=== PATIENT | female | born 1980 | race Caucasian/White ===

== ENCOUNTER 2024-10-01 19:21 | Emergency (ER) | payer MEDICAID, SELFPAY ==
[2024-10-01 19:25] VITALS: BP 140/83; PULSE 74; TEMP 36.9; O2SAT 97; BMI 25.1
--- NOTE | 2024-10-01 19:36 | ED_ITS ---
HPI - Eye Problem General Chief complaint: Eye Problems Stated complaint: cat scratched eye Time Seen by Provider: 10/01/24 19:32 Source: patient Mode of arrival: walk-in Limitations: no limitations History of Present Illness HPI Narrative: Patient is a 44-year-old female who presents to the emergency department for scratch to the right orbit that occurred just prior to arrival. She states she was scratched by her cat. Unknown last tetanus. She has no concern for . She is not sure if she was scratched in the eye but is noted to have a scratch of the right upper eyelid and a minimal scratch of the right lower orbit. No active bleeding. She denies visual loss although she states that her right eye is tearing and seems mildly blurry. She is not wearing contact lenses. Related Data Previous Rx's ?Medication ?Instructions ?Recorded amoxicillin 875 mg-potassium 1 tab PO Q12H #20 tabs 10/01/24 clavulanate 125 mg tablet hydrocodone 5 mg-acetaminophen 325 1 tab PO Q6H PRN pain 3 days #12 10/01/24 mg tablet tabs ketorolac 10 mg tablet 10 mg PO TID PRN pain #10 tabs 10/01/24 Review of Systems ROS Constitutional Denies: fever or chills Ears, nose, mouth, and throat Denies: throat pain or nasal congestion Respiratory Denies: shortness of breath Gastrointestinal Denies: nausea or vomiting Integumentary/Breast Denies: rash Neurological Denies: headache, numbness in extremities or weakness in extremities Hematologic/Lymphatic Denies: easy bruising or easy bleeding PFSH PFSH Social History Little interest or pleasure in doing things: not at all Feeling down, depressed, or hopeless: not at all Exam Narrative Exam Narrative: Gen.: Awake, alert, in no distress Head: Normocephalic, atraumatic ENT: Right eye conjunctival with no erythema or injection. Examined under Lombardi lamp with fluorescein and tetracaine, no evidence of corneal abrasion or laceration. Superficial minimal abrasion noted to the right inferior orbit and a 1.5 cm superficial laceration noted to the right eyelid. No deep laceration or extension through the eyelid noted. Normal extraocular muscle motion. Respiratory: No respiratory distress Extremities: Moves extremities equally Psych: Normal mood and affect Neuro: No focal neuro deficit Skin: Warm, dry Constitutional Vital Signs, click to edit/add: Last Vital Signs Temp 98.4 F 10/01/24 19:25 Pulse 74 10/01/24 19:25 Resp 16 10/01/24 19:25 BP 140/83 10/01/24 19:25 Pulse Ox 97 10/01/24 19:25 O2 Del Method Room Air 10/01/24 19:25 Course Vital Signs Vital signs: Vital Signs Temperature 98.4 F 10/01/24 19:25 Pulse Rate 74 10/01/24 19:25 Respiratory Rate 16 10/01/24 19:25 Blood Pressure 140/83 10/01/24 19:25 Pulse Oximetry 97 10/01/24 19:25 Oxygen Delivery Method Room Air 10/01/24 19:25 Temperature 98.4 F 10/01/24 19:25 Pulse Rate 74 10/01/24 19:25 Respiratory Rate 16 10/01/24 19:25 Blood Pressure 140/83 10/01/24 19:25 Pulse Oximetry 97 10/01/24 19:25 Oxygen Delivery Method Room Air 10/01/24 19:25 MDM - Eye Problem MDM Narrative Medical decision making narrative: Patient did decline a tetanus update in the emergency department as she has multiple allergies to additives and injections, she will check with her primary care office about a tetanus update in the next 72 hours. The abrasions were cleansed with saline, the eyelid laceration was approximated only in the center of the laceration with a small amount of tissue adhesive to allow for better healing. No indication for sutures at this time. The remainder of the laceration is well approximated. Stain and exam of the conjunctive and cornea show no evidence of corneal abrasion or laceration. Augmentin, short course of analgesics and NSAIDs given for home. Follow-up with PCP and return to the ER if symptoms change or worsen. SUPERVISED APC VISIT, PHYSICIAN ATTESTATION: Based on the medical record the care appears appropriate. ? Medical Records Attestation: I reviewed the patient's medical records. Discharge Plan Discharge Chief Complaint: Eye Problems Clinical Impression: Cat scratch of face Patient Disposition: Home, Self-Care Time of Disposition Decision: 19:52 Condition: Good Prescriptions / Home Meds: New hydrocodone-acetaminophen 5-325 mg tablet 1 tab PO Q6H PRN (Reason: pain) 3 Days Qty: 12 0RF Rx Instructions: DX: G50.1 ketorolac 10 mg tablet 10 mg PO TID PRN (Reason: pain) Qty: 10 0RF amoxicillin-pot clavulanate 875-125 mg tablet 1 tab PO Q12H Qty: 20 0RF Print Language: Macedonian Instructions: Animal Bite (ED) Additional Instructions: Please check with your doctor's office about a tetanus update if you would like one within 72 hours Referrals: Physician,Non-Staff, MD [Primary Care Provider] - 1 week
[2024-10-01] MEDS: FLUORESCEIN SODIUM 1 MG STRIP OP (19:55)
[2024-10-01] MEDS: TETRACAINE HCL 0.5% OP SOL 80 DROP/4 ML BOTTLE OP (19:55)
[2024-10-01] MEDS: AMOXICILLIN/POT CLAV 875-125 MG TABLET 1 TAB PO (20:00)
[2024-10-01 20:06] VITALS: O2SAT 100
== END 2024-10-01 20:06 | disposition home or self-care (01) ==
PROVIDERS: Emergency Provider Emergency Medicine; PCP Family Medicine
DX: S00.211A Abrasion of right eyelid and periocular area, initial encounter (principal); W55.03XA Scratched by cat, initial encounter
CPT/HCPCS: 99283

== ENCOUNTER 2025-01-16 09:53 | Outpatient (OUT) | payer MEDICAID, SELFPAY ==
[2025-01-16 10:14] LABS: Basophils Percent Auto 0.7 % (0.2-2.0); Eosinophils Absolute Auto 0.1 10^3/uL (0.0-0.7); Hematocrit 38.6 % (36.0-48.0); Hemoglobin 12.8 g/dL (12.0-16.0); Immature Granulocytes Abs Auto 0.01 10^3/uL (0.00-0.03); Immature Granulocytes Pct Auto 0.2 % (0.0-0.5); Lymphocytes Absolute Auto 1.7 10^3/uL (1.2-3.8); Lymphocytes Percent Auto 42.6 % (20.5-60.0); Mean Corpuscular HGB Conc 33.2 g/dL (29.9-35.2); Mean Corpuscular Hemoglobin 30.5 pg (26.7-34.0); Mean Corpuscular Volume 92.1 fL (81.0-99.0); Mean Platelet Volume 11.4 fL (9.5-13.5); Monocytes Absolute Auto 0.4 10^3/uL (0.3-0.8); Monocytes Percent Auto 9.3 % (1.7-12.0); Neutrophils Absolute Auto 1.8 10^3/uL (1.4-6.5); Neutrophils Percent Auto 45.2 % (43.0-75.0); Platelet Count 192 10^3/uL (150-450); Red Blood Count 4.19 10^6/uL (4.20-5.40); Red Cell Distribution Width 12.8 % (11.0-15.0); White Blood Count 4.1 10^3/uL (4.0-11.0)
[2025-01-16 11:10] LABS: Anion Gap 10.2; BUN Creatinine Ratio 28.8; Calcium 8.7 mg/dL (8.5-10.1); Carbon Dioxide 29.6 mmol/L (21.0-32.0); Chloride 105 mmol/L (98-107); Estimated GFR (African America >60 (>=60 mL/min/1.73m^2); Estimated GFR (Non-African Ame >60 (>=60 mL/min/1.73m^2); Glucose 82 mg/dL (74-106); Potassium 3.8 mmol/L (3.5-5.1); Sodium 141 mmol/L (136-145); Thyroid Stimulating Hormone 1.214 uIU/mL (0.358-3.740)
== END 2025-01-16 09:54 | disposition home or self-care (01) ==
LOC: LAB 09:57
PROVIDERS: PCP Family Medicine; Visit Provider Family Medicine
DX: Z00.00 Encounter for general adult medical examination without abnormal findings (principal)
CPT/HCPCS: 36415; 80048; 84439; 84443; 85025

== ENCOUNTER 2025-01-17 11:26 | Outpatient (OUT) | payer MEDICAID, SELFPAY ==
[2025-01-17 12:10] LABS: Alanine Aminotransferase 20 U/L (14-59); Albumin Globulin Ratio 1.1; Albumin Level 3.6 g/dL (3.4-5.0); Alkaline Phosphatase 79 U/L (46-116); Anion Gap 10.1; Aspartate Amino Transferase 16 U/L (15-37); BUN Creatinine Ratio 33.3; Bilirubin Total 0.6 mg/dL (0.2-1.0); Calcium 8.5 mg/dL (8.5-10.1); Chloride 106 mmol/L (98-107); Chol HDL Ratio 2.6; Cholesterol 237 mg/dL (<=200); Estimated GFR (African America >60 (>=60 mL/min/1.73m^2); Estimated GFR (Non-African Ame >60 (>=60 mL/min/1.73m^2); Globulin 3.2 g/dL; Glucose 76 mg/dL (74-106); HDL Cholesterol 91 mg/dL (40-60); Potassium 4.1 mmol/L (3.5-5.1); Sodium 141 mmol/L (136-145); Total Protein 6.8 g/dL (6.4-8.2); Triglycerides 31 mg/dL (<=150); VLDL CHOLESTEROL 6.2 mg/dL
== END 2025-01-17 11:27 | disposition home or self-care (01) ==
LOC: LAB 11:29
PROVIDERS: PCP Family Medicine; Visit Provider Family Medicine
DX: Z00.00 Encounter for general adult medical examination without abnormal findings (principal)
CPT/HCPCS: 36415; 80053; 80061

== ENCOUNTER 2025-02-14 08:42 | Outpatient (OUT) | payer MEDICAID, SELFPAY ==
--- OUTSIDE RECORDS SUMMARY | 2024-02-28 | XMS_ITS ---
Author Name Auto Generated Organization [facility] Care Team Providers Care Public Administration Teacher Name Role Phone NIKOLAS CABALLERO Referring Unavailable NIKOLAS CABALLERO Primary Care Unavailable PROBLEMS DATE TYPE CONDITION / CODE ATTENDING STATUS [facility] RCE 02/28/2024 Admitting diagnosis Ankyloglossia / Q38.1(ICD-10) NA Active [facility] PROCEDURES No Procedure Records Found RESULTS No Result Records Found ALLERGIES No Allergies Records Found ENCOUNTERS ADMIT/DISCHARGE ACCOUNT NUMBER ADMITTING ENCOUNTER CLASS LOC ATION SOURCE 02/28/2024 [id number] Ambulatory Building:[facility] PAYERS ENCOUNTER GUARANTOR PAYER SUBSCRIBER SOURCE 02/28/2024 LALITA SABADOB: [id number] [address] [address]Qbt: (HP) Primary Insurance:[employer] icy Number: [id number] tive Date:2022-10-26 LALITA SABADOB: [id number] [address] [address]Xvv: (RH) [facility]
--- OUTSIDE RECORDS SUMMARY | 2025-01-10 07:50 | XMS_ITS ---
Author Organization [facility] Address [address] [place] [address] Care Team Providers Care Consulting Services Project Manager Name Role Phone Queenie Suarez Primary Care Provider Dr. Ayo Bradley [facility] [phone] REASON FOR VISIT FILLING Encounters Encounter Location Date Provider Diagnosis [facility] [address] [place] [address] 01/10/2025 Ayo Bradley Plan Of Treatment Next Appt Details Provider Name:Pauline Bernard , 10/08/2025 01:00:00 PM, [address] [place], [address], Progress Notes * LALITA SABA TDOB:1980 (45 yo F)Acc No.[id number]:01/10/2025 Patient: Damaso AMIRAHLALITA Provider: Laney Bradley DDS :1980 A ge:44 Y S ex:Female Date:01/10/2025 Address:[address] [place], [place] [id number] Pcp:Queenie Delgado Subjective: * Chief Complaints: * 1 . FILLING. * Medical History: Objective: * Vitals: Assessment: Plan: * Treatment: * Images: * Electronic signature of Dr. Ayo Bradley , DMD on 02/14/2025 at 08:48 AM EDT Sign off status: Pending * Provider: Laney Bradley DDS Date: 0 01/10/2025 Generated for Refugio jaimes/Justin/Le on: 0 02/14/2025 08:48 AM EDT
--- OUTSIDE RECORDS SUMMARY | 2025-02-14 08:48 | XMS_ITS | Patient Health Record ---
Author Organization [facility] Address [address] [place] [address] Care Team Providers Care Seedling Puller Name Role Phone Queenie Suarez Primary Care Provider [phone] Dr. Ayo Bradley Unavailable [phone] Yonatan Hinton Unavailable [phone] Pauline Bernard Unavailable [phone] Haris Mensah Unavailable [phone] Mikaela Cedillo Unavailable [phone] Cristin Boudreaux Unavailable [phone] Reason For Referral No Information Encounters Encounter Location Date Provider Diagnosis [facility] [address] [place] [address] 06/12/2024 Pauline Bernard Acute gingivitis, plaque induced K05.00 [facility] [address] [place] [address] 02/12/2025 Pauline Bernard Acute gingivitis, plaque induced K05.00 [facility] [address] [place] [address] 06/13/2024 Ayo Bradley Dental caries on pit and fissure surface penetrating into dentin K02.52 [facility] [address] [place] [address] 07/03/2024 Yonatan Hinton Dental caries on pit and fissure surface penetrating into dentin K02.52 [facility] [address] [place] [address] 10/02/2024 Cristin Boudreaux Dental caries on pit and fissure surface penetrating into dentin K02.52 [facility] [address] [place] [address] 10/08/2024 Ayo Bradley Dental caries on pit and fissure surface penetrating into dentin K02.52 [facility] [address] [place] [address] 10/16/2024 Ayo Bradley Dental caries on pit and fissure surface penetrating into dentin K02.52 [address] [place] [address] 05/02/2024 Yonatan Hinton Dental caries on pit and fissure surface penetrating into dentin K02.52 ; Encounter for dental examination and cleaning with abnormal findings Z01.21 and Other dental procedure status Z98.818 [facility] [address] [place] [address] 03/25/2024 Yonatan Hinton Dental caries on pit and fissure surface penetrating into dentin K02.52 ; Necrosis of pulp K04.1 ; Acute gingivitis, plaque induced K05.00 ; Other dental procedure status Z98.818 and Encounter for dental examination and cleaning with abnormal findings Z01.21 Assessments Encounter Date Diagnosis (ICD Code) Assessment Notes Treatment Notes Treatment Clinical Notes Section Notes 03/25/2024 Dental caries on pit and fissure surface penetrating into dentin (ICD-10 - K02.52) 06/12/2024 Acute gingivitis, plaque induced (ICD-10 - K05.00) 06/13/2024 Dental caries on pit and fissure surface penetrating into dentin (ICD-10 - K02.52) 07/03/2024 Dental caries on pit and fissure surface penetrating into dentin (ICD-10 - K02.52) 10/02/2024 Dental caries on pit and fissure surface penetrating into dentin (ICD-10 - K02.52) 10/08/2024 Dental caries on pit and fissure surface penetrating into dentin (ICD-10 - K02.52) 10/16/2024 Dental caries on pit and fissure surface penetrating into dentin (ICD-10 - K02.52) 02/12/2025 Acute gingivitis, plaque induced (ICD-10 - K05.00) 05/02/2024 Dental caries on pit and fissure surface penetrating into dentin (ICD-10 - K02.52) 05/02/2024 Encounter for dental examination and cleaning with abnormal findings (ICD-10 - Z01.21) 03/25/2024 Necrosis of pulp (ICD-10 - K04.1) 03/25/2024 Acute gingivitis, plaque induced (ICD-10 - K05.00) 05/02/2024 Other dental procedure status (ICD-10 - Z98.818) 03/25/2024 Other dental procedure status (ICD-10 - Z98.818) 03/25/2024 Encounter for dental examination and cleaning with abnormal findings (ICD-10 - Z01.21) Plan Of Treatment Next Appt Details Provider Name:Pauline Bernard , 10/08/2025 01:00:00 PM, [address], [place], [address], Insurance Providers Payer Name Payer Address Payer Phone Subscriber Number Group Number Insured Name Patient Relationship to Insured Coverage Start Date Coverage End Date Dental Effie DQ [address] [place] [address] [id number] LALITA SABA Self - patient is the insured 4 4 [facility] [address] [place] [address] [id number] LALITA SABA Self - patient is the insured 4 4 DENTAL [employer]ERTY [address] [address] [place] [address] [id number] LALITA SABA Self - patient is the insured 5 Dental Effie DQ [address] [place] [address] [id number] LALITA SABA Self - patient is the insured [address] [facility] Effie BCBS [address] [place] [address] [phone] [id number] LALITA SABA Self - patient is the insured 5 5
--- OUTSIDE RECORDS SUMMARY | 2025-02-14 08:48 | XMS_ITS | Clinical Summary ---
Author Organization [facility] Address [address] [place] [address] Care Team Providers Care Bandage Maker Name Role Phone Jeny Regan MD Primary Care Provider [phone] Allergies Active Allergy Reactions Criticality Noted Date Comments [place] Oil 07/19/2023 Other Reaction(s): Unknown Milk-Related Compounds 07/19/2023 Other Reaction(s): headache, flushed Shellfish Allergy Itching 05/17/2019 Shellfish-Derived Products Other Reaction(s): Unknown Soy Allergy (Obsolete) Swelling 05/17/2019 Soybean-Containing Drug Products 07/19/2023 Other Reaction(s): Unknown Wheat 07/19/2023 Other Reaction(s): feels mentally slow Medications Probiotic Product (Daily Probiotic) capsuleIndication s:Enteritis, noninfectious Essential-Biotics Complete (probiotic) as directed 12/19/19 Active Charcoal powderIndications :Enteritis, noninfectious GastroCleanse as directed 12/19/19 24 Active Saccharomyces boulardii 400 MG capsuleIndication s:Enteritis, noninfectious Saccharomyces boulardii 3 billion CFUs per capsule as directed 12/19/19 24 Active Active Problems Problem Noted Date Diagnosed Date 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 Chronic fatigue 07/19/2023 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 Enlarged uterus 07/19/2023 Female genital prolapse 07/19/2023 Fibromyalgia 07/19/2023 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 H/O bilateral salpingectomy 07/19/2023 Internal hordeolum 07/19/2023 Intramural leiomyoma of uterus 07/19/2023 Irregular periods 07/19/2023 Low grade squamous intraepit helial lesion (LGSIL) on cervicovaginal cytologic smear 07/19/2023 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 Restless legs 07/19/2023 Vitamin D deficiency 07/19/2023 Family History Medical History Relation Name Comments Diabetes Father Heart disease Father Hyperlipidemia Father Hypertension Father Relation Name Status Comments Brother 4 brothers Father Mother Alive Son 2 sons Social History Tobacco Use Types Packs/Day Years Used Date Smoking Tobacco: Former Cigarettes Smokeless Tobacco: Never Tobacco Cessation:Counseling Given: Yes Alcohol Use Standard Drinks/Week Comments Not Currently 0 (1 standard drink = 0.6 oz pur e alcohol) Comments No Sex and Gender Information Value Date Recorded Sex Assigned at Not on file Legal Sex Female 8:13 PM EDT Gender Identity Not on file Sexual Orientation Not on file Last Filed Vital Signs Vital Sign Reading Time Taken Comments Blood Pressure 119/74 09/27/2022 12:00 PM EST Pulse - - Temperature - - Respiratory Rate - - Oxygen Saturation - - Inhaled Oxygen Concentration - - Weight 70.8 kg (156 lb) 12/19/2023 2:42 PM EDT Height 170.2 cm (5' 7 ) 12/19/2023 2:42 PM EDT Body Mass Index 24.43 12/19/2023 2:42 PM EDT Plan of Treatment Not on file Insurance [employer] [place] Care Teams Bandage Maker Relationship Specialty Start Date End Date Jeny Regan MD PCP - General Family Medicine 05/30/23
--- OUTSIDE RECORDS SUMMARY | 2025-02-14 08:48 | XMS_ITS | Clinical Summary ---
Author Organization [facility] Address [address] [place] [address] Care Team Providers Care Him Clerk Name Role Phone Jeny Regan MD Primary Care Provider [phone] Social History Tobacco Use Types Packs/Day Years Used Date Smoking Tobacco: Never Assessed Comments Unknown Sex and Gender Information Value Date Recorded Sex Assigned at Not on file Legal Sex Female 10:19 AM EST Gender Identity Not on file Sexual Orientation Not on file Plan of Treatment Health Maintenance Due Date Last Done Comments Depression Screen 1993 Varicella vaccine (1 of 2 - 13+ 2-dose series) 1994 HIV screen 01/20/1996 Hepatitis C screen 1999 DTaP/Tdap/Td vaccine (1 - Tdap) 01/20/2000 Hepatitis B vaccine (1 of 3 - 19+ 3-dose series) 01/20/2000 Pap smear 2002 Cervical cancer screen 2011 HPV (without or with Pap) 2011 Breast cancer screen 2021 Lipids 2021 COVID-19 Vaccine (2023-2 5 season) 2024 Flu vaccine (Season Ended) 2025 HPV vaccine Aged Out No longer eligi ble based on patient's age to complete this topic Hepatitis A vaccine Aged Out No longe r eligible based on patient's age to complete this topic Hib vaccine Aged Out No longer eligi ble based on patient's age to complete this topic Meningococcal (ACWY) vaccine Aged Out No longer eligible based on patient's age to complete this topic Meningococcal B vaccine Aged Out No l onger eligible based on patient's age to complete this topic Pneumococcal 0-49 years Vaccine Aged Out No longer eligible based on patient's age to complete this topic Polio vaccine Aged Out No longer elig ible based on patient's age to complete this topic Insurance [facility] MEDICAID [place] BCBS Care Teams Him Clerk Relationship Specialty Start Date End Date Jeny Regan MD [address] [place] [id number] PCP - General Family Medicine 08/01/23
[2025-02-18 16:08] LABS: Thyroglobulin Antibody <1.0 IU/mL (0.0-0.9); Thyroid Peroxidase (TPO) Ab 23 IU/mL (0-34)
== END 2025-02-14 08:43 | disposition home or self-care (01) ==
LOC: LAB 08:46
PROVIDERS: PCP Family Medicine; Visit Provider Family Medicine
DX: R51.9 Headache, unspecified (principal); H57.10 Ocular pain, unspecified eye
CPT/HCPCS: 36415; 86376; 86800

== ENCOUNTER 2025-02-26 13:30 | Outpatient (OUT) | payer MEDICAID, SELFPAY ==
--- OUTSIDE RECORDS SUMMARY | 2025-02-26 13:32 | XMS_ITS | Clinical Summary ---
Author Organization [facility] Address [address] [place] [address] Care Team Providers Care Maintenance Assistant Name Role Phone Jeny Regan MD Primary Care Provider Allergies Active Allergy Reactions Criticality Noted Date Comments [place] Oil 07/19/2023 Other Reaction(s): Unknown Milk-Related Compounds [...] Insurance [employer] [place] Care Teams Maintenance Assistant Relationship Specialty Start Date End Date Jeny Regan MD PCP - General Family Medicine 05/30/23
--- OUTSIDE RECORDS SUMMARY | 2025-02-26 13:33 | XMS_ITS | Clinical Summary ---
Author Organization [facility] Address [address] [place] [address] Care Team Providers Care Dish Person Name Role Phone Jeny Regan MD Primary Care Provider [phone] Social History Tobacco Use Types Packs/Day Years [...] patient's age to complete this topic Insurance [facility] MEDICAID [place] BCBS Care Teams Dish Person Relationship Specialty Start Date End Date Jeny Regan MD [address] [place] [id number] PCP - General Family Medicine 08/01/23
--- NOTE | 2025-02-26 13:36 | CT_ITS ---
The [address] [address] Patient Name: LALITA SABA MRN: [id number] date: 1980 Sex: F Assigned Patient Location: CT Current Patient Location: CT Accession/Order Number: [id number] Exam Date: 02/26/2025 15:33 Report Date: 02/26/2025 15:37 At the request of: NIKOLAS CABALLERO MD Procedure: CT head/brain wo con Unenhanced head CT TECHNIQUE: Contiguous axial imaging of the head. The CT exam was performed using one or more the following dose reduction techniques: Automated exposure control, adjustment of the MA and/or Kv according to patient size, or use of the iterative reconstruction technique. COMPARISON: None HISTORY: Pain and pressure behind left eye. Headaches. Family history of aneurysm of the brain VENTRICLES: Within normal limits ATROPHY: None BRAIN PARENCHYMA: Adequate pizarro-white matter differentiation identified. HEMORRHAGE: None HERNIATION: No mass effect or herniation INFARCTION: No recent vascular distribution infarction is seen. EXTRA-AXIAL FLUID COLLECTIONS None MIDBRAIN: Unremarkable JAC: Unremarkable MEDULLA: Unremarkable SINUSES: Unremarkable ORBITS: Grossly unremarkable MASTOIDS: Unremarkable BONY STRUCTURES Intact ADDITIONAL FINDINGS: 1 cm fatty lesion in the region of the falx/corpus callosum. Likely lipoma. Likely physiologic calcification of the left basal ganglia. Desiccation a pineal gland. CT/CT head/brain wo con IMPRESSION: No acute findings. Impression dictated by: King Mahoney M.D. 02/26/2025 3:37 PM Dictation Location: [place] [address] Electronically authenticated by: [id number] Y Date: 02/26/2025 15:37
== END 2025-02-26 13:31 | disposition home or self-care (01) ==
LOC: CT 13:30
PROVIDERS: PCP Family Medicine; Visit Provider Family Medicine
DX: R51.9 Headache, unspecified (principal); Z82.49 Family history of ischemic heart disease and other diseases of the circulatory system
CPT/HCPCS: 70450

== ENCOUNTER 2025-04-20 10:36 | Emergency (ER) | payer MEDICAID, SELFPAY ==
--- OUTSIDE RECORDS SUMMARY | 2025-01-10 07:50 | XMS_ITS ---
Author Organization [facility] Address [address] [place] [address] Care Team Providers Care Drawing In Machine Tender Helper Name Role Phone Queenie Suarez Primary Care Provider Dr. Ayo Bradley [facility] [phone] REASON FOR VISIT FILLING Encounters Encounter Location Date Provider Diagnosis [facility] [address] [place] [address] 01/10/2025 Ayo Bradley Plan Of Treatment Next Appt Details Provider Name:Pauline Bernard , 10/08/2025 01:00:00 PM, [address] [place], [address], Progress Notes * LALITA SABA TDOB:1980 (45 yo F)Acc No.[id number]:01/10/2025 Patient: LALITA SHERMAN Provider: Laney Bradley DDS :1980 A ge:44 Y S ex:Female Date:01/10/2025 Address:[address] [place], [place] [phone] Pcp:Queenie Delgado Subjective: * Chief Complaints: * 1 . FILLING. * Medical History: Objective: * Vitals: Assessment: Plan: * Treatment: * Images: * Electronic signature of Dr. Ayo Bradley , DMD on 04/20/2025 at 10:43 AM EDT Sign off status: Pending * Provider: Laney Bradley DDS Date: 0 01/10/2025 Generated for Refugio jaimes/Justin/Le on: 0 04/20/2025 10:43 AM EDT
--- OUTSIDE RECORDS SUMMARY | 2025-04-14 10:00 | XMS_ITS | Encounter Summary ---
Author Organization [facility] Address [address] [place] [address] Care Team Providers Care Practice Director Name Role Phone Jeny Regan MD Primary Care Provider [phone] Reason for Visit * Reason Comments Vaginal Bleeding Encounter Details Date Type Department Care Team (Latest Contact Info) Description 04/14/2025 10:00 AM EDT [facility] [address] [facility] [address] [place] [phone] Abel Mccrary MD [address] [facility] [address] [place] [address] Encounter for gynecological examination; Abnormal uterine bleeding (AUB); Breast tenderness; Encounter for gynecological examination without abnormal finding; Encounter for screening for cervical cancer Social History Tobacco Use Types Packs/Day Years Used Date Smoking Tobacco: Former Cigarettes Smokeless Tobacco: Never Alcohol Use Standard Drinks/Week Comments Not Currently 0 (1 standard drink = 0.6 oz pur e alcohol) Comments No Sex and Gender Information Value Date Recorded Sex Assigned at Not on file Legal Sex Female 8:13 PM EDT Gender Identity Not on file Sexual Orientation Not on file documented as of this encounter Last Filed Vital Signs Vital Sign Reading Time Taken Comments Blood Pressure 126/62 04/14/2025 9:48 AM EDT Pulse - - Temperature - - Respiratory Rate - - Oxygen Saturation - - Inhaled Oxygen Concentration - - Weight 71.7 kg (158 lb) 04/14/2025 9:48 AM EDT Height - - Body Mass Index 24.75 12/19/2023 2:42 PM EDT documented in this encounter Progress Notes * Abel Mccrary MD - 04/14/2025 10:00 AM EDT Images from the original note were not included. Abel Mccrary MD Obstetrics and Gynecology Patient: Cliff Zhong : 1980 (45 y.o.) Exam Date: 04/14/2025 Reason for Visit - Chief Complaint Patient presents with Vaginal Bleeding Patient states that she has been bleeding for 10 days straight with heavy bleeding. At first the bleeding she had blood clots almost smaller than golf ball size but close, but the clots had slowed for a few days. The clotting had started back again, The patient went through two super tampons over night Monday night, her periods are usually regular Started two weeks ago on 03/31/2025, last two days more of a light flow, no longer bleeding through, feels very fatigue, sleeping 12+ hours since the bleeding started, Headache since last Monday, only got a little better with ibuprofen, only tried ibuprofen, extreme breast tenderness since Monday felt like it did when her breast started filling with milk after , no discharge, so tenderer she couldn't wear a bra History of Present Illness The patient presents with abnormal uterine bleeding. She reports starting her period on March 31, which has been unusually heavy and prolonged compared to her typical menstrual pattern. The patient normally experiences only 3-4 periods per year, with her last period occurring in September. Her typical periods last about 3 days and are light to medium in flow. This current episode of bleeding began heavier than bleeding and persisted for 10 days before slowing down. The bleeding briefly subsided yesterday but has since resumed. The patient reports taking ibuprofen in an attempt to slow the bleeding, but is unsure of its effectiveness. She has been experiencing extreme fatigue, sleeping for 24-hour periods since Monday, which is significantly longer than her usual 7 hours of sleep. The patient's menstrual history is significant for infrequent periods, occurring only 3-4 times peryear. In 2020, she underwent an ablation procedure for fibroids, avoiding a hysterectomy. A follow-up ultrasound at [facility] showed no evidence of fibroids. The patient also mentions a history of food allergies that caused anaphylaxis, which have since resolved. Despite the heavy bleeding, the patient attended a bridal shower yesterday, managing the situation by wearing black shorts and using a waterproof pad. She typically uses a menstrual cup but switched to tampons last week due to the heavy flow. Visit Vitals LMP 12/18/2021 (Approximate) OB Status Postmenopausal Smoking Status Former History of Present Illness, Associated Treatments and Results - OB History Para Term AB Living 2 0 0 0 0 0 SAB IAB Ectopic Multiple Live Births 0 0 0 0 0 # Outcome Date GA Lbr Georgi/2nd Weight Sex Type Anes PTL Lv 2 Vag-Spont 1 Vag-Spont Constitutional: Negative. HENT: Negative. Eyes: Negative. Respiratory: Negative. Cardiovascular: Negative. Gastrointestinal: Negative. Endocrine: Negative. Genitourinary: Negative. Musculoskeletal: Negative. Skin: Negative. Allergic/Immunologic: Negative. Neurological: Negative. Hematological: Negative. Psychiatric/Behavioral: Negative. Allergies Allergen Reactions Thompson Oil Other Reaction(s): Unknown Milk-Related Compounds Other Reaction(s): headache, flushed Shellfish Allergy Itching Shellfish-Derived Products Other Reaction(s): Unknown Soy Allergy (Obsolete) Swelling Soybean-Containing Drug Products Other Reaction(s): Unknown Wheat Other Reaction(s): feels mentally slow Current Outpatient Medications: Charcoal powder, GastroCleanse as directed, Disp: , Rfl: Probiotic Product (Daily Probiotic) capsule, Essential-Biotics Complete (probiotic) as directed, Disp: , Rfl: Saccharomyces boulardii 400 MG capsule, Saccharomyces boulardii 3 billion CFUs per capsule as directed, Disp: , Rfl: Past Medical History: Diagnosis Date BMI 25.0-25.9,adult Cervical vertebral fracture (HCC) 2016 Encounter for Papanicolaou cervical smear to confirm findings of recent normal smear following initial abnormal smear Enlarged uterus Fibromyalgia History of bilateral salpingectomy Hordeolum externum left upper eyelid Intramural leiomyoma of uterus LGSIL of cervix of undetermined significance Ovarian cyst Status post hysteroscopy Uterine fibroid Past Surgical History: Procedure Laterality Date APPENDECTOMY BILATERAL SALPINGOOPHORECTOMY D and C , Cervical polypectomy , diagnotics laparoscopy, bilateral salpingectomy CERVICAL DISC SURGERY decompression and fusion VAGINAL DELIVERY Family History Problem Relation Name Age of Onset Hypertension Father Hyperlipidemia Father Diabetes Father Heart disease Father Social History Tobacco Use Smoking Status Former Types: Cigarettes Smokeless Tobacco Never Physical Exam - General appearance, mentation, extraocular movements, facial strength and movement, hearing, upper and lower extremity strength and tone, sensation to gross testing, coordination, and gait are normalor at baseline unless noted below. Physical Exam Constitutional: Appearance: Normal appearance. Genitourinary: Right Labia: No rash or lesions. Left Labia: No lesions or rash. No vaginal discharge or erythema. No vaginal prolapse present. No vaginal atrophy present. Right Adnexa: not tender and no mass present. Left Adnexa: not tender and no mass present. No cervical lesion. Uterus is not tender. Uterus is anteverted. Breasts: Right: Normal. No mass or nipple discharge. Left: Normal. No mass or nipple discharge. HENT: Head: Normocephalic and atraumatic. Cardiovascular: Rate and Rhythm: Normal rate and regular rhythm. Pulmonary: Breath sounds: Normal breath sounds. Abdominal: General: There is no distension. Palpations: Abdomen is soft. There is no mass. Tenderness: There is no abdominal tenderness. Musculoskeletal: General: Normal range of motion. Cervical back: Neck supple. Lymphadenopathy: Cervical: No cervical adenopathy. Neurological: Mental Status: She is alert and oriented to person, place, and time. Skin: General: Skin is warm and dry. Psychiatric: Mood and Affect: Mood normal. Assessment/Plan ICD-10-CM 1. Encounter for gynecological examination Z01.419 2. Abnormal uterine bleeding (AUB) N93.9 Pap and exam performed. Mammogram ordered Results can be found in MyChart in 7 days Bone Return 1 year 1. Abnormal Uterine Bleeding Assessment: Patient reports irregular menstrual cycles occurring 3-4 times per year, with the most recent cycle starting on March 31, 2025. This cycle was characterized by unusually heavy bleeding, lasting 10 days before slowing down. The patient's typical cycles last about 3 days and are light to medium in flow. The infrequent menstruation (oligomenorrhea) and recent heavy, prolonged bleeding suggest a hormonal imbalance, possibly related to ovarian dysfunction or perimenopause. The irregular cycles raise concerns about potential anovulation, which could lead to endometrial hyperplasia due to unopposed estrogen stimulation. Patient history includes f ablation in 2020, with a subsequent ultrasound at [facility] showing no fibroids. Plan: - Schedule pelvic ultrasound to evaluate for fibroids, polyps, or other structural abnormalities CBC [facility] ordered - Order blood work (to be done on or Monday for proper timing) - Prescribe Lysteda (tranexamic acid) for management of heavy menstrual bleeding - Take 3 times daily for 5 days - Informed patient that if ineffective, alternative treatments will be considered - Provide samples of Slynd - Consider endometrial biopsy based on ultrasound findings - Follow-up appointment to review test results and adjust treatment plan as needed - Educate patient on the importance of more regular menstrual cycles (every 60- 90 days) to reduce risk of endometrial hyperplasia Pt with multiple allergies including lactose ,corn oil and soy hampering hormonal treatment [place] is not covered by her insurance Pt with multiple allergies including corn oil,,soy and lactose Synd na due to lactose allergy Progesterone supp without corn oil or soy sent to [facility] pharmacy [place] with cornoil Assessment & Plan documented in this encounter Plan of Treatment Upcoming Encounters Date Type Department Care Team (Late st Contact Info) Description 04/25/2025 9:30 AM EDT Ancillary Procedure [facility] [place] [facility] [address] [place] [address] 04/25/2025 10:00 AM EDT Ancillary Procedure [facility] [place] [facility] [address] [place] [address] 04/25/2025 10:30 AM EDT Ancillary Procedure [facility] [place] [facility] [address] [place] [address] 04/30/2025 8:30 AM EDT Ancillary Procedure [facility] [place] [facility] [address] [place] [address] 04/30/2025 8:45 AM EDT Office Visit [facility] [place] [facility] [address] [place] [address] Abel Mccrary MD [address] [place] [address] Scheduled Orders Name Type Priority Associated Diagnoses Orde r Schedule Bilateral diagnostic mammogram with tomosynthesis Imaging Routine Breast tenderness Expected: 04/14/2025, Expires: 06/15/2026 Progesterone Lab Routine Abnormal uterine bleeding (AUB) Ordered: 04/14/2025 documented as of this encounter Procedures Procedure Name Priority Date/Time Associated Diagnosis Comments PCOS DIAGNOSTIC PROFILE Routine 04/14/2025 11:13 AM EDT Abnormal uterine bleeding (AUB) IRON AND TOTAL IRON BINDING CAPACITY Routine 04/14/2025 11:13 AM EDT Abnormal uterine bleeding (AUB) PROGESTERONE Routine 04/14/2025 11:13 AM EDT CBC Routine 04/14/2025 11:13 AM EDT Abnormal uterine bleeding (AUB) FERRITIN Routine 04/14/2025 11:13 AM EDT Abnormal uterine bleeding (AUB) IGP, APT HPV,RFX 16/18,45 Routine 04/14/2025 12:00 AM EDT Abnormal uterine bleeding (AUB) Encounter for gynecological examination without abnormal finding Encounter for screening for cervical cancer documented in this encounter Results * Progesterone (04/14/2025 11:13 AM EDT) Progesterone 2.8 ng/mL [facility] Comment: Follicular phase 0.1 - 0.9 Luteal phase 1.8 - 23.9 Ovulation phase 0.1 - 12.0 First trimester 11.0 - 44.3 Second trimester 25.4 - 83.3 Third trimester 58.7 - 214.0 Postmenopausal 0.0 - 0.1 04/14/2025 11:1 3 AM EDT 04/14/2025 Narrative [facility] - 04/19/2025 8:07 PM EDT Performed at: 02 - [facility] [id number] Certified Phlebotomist: Nnamdi Adame PhD, Phone: [phone] us Abel Mccrary MD LAB BLOOD ORDERABLES Final Res ult Performing Organization Address City/State/[facility] Co de Phone Number [facility] * Ferritin (04/14/2025 11:13 AM EDT) [facility] Ferritin 83 15 - 150 ng/mL [facility] Blood Venous blood specimen / Unknown 04/14/2025 11:13 AM EDT 04/14/2025 Narrative [facility] - 04/19/2025 8:07 PM EDT Performed at: [address] [id number] Certified Phlebotomist: Nnamdi Adame PhD, Phone: [phone] Abel Mccrary MD LAB BLOOD ORDERABLES Final Res ult Performing Organization Address [facility] de Phone Number [facility] * Iron and TIBC (04/14/2025 11:13 AM EDT) [facility] Iron Bind.Cap.(TIBC) 305 250 - 450 ug/dL [facility] UIBC 227 131 - 425 ug/dL [facility] Iron 78 27 - 159 ug/dL [facility] Iron Saturation 26 15 - 55 % [facility] Blood Venous blood specimen / Unknown 04/14/2025 11:13 AM EDT 04/14/2025 Narrative [facility] - 04/19/2025 8:07 PM EDT Performed at: [facility] [id number] Certified Phlebotomist: Nnamdi Adame PhD, Phone: [phone] Abel Mccrary MD LAB BLOOD ORDERABLES Final Res ult Performing Organization Address [facility] Co de Phone Number [facility] * (ABNORMAL) CBC (04/14/2025 11:13 AM EDT) [facility] WBC 5.1 3.4 - 10.8 x10E3/uL [facility] RBC 3.70(L) 3.77 - 5.28 x10E6/uL [facility] Hgb 11.2 11.1 - 15.9 g/dL [facility] Hct 36.4 34.0 - 46.6 % [facility] MCV 98(H) 79 - 97 fL [facility] MCH 30.3 26.6 - 33.0 pg [facility] MCHC 30.8(L) 31.5 - 35.7 g/dL [facility] RDW 13.2 11.7 - 15.4 % [facility] Platelets 213 150 - 450 x10E3/uL [facility] Blood Venous blood specimen / Unknown 04/14/2025 11:13 AM EDT 04/14/2025 Narrative [facility] - 04/19/2025 8:07 PM EDT Performed at: 02 - [address] [id number] Certified Phlebotomist: Nnamdi Adame PhD, Phone: [phone] us Abel Mccrary MD LAB BLOOD ORDERABLES Final Res ult [facility] * (ABNORMAL) PCOS Diagnostic Profile (04/14/2025 11:13 AM EDT) Pathologist [facility] TSH 1.7 uU/mL [facility] Comment: Reference Range: Non- Adult 0.450-4.500 First Trimester 0.100-4.000 Second Trimester 0.200-4.000 Third Trimester 0.300-4.500 Testost 33 ng/dL [facility] Comment: This test was developed and its performance characteristics determined by [facility]. It has not been cleared or approved by the Food and Drug Administration. Reference Range: Adult Females Premenopausal 10 - 55 Postmenopausal 7 - 40 % Free Testost (Dialysis) 0.3 % [facility] Comment: This test was developed and its performance characteristics determined by [facility]. It has not been cleared or approved by the Food and Drug Administration. Reference Range: Adult Females: 0.8 - 1.4 Free Testosterone 1.0(L) pg/mL [facility] Comment: Reference Range: Adult Females: 1.1 - 6.3 LH Ped 5.3 mIU/mL [facility] Comment: This test was developed and its performance characteristics determined by [facility]. It has not been cleared or approved by the Food and Drug Administration. Reference Range: Follicular: 2 - 9 Mid-cycle peak: 18 - 49 Luteal: 2 - 11 Postmenopausal: 20 - 70 FSH Ped 12 mIU/mL [facility] Comment: This test was developed and its performance characteristics determined by [facility]. It has not been cleared or approved by the Food and Drug Administration. Reference Range: Follicular and Luteal: 1.8 - 11.2 Mid-cycle peak: 6 - 35 Postmenopausal: 30 - 120 Prolactin 6.34 ng/mL [facility] Comment: Hook effect or prozone effect has been ruled out by performing additional dilution analysis on all prolactin testing. Reference Range: Female Children and Adults: 4.79 - 23.3 17-Alpha-OH Progest 117 ng/dL [facility] Comment: This test was developed and its performance characteristics determined by [facility]. It has not been cleared or approved by the Food and Drug Administration. Reference Range: Adult Female Follicular: 15 - 70 Luteal: 35 - 290 DHEA-S LCMS 51 ug/dL [facility] Comment: This test was developed and its performance characteristics determined by [facility]. It has not been cleared or approved by the Food and Drug Administration. Reference Range: Adult Females (41 - 50y): <229 Sex Hormone Bind Glob 235.0(H) nmol/L [facility] Comment: Confirmed by dilution. Reference Range: Pubertal: 36.0 - 125.0 20 - 49y: 24.6 - 122.0 >49y: 17.3 - 125.0 Estradiol MS 308(H) pg/mL [facility] Comment: This test was developed and its performance characteristics determined by [facility]. It has not been cleared or approved by the Food and Drug Administration. Reference Range: Adult Females Follicular: 30 - 100 Luteal: 70 - 300 Postmenopausal: <15 Mullerian AMH 0.015 ng/mL [facility] Comment: For assays employing antibodies, the possibility exists for interference by heterophile antibodies in the samples.1 1.Basil Mcclendon. Interferences in Immunoassays - still a threat. Clin. Chem. 2000; 46: 1483-5340. This test was developed and its performance characteristics determined by [facility]. It has not been cleared or approved by the Food and Drug Administration. Reference Range: Females 41 - 46y: 0.26 - 5.81 Median 0.58 AMH concentrations of >= 1.06 ng/mL is correlated with a better response to ovarian stimulation, produced more retrievable oocytes and higher odds of live according to Tu et al. Fertility and Sterility. 2010: 94:0752-8144. The current AMH test method correlates with the study method with a slope of 0.94. Females at risk of ovarian hyperstimulation syndrome or polycystic ovarian syndrome (PCOS) may exhibit elevated serum AMH concentrations. AMH levels from PCOS patients may be 2 to 5 fold higher than age-appropriate reference interval values. Granulosa cell tumors of the ovary may secrete AMH along with other tumor markers. Elevated AMH is not specific for malignancy, and the assay should not be used exclusively to diagnose or exclude an AMH-secreting ovarian tumor. Blood Venous blood specimen / Unknown 04/14/2025 11:13 AM EDT 04/14/2025 Narrative [facility] - 04/19/2025 8:07 PM EDT Performed at: [facility] [address] [place] [id number] Certified Phlebotomist: Peter Carrasco MD, Phone: [phone] us Abel Mccrary MD LAB BLOOD ORDERABLES Final Res ult [facility] * IGP, APT HPV,RFX 16/18,45 (04/14/2025 12:00 AM EDT) Diagnosis: Comment [facility] Comment: NEGATIVE FOR INTRAEPITHELIAL LESION OR MALIGNANCY. SPECIMEN REPROCESSED FOR INTERPRETATION USING GLACIAL ACETIC ACID (GAA). Specimen Adequacy: Comment [facility] Comment: Satisfactory for evaluation. Endocervical and/or squamous metaplastic cells (endocervical component) are present. Areas of partially obscuring blood are present. Clinician Provided ICD10: Comment [facility] Comment: N93.9 Z01.419 Z12.4 Performed By: Comment [facility] Comment:Julio César Calhoun, Cytolog ist (ASCP) QC Reviewed By: Comment [facility] Comment:Katheryn Abraham Cytol ogist (ASCP) Cyto Comments . [facility] Note: Comment [facility] Comment: The Pap smear is a screening test designed to aid in the detection of premalignant and malignant conditions of the uterine cervix. It is not a diagnostic procedure and should not be used as the sole means of detecting cervical cancer. Both false-positive and false-negative reports do occur. Test Methodology: Comment [facility] Comment: This liquid based ThinPrep(R) pap test was screened with the use of an image guided system. HPV Aptima Negative Negative [facility] Comment: This nucleic acid amplification test detects fourteen high-risk HPV types (16,18,31,33,35,39,45,51,52,56,58,59,66,68) without differentiation. Vaginal Fluid 04/14/2025 04/15/2025 Narrative [facility] - 04/18/2025 10:07 AM EDT Performed at: 01 - [address] [id number] Certified Phlebotomist: Masha Smith MD, Phone: [phone] Performed at: 02 - [address] [id number] Certified Phlebotomist: Masha Smith MD, Phone: [phone] Specimen Comment: No. of containers..01 ThinPrep Vial us Abel Mccrary MD LAB BLOOD ORDERABLES Final Res ult [facility] documented in this encounter Visit Diagnoses Diagnosis Encounter for gynecological examination Abnormal uterine bleeding (AUB) Breast tenderness Mastodynia Encounter for gynecological examination without abnormal finding Encounter for screening for cervical cancer documented in this encounter Care Teams Practice Director Relationship Specialty Start Date End Date Jeny Regan MD [address] [place] [address] PCP - General Family Medicine 05/30/23 documented as of this encounter
[2025-04-20 10:40] VITALS: BP 128/93; PULSE 98; TEMP 36.8; O2SAT 98; BMI 24.7
--- OUTSIDE RECORDS SUMMARY | 2025-04-20 10:43 | XMS_ITS | Encounter Summary ---
Author Organization [facility] Address [address] [place] [address] Care Team Providers Care Single Needle Operator Name Role Phone Jeny Regan MD Primary Care Provider [phone] Encounter Details Date Type Department Care Team (Late Contact Info) Description 04/18/2025 Results Follow-Up [facility] [address] [place] [phone] Abel Mccrary MD [address] [place] [address] Social History Tobacco Use Types Packs/Day Years [...] on file documented as of this encounter Plan of Treatment Upcoming Encounters Date Type Department Care Team (Late Contact Info) Description 04/25/2025 9:30 AM EDT Ancillary Procedure [facility] [facility] [address] [place] [phone] 04/25/2025 10:00 AM EDT Ancillary Procedure [facility] [address] [place] [address] 04/25/2025 10:30 AM EDT Ancillary Procedure [facility] [address] [place] [address] 04/30/2025 8:30 AM EDT Ancillary Procedure [facility] [place] [facility] [address] [place] [phone] 04/30/2025 8:45 AM EDT Office [facility] [address] [place] [phone] Abel Mccrary MD [address] [place] [address] documented as of this encounter Visit Diagnoses Not on filedocumented in this encounter Care Teams Single Needle Operator Relationship Specialty Start Date End Date Jeny Regan MD [address] [facility] [place] [address] PCP - General Family Medicine 05/30/23 documented as of this encounter
--- OUTSIDE RECORDS SUMMARY | 2025-04-20 10:43 | XMS_ITS | Clinical Summary ---
Author Organization [facility] Address [address] [place] [address] Care Team Providers Care Tip Puncher Name Role Phone Jeny Regan MD Primary Care Provider [phone] Allergies Active Allergy Reactions Criticality Noted Date Comments [place] Oil 07/19/2023 Other Reaction(s): Unknown Milk-Related Compounds 07/19/2023 Other Reaction(s): headache, flushed Shellfish Allergy Itching 05/17/2019 Shellfish-Derived Products Other Reaction(s): Unknown Soy Allergy (Obsolete) Swelling 05/17/2019 Soybean-Containing Drug Products 07/19/2023 Other Reaction(s): Unknown Wheat 07/19/2023 Other Reaction(s): feels mentally slow Medications norethindrone (Micronor) 0.35 MG tabletIndication s:Abnormal uterine bleeding (AUB) Take 1 tablet (0.35 mg) by mouth Daily 28 tablet 11 025 2025 Active Probiotic Product (Daily Probiotic) capsuleIndicatio ns:Enteritis, noninfectious Essential-Biotic s Complete (probiotic) as directed 024 2024 Discontinued Charcoal powderIndication s:Enteritis, noninfectious GastroCleanse as directed 024 2024 Discontinued Saccharomyces boulardii 400 MG capsuleIndicatio ns:Enteritis, noninfectious Saccharomyces boulardii 3 billion CFUs per capsule as directed 024 2024 Discontinued Active Problems Problem Noted Date Diagnosed Date 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 Chronic fatigue 07/19/2023 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 Enlarged uterus 07/19/2023 Female genital prolapse 07/19/2023 Fibromyalgia 07/19/2023 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 23 H/O bilateral salpingectomy 07/19/2023 Internal hordeolum 07/19/2023 Intramural leiomyoma of uterus 07/19/2023 Irregular periods 07/19/2023 Low grade squamous intraepit helial lesion (LGSIL) on cervicovaginal cytologic smear 07/19/2023 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 Restless legs 07/19/2023 Vitamin D deficiency 07/19/2023 Encounters Date Type Department Care Team Description 04/18/2025 Results Follow-Up [facility] [place] [facility] [address] [place] [address] Abel Mccrary MD 04/15/2025 Telephone [facility] [place] [facility] [address] [place] [address] Abel Mccrary MD 04/15/2025 Orders Only [facility] [place] [facility] [address] [place] [address] Abel Mccrary MD Breast tenderness; Fullness of breast 04/14/2025 10:00 AM EDT Office Visit [facility] [place] [facility] [address] [place] [address] Abel Mccrary MD Encounter for gynecological examination; Abnormal uterine bleeding (AUB); Breast tenderness; Encounter for gynecological examination without abnormal finding; Encounter for screening for cervical cancer 04/14/2025 Travel 04/10/2025 Telephone [facility] [place] [facility] [address] [place] [address] David Real DO Appointment Request from Last 3 Months Family History Medical History Relation Name Comments [...] (158 lb) 04/14/2025 9:48 AM EDT Height 170.2 cm (5' 7 ) 12/19/2023 2:42 PM EDT Body Mass Index 24.75 12/19/2023 2:42 PM EDT Plan of Treatment Upcoming Encounters Date Type Department Care Team (Late st Contact Info) Description 04/25/2025 9:30 AM EDT Ancillary Procedure [facility] [facility] [address] [place] [address] 04/25/2025 10:00 AM EDT Ancillary Procedure [facility] [address] [place] [address] 04/25/2025 10:30 AM EDT Ancillary Procedure [facility] [address] [place] [address] 04/30/2025 8:30 AM EDT Ancillary Procedure [facility] [address] [place] [address] 04/30/2025 8:45 AM EDT Office Visit [facility] [address] [place] [address] Abel Mccrary MD [address] [place] [address] Procedures Procedure Name Priority Date/Time Associated Diagnosis Comments PROGESTERONE Routine 04/14/2025 11:13 AM EDT PCOS DIAGNOSTIC PROFILE Routine 04/14/2025 11:13 AM EDT Abnormal uterine bleeding (AUB) FERRITIN Routine 04/14/2025 11:13 AM EDT Abnormal uterine bleeding (AUB) IRON AND TOTAL IRON BINDING CAPACITY Routine 04/14/2025 11:13 AM EDT Abnormal uterine bleeding (AUB) CBC Routine 04/14/2025 11:13 AM EDT Abnormal uterine bleeding (AUB) IGP, APT HPV,RFX 16/18,45 Routine 04/14/2025 12:00 AM EDT Abnormal uterine bleeding (AUB) Encounter for gynecological examination without abnormal finding Encounter for screening for cervical cancer from Last 3 Months Results * (ABNORMAL) PCOS Diagnostic Profile (04/14/2025 11:13 AM EDT) TSH 1.7 uU/mL [facility] Comment: Reference Range: [...] still a threat. Clin. Chem. 2000; 46: 5798-2903. This test was developed and its performance characteristics determined by [facility]. It has not been cleared or approved by the Food and Drug Administration. Reference Range: Females 41 - 46y: 0.26 - 5.81 Median 0.58 AMH concentrations of >= 1.06 ng/mL is correlated with a better response to ovarian stimulation, produced more retrievable oocytes and higher odds of live according to Sharroner et al. Fertility and Sterility. 2010: 94:3102-8117. The current AMH test method correlates with [...] - 04/19/2025 8:07 PM EDT Performed at: 01 - [facility] [address] [place] [id number] Database Marketing Analyst: Peter Carrasco MD, Phone: [phone] Abel Mccrary MD LAB BLOOD ORDERABLES Final Res ult Performing Organization Address [facility] Co de Phone Number [facility] * Iron and TIBC (04/14/2025 11:13 AM EDT) Pathologist [facility] Iron Bind.Cap.(TIBC) 305 250 - 450 ug/dL [facility] UIBC 227 131 - 425 ug/dL [facility] Iron 78 27 - 159 ug/dL [facility] Iron Saturation 26 15 - 55 % [facility] Blood Venous blood specimen / Unknown 04/14/2025 11:13 AM EDT 04/14/2025 Narrative [facility] - 04/19/2025 8:07 PM EDT Performed at: 02 - [address] [id number] Database Marketing Analyst: Nnamdi Adame PhD, Phone: [phone] Abel Mccrary MD LAB BLOOD ORDERABLES Final Res ult Performing Organization Address City/[facility]/ZIP Co de Phone Number [facility] * Progesterone (04/14/2025 11:13 AM EDT) Progesterone 2.8 ng/mL [facility] Comment: Follicular phase 0.1 - 0.9 Luteal phase 1.8 - 23.9 Ovulation phase 0.1 - 12.0 First trimester 11.0 - 44.3 Second trimester 25.4 - 83.3 Third trimester 58.7 - 214.0 Postmenopausal 0.0 - 0.1 04/14/2025 11:1 3 AM EDT 04/14/2025 Narrative [facility] - 04/19/2025 8:07 PM EDT Performed at: [address] [place] [id number] Database Marketing Analyst: Nnamdi Adame PhD, Phone: [phone] us Abel Mccrary MD LAB BLOOD ORDERABLES Final Res ult Performing Organization Address City/[facility]/ZIP Co de Phone Number [facility] * (ABNORMAL) CBC (04/14/2025 11:13 AM EDT) [facility] WBC 5.1 3.4 - 10.8 x10E3/uL [facility] [...] - 04/19/2025 8:07 PM EDT Performed at: [address] [place] [id number] Database Marketing Analyst: Nnamdi Adame PhD, Phone: [phone] us Abel Mccrary MD LAB BLOOD ORDERABLES Final Res ult Performing Organization Address City/[facility]/ZIP Co de Phone Number [facility] * Ferritin (04/14/2025 11:13 AM EDT) Ferritin 83 15 - 150 ng/mL [facility] Blood Venous blood specimen / Unknown 04/14/2025 11:13 AM EDT 04/14/2025 Narrative [facility] - 04/19/2025 8:07 PM EDT Performed at: 02 - [address] [id number] Database Marketing Analyst: Nnamdi Adame PhD, Phone: [phone] us Abel Mccrary MD LAB BLOOD ORDERABLES [...] (ASCP) QC Reviewed By: Comment [facility] Comment:Katheryn Abraham, Cytol ogist (ASCP) Cyto Comments . [facility] [...] 10:07 AM EDT Performed at: 01 - [facility] [address] [id number] Database Marketing Analyst: Masha Smith MD, Phone: [phone] Performed at: 02 - [facility] [address] [place], [place] [id number] Database Marketing Analyst: Masha Smith MD, Phone: [phone] Specimen Comment: No. of containers..01 ThinPrep Vial us Abel Mccrary MD LAB BLOOD ORDERABLES Final Res ult [facility] from Last 3 Months Insurance [facility] MEDICAID [place] Care Teams Tip Puncher Relationship Specialty Start Date End Date Jeny Regan MD [address] [place] [phone] PCP - General Family Medicine 05/30/23
--- OUTSIDE RECORDS SUMMARY | 2025-04-20 10:43 | XMS_ITS | Encounter Summary ---
Author Organization [facility] Address [address] [place] [address] Care Team Providers Care Stamping Die Try Out Worker Name Role Phone Jeny Regan MD Primary Care Provider [phone] Reason for Visit * Reason Onset Date Comments Appointment Request 04/10/2025 Encounter Details Date Type Department Care Team (Late st Contact Info) Description 04/10/2025 Telephone [facility] [place] [facility] [address] [facility] [address] [place] [address] David Real DO [address] [place] [address] Appointment Request Social History Tobacco Use Types Packs/Day Years [...] on file documented as of this encounter Miscellaneous Notes * Telephone Encounter - Ping Chavez LPN - 04/10/2025 11:10 AM EDT Spoke with pt she is scheduled 04/14/25 She is appreciative to be worked in * Telephone Encounter - Aniya Anderson - 04/10/2025 10:37 AM EDT Armin the 21st is perfectly fine * Telephone Encounter - Ping Chavez LPN - 04/10/2025 8:49 AM EDT Spoke with pt, she reports this is new to her, normally her cycles are well regulated. Pt states she has noticed increased neck pain & pulsating with the heavy bleeding. She admits to clotting,and reports it seems to be heavier at night. She admits to some N/V but not for a couple days. She states her last OBGYN physician retried so she is trying to establish with someone new. Pt is very scared and concerned since she has never experienced this before. Asked pt is she has tried ibuprofen, she states she took some last night, and it help with the neck pain but not the bleeding. Pt wouldprefer to establish with [facility] ( female provider) encouraged her to reach out to Dr. Cummings for possibly earlier appt. Pt has PMHx of tubal ligation in 2020. Pt is sexually active, denies any pain withSI. She denies any family history on cervical CA. Pt has 2 children SVB. Pt states she does have past history of fibroids , however was advised they have dissipated Advised pt until we are able to schedule for new appt I am not able to provide any kind of suggestions, however if she has been bleeding for 10 days, and experiences any kind of weakness or feeling lightheaded she should go to the ER for evaluation. Pt voiced understating encouraged her to reach out to PCP for additional recommendations. Will forward to provider for review. * Telephone Encounter - Jennifer Porras - 04/10/2025 8:14 AM EDT Patient is calling trying to get an apt today. The patient states that she has been bleeding for 10days straight with heavy bleeding. At first the bleeding she had blood clots almost the size of a golf ball but the clots had stopped for a few days. The clotting had started back and it is a little bigger than a gum ball. The patient went through two super tampons over night and is on her first for the morning. She is concerned and waiting to be seen today or see if she should be going to the ER. Please call back and advise. documented in this encounter Plan of Treatment Upcoming Encounters Date Type Department Care Team (Late st Contact Info) Description 04/25/2025 9:30 AM EDT Ancillary Procedure [facility] [facility] [address] [place] [address] 04/25/2025 10:00 AM EDT Ancillary Procedure [facility] [facility] [address] [place] [address] 04/25/2025 10:30 AM EDT Ancillary Procedure [facility] [facility] [address] [place] [address] 04/30/2025 8:30 AM EDT Ancillary Procedure [facility] [facility] [address] [place] [address] 04/30/2025 8:45 AM EDT Office Visit [facility] [place] [facility] [address] [place] [address] Abel Mccrary MD [address] [place] [address] documented as of this encounter Visit Diagnoses Not on filedocumented in this encounter Care Teams Stamping Die Try Out Worker Relationship Specialty Start Date End Date Jeny Regan MD [address] [facility] [place] [address] PCP - General Family Medicine 05/30/23 documented as of this encounter
--- OUTSIDE RECORDS SUMMARY | 2025-04-20 10:43 | XMS_ITS | Clinical Summary ---
Author Organization [facility] Address [address], [address] [place] [address] Care Team Providers Care Postage Machine Operator Name Role Phone Jeny Regan MD Primary Care Provider [phone] Social History Tobacco Use Types Packs/Day Years [...] Vaccine (2023-2 5 season) 2024 Flu vaccine (#1) 04/25/2025 HPV vaccine Aged Out No longer eligi [...] patient's age to complete this topic Insurance [facility] [place]ID [place] Care Teams Postage Machine Operator Relationship Specialty Start Date End Date Jeny Regan MD [address] [place] [phone] PCP - General Family Medicine 08/01/23
--- OUTSIDE RECORDS SUMMARY | 2025-04-20 10:43 | XMS_ITS | CCD ---
Author Organization [facility] Care Team Providers Care Opener Tender Name Role Phone DR JENY REGAN Admitting Unavailable REGAN, DR JENY Marroquin Primary Care Unavailable REGAN, DR JENY Marroquin Attending Unavailable KARASIK, DR AYON Consulting Unavailable KARASIK, DR AYON Attending Unavailable REGAN, DR JENY Marroquin Primary Care Unavailable KARASIK, DR AYON Admitting Unavailable Regan, Jeny Unavailable Jeny Regan MD Primary Care Provider [phone] ADA, JENY Referring Unavailable REGAN, JENY Primary Care Unavailable REGAN, JENY Referring Unavailable REGAN, JENY Primary Care Unavailable REGAN, JENY Referring Unavailable REGAN, EJNY Primary Care Unavailable REGAN, JENY Referring Unavailable REGAN, JENY Primary Care Unavailable REGAN, JENY Referring Unavailable REGAN, JENY Primary Care Unavailable REGAN, JENY Referring Unavailable REGAN, JENY Primary Care Unavailable REGAN, JENY Referring Unavailable REGAN, JENY Primary Care Unavailable REGAN, JENY Referring Unavailable REGAN, JENY Primary Care Unavailable REGAN, JENY Primary Care Unavailable REGAN, JENY Referring Unavailable REGAN, JENY Referring Unavailable REGAN, JENY Primary Care Unavailable REGAN, JENY Referring Unavailable REGAN, JENY Primary Care Unavailable Jeny Regan MD Primary Care Provider AMNA HILL Attending Unavailable Allergies Allergy Classification Reported Allergen(s) Allergy Type Date of Onset Reaction(s) Facility (1 source) Morphine Drug Allergy [facility] (1 source) Shellfish Drug allergy (disorder) [facility] (1 source) Beets preparation Drug Allergy 5 itchy throat, ears [facility] (1 source) corn extract Drug Allergy 5 Hives [facility] (1 source) Milk Allergy to substance 5 headache, flushed [facility] (1 source) Shellfish Allergy to substance 5 SHELL FISH [facility] (1 source) Soybean preparation Drug Allergy 5 [facility] (3 sources) Wheat preparation Drug Allergy 3 feels mentally slow [facility] (1 source) Soybean-contain ing Drug Produc Allergy to substance 4 [facility] Comment on above: Free Text Allergy: S oybean-containing Drug Products (1 source) SUGARBEETS Allergy to substance 4 [facility] (2 sources) [place] Oil Drug Allergy 3 [facility] (2 sources) Shellfish Allergy to substance 9 Itching [facility] (2 sources) Soy protein Allergy to substance 9 Swelling [facility] (2 sources) Milk-Related Compounds Drug Allergy 3 [facility] (2 sources) Shellfish-Deriv ed Products Drug Allergy 3 [facility] (2 sources) Soybean-Contain ing Drug Products Drug Allergy 3 [facility] Medications Current Medications Medication Drug Class(es) Dates Sig (Normalized) Sig (Original) norethindrone 0.35 mg oral tablet (2 sources) Start: 04-14-2025 End: 04-14-2026 take 1 tablet by mouth once daily norethindrone (Micronor) 0.35 MG tablet Indications: Abnormal uterine bleeding (AUB) Take 1 tablet (0.35 mg) by mouth Daily 28 tablet 11 04/14/2025 04/14/2026 Active Completed/Discontinued Medications Medication Drug Class(es) Dates Sig (Normalized) Sig (Original) activated charcoal 80922 mg powder for oral suspension (2 sources) Start: 12-19-2023 End: 04-14-2025 Charcoal powder Indications: Enteritis, noninfectious GastroCleanse as directed 12/19/2023 04/14/2025 Discontinued azithromycin 250 mg oral tablet (1 source) Macrolide Antimicrobial Start: 12-04-2023 End: 10-11-2024 Azithromycin 250 mg tablet Discontinued 0 PO .COMPLEX 6 December 04, 2023 12:00am October 11, 2024 2:48pm For 250 mg dose pack: take 500 mg today (day 1), then 250 mg for 4 days (days 2-5) PO bifidobacterium animalis [id number] unt / lactobacillus acidophilus [id number] unt oral capsule (2 sources) Start: 12-19-2023 End: 04-14-2025 Probiotic Product (Daily Probiotic) capsule Indications: Enteritis, noninfectious Essential-Biotics Complete (probiotic) as directed 12/19/2023 04/14/2025 Discontinued fluconazole 150 mg oral tablet (1 source) Azole Antifungal Start: 10-11-2024 End: 01-23-2025 take 1 tablet by mouth once daily Fluconazole 150 mg tablet Discontinued 150 MG PO Daily October 11, 2024 1:00am January 23, 2025 8:37am Saccharomyces boulardii (2 sources) Start: 12-19-2023 End: 04-14-2025 Saccharomyces boulardii 400 MG capsule Indications: Enteritis, noninfectious Saccharomyces boulardii 3 billion CFUs per capsule as directed 12/19/2023 04/14/2025 Discontinued Problems Active Problems Problem Classification Problem Date Documented Date Episodic/Chronic Chronic obstructive pulmonary disease and bronchiectasis (1 source) Bronchitis; Translations: [Bronchitis, not specified as acute or chronic] 12-07-2023 Episodic Digestive congenital anomalies (4 sources) Tongue tie; Translations: [Ankyloglossia] Onset: 11-29-19 Chronic Malaise and fatigue (3 sources) Fatigue; Translations: [Chronic fatigue, unspecified] Onset: 07-19-2012-01-2023 Chronic Menstrual disorders (2 sources) Irregular periods; Translations: [Irregular menstruation, unspecified] Onset: 07-19-2007-19-2023 Chronic Nonmalignant breast conditions (2 sources) Breast tenderness; Translations: [Mastodynia] 04-14-2025 Episodic Nutritional deficiencies (3 sources) Vitamin D deficiency; Translations: [Vitamin D deficiency, unspecified] Onset: 07-19-2012-01-2023 Chronic Other connective tissue disease (1 source) Abnormal posture; Translations: [ABNORMAL POSTURE] Onset: 02-24-20 Episodic Other disorders of stomach and duodenum (1 source) Indigestion; Translations: [Functional dyspepsia] 12-01-2023 Episodic Other female genital disorders (2 sources) Abnormal uterine bleeding; Translations: [Abnormal uterine and vaginal bleeding, unspecified] 04-10-2025 Chronic Other hereditary and degenerative nervous system conditions (3 sources) Restless legs; Translations: [Restless legs syndrome] Onset: 07-19-2012-01-2023 Chronic Other nervous system disorders (1 source) Other chronic pain; Translations: [OTHER CHRONIC PAIN] Onset: 02-23-20 Chronic Other nutritional; endocrine; and metabolic disorders (3 sources) Inborn error of metabolism; 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] Onset: 07-19-2012-01-2023 Chronic Other nutritional; endocrine; and metabolic disorders (2 sources) Disorder of sulfur-bearing amino acid metabolism; 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, unspecified] Onset: 07-19-2007-19-2023 Chronic Other screening for suspected conditions (not mental disorders or infectious disease) (2 sources) Patient encounter status; Translations: [Encounter for screening for malignant neoplasm of cervix] 04-14-2025 Episodic Prolapse of female genital organs (2 sources) Prolapse of female genital organs; Translations: [Female genital prolapse, unspecified] Onset: 07-19-2007-19-2023 Chronic Residual codes; unclassified (2 sources) Genetic mutation; Translations: [Genetic susceptibility to other disease] 12-01-2023 Episodic Residual codes; unclassified (1 source) Heterozygous methylenetetrahydrofolate reductase mutation; Translations: [Genetic susceptibility to other disease] 12-01-2023 Episodic Spondylosis; intervertebral disc disorders; other back problems (4 sources) Pain in thoracic spine; Translations: [PAIN IN THORACIC SPINE] Onset: 02-23-20 Episodic Past or Other Problems Problem Classification Problem Date Documented Date Episodic/Chronic Allergic reactions (2 sources) Allergic gastroenteritis; Translations: [Other allergic and dietetic gastroenteritis and colitis] Onset: 07-19-2023 07-19-2023 Episodic Benign neoplasm of uterus (2 sources) Intramural leiomyoma of uterus; Translations: [Intramural leiomyoma of uterus] Onset: 07-19-2023 07-19-2023 Episodic Cancer of cervix (3 sources) Low grade squamous intraepithelial lesion on cytologic smear of cervix (LGSIL); Translations: [Cervicovaginal cytology: Low grade squamous intraepithelial lesion] Onset: 07-15-2021 07-19-2023 Episodic Inflammation; infection of eye (except that caused by tuberculosis or sexually transmitteddisease) (3 sources) Internal hordeolum of left upper eyelid; Translations: [Hordeolum internum left upper eyelid] Onset: 07-19-2023 12-01-2023 Episodic Other connective tissue disease (3 sources) Fibromyalgia; Translations: [Fibromyalgia] Onset: 07-19-2023 12-01-2023 Episodic Other female genital disorders (2 sources) Enlarged uterus; Translations: [Hypertrophy of uterus] Onset: 07-19-2023 07-19-2023 Episodic Residual codes; unclassified (2 sources) Genetic predisposition; Translations: [Genetic susceptibility to other disease] Onset: 07-19-2023 07-19-2023 Episodic Results Test Name Value Interpretation Reference Range Facility Cholesterol in LDL Calc [Mas s/Vol]on 01-17-2025 Cholesterol in LDL [Mass/Vol] Cholesterol in LDL [Mass/volume] in Serum or Plasma by calculation [facility] Comment on above: <100 mg/dl [id number] 0-129 mg/dl NEAR OR ABOVE [id number] mg/dl BORDERLINE [id number] mg/dl HIGH>190 mg/dl VERY HIGH Cholesterol in VLDL Calc [Ma ss/Vol]on 01-17-2025 Cholesterol in VLDL [Mass/Vol] Cholesterol in VLDL [Mass/volume] in Serum or Plasma by calculation [facility] Estimated glomerular filtrat ion rate (GFR) non- Americanon 01-17-2025 GFR/1.73 sq M.predicted among non-blacks MDRD (S/P/Bld) [Vol rate/Area] Estimated glomerular filtration rate (GFR) non- >=60 mL/min/1.73m 2 [facility] Globulin Calc (S) [Mass/Vol] on 01-17-2025 Globulin (S) [Mass/Vol] Serum globulin measurement by calculation (mass/volume) [facility] Laboratory - Chemistry and C hemistry - challengeon 01-17-2025 Albumin [Mass/Vol] 3.6 g/dL 3.4-5.0 [facility] ALP [Catalytic activity/Vol] 79 U/L 46-116 [facility] ALT [Catalytic activity/Vol] 20 U/L 14-59 [facility] AST [Catalytic activity/Vol] 16 U/L 15-37 [facility] Bilirubin [Mass/Vol] 0.6 mg/dL 0.2-1.0 [facility] Calcium [Mass/Vol] 8.5 mg/dL 8.5-10.1 [facility] Chloride [Moles/Vol] 106 mmol/L 98-107 [facility] Cholesterol [Mass/Vol] 237 mg/dL High <=200 [facility] Cholesterol in HDL [Mass/Vol] 91 mg/dL High 40-60 [facility] Comment on above: > or =60 mg/dl - LOW CARDIOVASCULAR RISK<40 mg/dl - HIGH CARDIOVASCULAR RISK CO2 [Moles/Vol] 29.0 mmol/L 21.0-32.0 [facility] Creatinine [Mass/Vol] 0.63 mg/dL 0.55-1.02 [facility] GFR/1.73 sq M.predicted MDRD (S/P/Bld) [Vol rate/Area] mL/min/{1.73_m2} >=60 mL/min/1.73m 2 [facility] Glucose [Mass/Vol] 76 mg/dL 74-106 [facility] Potassium [Moles/Vol] 4.1 mmol/L 3.5-5.1 [facility] Protein [Mass/Vol] 6.8 g/dL 6.4-8.2 [facility] Sodium [Moles/Vol] 141 mmol/L 136-145 [facility] Triglyceride [Mass/Vol] 31 mg/dL <=150 [facility] Urea nitrogen [Mass/Vol] 21.0 mg/dL High 7.0-18.0 [facility] Urea nitrogen/Creatinine [Mass ratio] 33.3 mg/mg [facility] Serum or plasma albumin/glob ulin mass ratioon 01-17-2025 Albumin/Globulin [Mass ratio] Serum or plasma albumin/globulin mass ratio [facility] Serum or plasma anion gap de terminationon 01-17-2025 Anion gap [Moles/Vol] Serum or plasma an ion gap determination [facility] Serum or plasma total choles terol/high density lipoprotein (HDL) cholesterol mass dagoberto 01-17-2025 Cholesterol.total/Cho lesterol in HDL [Mass ratio] Serum or plasma total cholesterol/high density lipoprotein (HDL) cholesterol mass rat [facility] Comment on above: 3.3 - 4.4 LOW RISK4. 4 - 7.1 AVERAGE RISK7.1 - 11.0 MODERATE RISK>11.0 HIGH RISK Basophils Auto (Bld) [#/Vol] on 01-16-2025 Basophils (Bld) [#/Vol] Automated basophil count 0.0-0.1 [facility] Basophils/100 WBC Auto (Bld) on 01-16-2025 Basophils/100 WBC (Bld) Automated basophil % 0.2-2.0 [facility] Eosinophils/100 WBC Auto (Bl d)on 01-16-2025 Eosinophils/100 WBC (Bld) Automated eosinophil % 0.9-7.0 [facility] Erythrocyte distribution wid th Auto (RBC) [Ratio]on 01-16-2025 Erythrocyte distribution width (RBC) [Ratio] Erythrocyte distribution width [Ratio] by Automated count 11.0-15.0 [facility] Estimated glomerular filtrat ion rate (GFR) non- Americanon 01-16-2025 GFR/1.73 sq M.predicted among non-blacks MDRD (S/P/Bld) [Vol rate/Area] Estimated glomerular filtration rate (GFR) non- >=60 mL/min/1.73m 2 [facility] Hematocrit Auto (Bld) [Volum e fraction]on 01-16-2025 Hematocrit (Bld) [Volume fraction] Hematocrit [Volume Fraction] of Blood by Automated count 36.0-48.0 [facility] Hemoglobin [Mass/volume] in Bloodon 01-16-2025 Hemoglobin (Bld) [Mass/Vol] Hemoglobin [Mass/volume] in Blood 12.0-16.0 [facility] Laboratory - Chemistry and C hemistry - challengeon 01-16-2025 Calcium [Mass/Vol] 8.7 mg/dL 8.5-10.1 [facility] Chloride [Moles/Vol] 105 mmol/L 98-107 [facility] CO2 [Moles/Vol] 29.6 mmol/L 21.0-32.0 [facility] Creatinine [Mass/Vol] 0.66 mg/dL 0.55-1.02 [facility] Free T4 [Mass/Vol] 0.80 ng/dL 0.76-1.46 [facility] GFR/1.73 sq M.predicted MDRD (S/P/Bld) [Vol rate/Area] mL/min/{1.73_m2} >=60 mL/min/1.73m 2 [facility] Glucose [Mass/Vol] 82 mg/dL 74-106 [facility] Potassium [Moles/Vol] 3.8 mmol/L 3.5-5.1 [facility] Sodium [Moles/Vol] 141 mmol/L 136-145 [facility] TSH Qn 1.214 m[IU]/L 0.358-3.740 [facility] Urea nitrogen [Mass/Vol] 19.0 mg/dL High 7.0-18.0 [facility] Urea nitrogen/Creatinine [Mass ratio] 28.8 mg/mg [facility] Laboratory - Hematology and Cell countson 01-16-2025 Immature granulocytes/100 WBC (Bld) 0.2 % 0.0-0.5 [facility] Leukocytes [#/volume] correc carmella for nucleated erythrocytes in Blood by Automated counon 01-16-2025 WBC corrected for nucl RBC Auto (Bld) [#/Vol] Leukocytes [#/volume] corrected for nucleated erythrocytes in Blood by Automated coun 4.0-11.0 [facility] Lymphocytes Auto (Bld) [#/Vo l]on 01-16-2025 Lymphocytes (Bld) [#/Vol] Lymphocytes [#/volume] in Blood by Automated count 1.2-3.8 [facility] Lymphocytes/100 WBC Auto (Bl d)on 01-16-2025 Lymphocytes/100 WBC (Bld) Lymphocytes/100 leukocytes in Blood by Automated count 20.5-60.0 [facility] MCH Auto (RBC) [Entitic mass ]on 01-16-2025 MCH (RBC) [Entitic mass] MCH [Entitic mass] by Automated count 26.7-34.0 [facility] MCHC Auto (RBC) [Mass/Vol]on 01-16-2025 MCHC (RBC) [Mass/Vol] MCHC [Mass/volume] by Automated count 29.9-35.2 [facility] MCV Auto (RBC) [Entitic vol] on 01-16-2025 MCV (RBC) [Entitic vol] MCV [Entitic volume] by Automated count 81.0-99.0 [facility] Monocytes Auto (Bld) [#/Vol] on 01-16-2025 Monocytes (Bld) [#/Vol] Automated blood monocyte count 0.3-0.8 [facility] Monocytes/100 WBC Auto (Bld) on 01-16-2025 Monocytes/100 WBC (Bld) Automated monocyte % 1.7-12.0 [facility] Neutrophils Auto (Bld) [#/Vo l]on 01-16-2025 Neutrophils (Bld) [#/Vol] Neutrophils [#/volume] in Blood by Automated count 1.4-6.5 [facility] Neutrophils/100 WBC Auto (Bl d)on 01-16-2025 Neutrophils/100 WBC (Bld) Automated neutrophil % 43.0-75.0 [facility] No Panel Informationon 01-16 Eosinophils # (Auto) 0.1 10 3/uL 0.0-0.7 [facility] Immature Granulocyte # (Auto) 0.01 10 3/uL 0.00-0.03 [facility] Platelet mean volume Auto (B ld) [Entitic vol]on 01-16-2025 Platelet mean volume (Bld) [Entitic vol] Platelet mean volume [Entitic volume] in Blood by Automated count 9.5-13.5 [facility] Platelets Auto (Bld) [#/Vol] on 01-16-2025 Platelets (Bld) [#/Vol] Platelets [#/volume] in Blood by Automated count 150-450 [facility] RBC Auto (Bld) [#/Vol]on RBC (Bld) [#/Vol] Erythrocytes [#/volume] in Blood by Automated count Low 4.20-5.40 [facility] Serum or plasma anion gap de terminationon 01-16-2025 Anion gap [Moles/Vol] Serum or plasma an ion gap determination [facility] Pap IG,rfx Aptima HPV all pt hon 07-20-2021 . . Normal [facility] Comment on above: Performed By: #### P [id number] #### [facility] [address] [place] [address] Dr. Iris Estrella DIAGNOSIS: Comment Normal [facility] Comment on above: Result Comment: NEGA TIVE FOR INTRAEPITHELIAL LESION OR MALIGNANCY. Performed By: #### P [id number] #### [facility] [address] [address] [address] Iris Estrella Methodology: Comment [facility] Comment on above: Result Comment: This liquid based ThinPrep(R) pap test was screened with the use of an image guided system. Performed By: #### P [id number] #### [facility] [address] [place] [address] Dr. Iris Estrella Note: Comment Normal [facility] Comment on above: Result Comment: The Pap smear is a screening test designed to aid in the detection of premalignant and malignant conditions of the uterine cervix. It is not a diagnostic procedure and should not be used as the sole means of detecting cervical cancer. Both false-positive and false-negative reports do occur. . Performed By: #### P [id number] #### [facility] [address] [place] [address] Dr. Iris Estrella Performed by: Comment Normal [facility] Comment on above: Result Comment: Jazmín Jauregui, Crimping Machine Operator For Metal (ASCP) Performed By: #### P [id number] #### [facility] [address] [place] [address] Dr. Iris Estrella Reflex Criteria: Comment [facility] Comment on above: Result Comment: The HPV DNA reflex criteria were not met with this specimen result therefore, no HPV testing was performed. . Performed By: #### P [id number] #### [facility] [address] [place] [address] Dr. Iris Estrella Specimen adequacy: Comment Normal [facility] Comment on above: Result Comment: Sati sfactory for evaluation. Endocervical and/or squamous metaplastic cells (endocervical component) are present. Performed By: #### P [id number] #### [facility] [address] [place] [address] Dr. Iris Estrella Vital Signs Date Time Vital Sign Value Performing Clinician Facility 04-14-2025 09:48-0400 Body mass index (BMI) [Ratio] 24.75 kg/m2 Amna Hill MD Work Phone: [facility] 04-14-2025 09:48-0400 Body weight 71.67 kg Amna Hill MD Work Phone: [facility] 04-14-2025 09:48-0400 Diastolic blood pressure 62 mm[Hg] Amna Hill MD Work Phone: [facility] 04-14-2025 09:48-0400 Systolic blood pressure 126 mm[Hg] Amna Hill MD Work Phone: [facility] 01-23-2025 08:35-0400 Body height 167.64 cm [facility] 01-23-2025 08:35-0400 Body mass index (BMI) [Ratio] 25.3 kg/m2 [facility] 01-23-2025 08:35-0400 Body weight 71.21 kg [facility] 01-23-2025 08:35-0400 Diastolic blood pressure 74 mm[Hg] [facility] 01-23-2025 08:35-0400 Heart rate 66 /min [facility] 01-23-2025 08:35-0400 Systolic blood pressure 117 mm[Hg] [facility] 08-01-2023 09:45-0500 Body height 171.45 cm Jeny Regan Other [employer] Other 08-01-2023 09:45-0500 Body mass index (BMI) [Ratio] 24.78 kg/m2 Jeny Regan Other [employer] Other 08-01-2023 09:45-0500 Body weight 72.85 kg Jeny Regan Other [employer] Other 08-01-2023 09:45-0500 Diastolic blood pressure 72 mm[Hg] Jeny Regan Other [employer] Other 08-01-2023 09:45-0500 Systolic blood pressure 109 mm[Hg] Jney Regan Other [employer] Other Encounters Encounter Date Encounter Type Care Provider Facility Start: 04-14-2025 End: 04-14-2025 ambulatory AMNA HILL Not Available Start: 04-14-2025 End: 04-14-2025 Office outpatient visit 10 minutes Amna Hill MD Work Phone: [facility] Comment on above: Encounter for gyneco logical examination; Abnormal uterine bleeding (AUB); Breast tenderness; Encounter for gynecological examination without abnormal finding; Encounter for screening for cervical cancer Start: 04-14-2025 End: 04-14-2025 Patient encounter status Amna Hill MD Work Phone: [facility] Start: 01-23-2025 End: 01-23-2025 ambulatory [facility] Work Phone: Start: 01-23-2025 End: 01-23-2025 Patient encounter procedure [facility] Work Phone: Start: 01-17-2025 Non-patient / Non-visit [facility] Work Phone: Start: 01-16-2025 Non-patient / Non-visit [facility] Work Phone: Start: 01-15-2025 Patient encounter status [facility] Start: 11-29-2023 End: 11-30-2023 ambulatory JENY REGAN [facility] Start: 11-23-2023 End: 11-23-2023 Subsequent hospital visit by physician Psatora Ledesma [employer] [facility] Comment on above: Canceled (Patient Ca ncel > 24 HRS) Start: 11-08-2023 End: 11-09-2023 ambulatory JENY REGAN [facility] Start: 11-08-2023 End: 11-08-2023 Subsequent hospital visit by physician Psatora Ledesma [facility] [employer] Comment on above: Arrived Start: 10-30-2023 End: 10-31-2023 ambulatory JENY REGAN [facility] Start: 09-27-2023 End: 09-28-2023 ambulatory JENY REGAN [facility] Start: 09-13-2023 End: 09-14-2023 ambulatory JENY REGAN [facility] Start: 08-30-2023 End: 08-31-2023 ambulatory JENY REGAN [facility] Start: 08-01-2023 End: 08-01-2023 ambulatory Jeny Regan Other [employer] Other Start: 08-01-2023 Office outpatient vi sit 15 minutes Jeny Regan [facility] Start: 02-22-2022 End: 03-08-[address] JENY REGAN Facility:[facility] Start: 07-15-2021 Encounter for cervic al smear to confirm findings of recent normal smear following initial abnormal smear DR NANY NARAYANAN [facility] Start: 06-30-2021 End: 06-30-[address] NANY NARAYANAN Facility:[facility] Start: 06-30-2021 End: 06-30-2021 Encounter for cervical smear to confirm findings of recent normal smear following initial abnormal smear DR NANY NARAYANAN Facility:[facility] Procedures Date Procedure Procedure Detail Performing Clinician Start: 07-19-2023 H/O: surgery H/O bilateral salpingec lorri Hill MD Work Phone: Plan of Treatment Date Care Activity Detail Author Start: 04-30-2025 End: 04-30-2025 Patient encounter procedure 04/30/2025 1:10 PM EDT Office Visit [facility] [address] [place] [id number] Elpidio Cummings, DO [address] [place] [address] [facility] Start: 04-30-2025 End: 04-30-2025 Patient encounter procedure 04/30/2025 8:45 AM EDT Office Visit [facility] [address] [place] [address] Amna Hill MD [address] [place] [address] [facility] Start: 04-30-2025 End: 04-30-2025 Professional / ancillary services management 04/30/2025 8:30 AM EDT Ancillary Procedure [facility] [address] [place] [address] [facility] Start: 04-14-2025 End: 06-15-2026 DBT Breast - bilateral diagnostic Bilateral diagnostic mammogram with tomosynthesis Imaging Routine Breast tenderness Expected: 04/14/2025, Expires: 06/15/2026 [facility] Work Phone: Comment on above: Expected: 04/14/2025 , Expires: 06/15/2026 Start: 04-14-2025 End: 04-14-2026 PCOS Diagnostic Profile PCOS Diagnostic Profile Lab Routine Abnormal uterine bleeding (AUB) Expected: 04/14/2025 (Approximate), Expires: 04/14/2026 [facility] Comment on above: Expected: 04/14/2025 (Approximate), Expires: 04/14/2026 Start: 02-28-2024 ambulatory Ambulatory [facility] Start: 01-31-2024 ambulatory Ambulatory [facility] Start: 01-03-2024 ambulatory Ambulatory [facility] Start: 12-06-2023 ambulatory Ambulatory [facility] Start: 11-29-2023 End: 11-29-2023 Patient encounter procedure 11/29/2023 11:30 AM EST Appointment [facility] Speech Therapy [address] [place], [place] [id number] Pastora Ledesma, [facility] Speech Therapy Start: 04-25-2023 Influenza vaccination Flu vaccine (# 1) [facility] Start: 2021 Lipid panel Lipids [facility] Start: 2011 Screening for malign ant neoplasm of cervix [facility] Start: 2002 Screening for malign ant neoplasm of cervix Pap smear [facility] Start: 01-20-2000 DTaP/Tdap/Td vaccine (1 - Tdap) DTaP/Tdap/Td vaccine (1 - Tdap) [facility] Start: 1999 Hepatitis C screening Hepatitis C sc reen [facility] Start: 01-20-1996 HIV screening HIV screen [facility] Start: 1993 Depression Screen Depression Screen [facility] Start: 1982 Varicella vaccine (1 of 2 - 2-dose childhood series) Varicella vaccine (1 of 2 - 2-dose childhood series) [facility] Start: 1981 COVID-19 Vaccine (#1) COVID-19 Vacci ne (#1) [facility] Start: 1981 Hepatitis B vaccine (1 of 3 - 3-dose series) Hepatitis B vaccine (1 of 3 - 3-dose series) [facility] CBC panel - Blood by Automated count CBC Lab Routine Abnormal uterine bleeding (AUB) Ordered: 04/14/2025 [facility] Comment on above: Ordered: 04/14/2025 Ferritin [Mass/volum e] in Serum or Plasma Ferritin Lab Routine Abnormal uterine bleeding (AUB) Ordered: 04/14/2025 [facility] Comment on above: Ordered: 04/14/2025 IGP, APT HPV,RFX 16/18,45 IGP, APT HPV,RFX 16/18,45 Lab Routine Abnormal uterine bleeding (AUB) Encounter for gynecological examination without abnormal finding Encounter for screening for cervical cancer Ordered: 04/14/2025 [facility] Comment on above: Ordered: 04/14/2025 Iron and Iron bindin g capacity panel - Serum or Plasma Iron and TIBC Lab Routine Abnormal uterine bleeding (AUB) Ordered: 04/14/2025 [facility] Comment on above: Ordered: 04/14/2025 Progesterone Progesterone Lab Routine Abnormal uterine bleeding (AUB) Ordered: 04/14/2025 [facility] Comment on above: Ordered: 04/14/2025 Payers Date Payer Category Payer Medicaid [facility] [id number] 2022 Medicaid [id number] 1981 Unknown [id number] [id number] 1981 Unknown [id number] 2.16.840.1.273299.3.579.2.593 1981 Unknown [id number] 2.16.840.1.634514.3.579.2.173 1981 Unknown [id number] 2.16.840.1.193437.3.579.2.173 1981 Unknown [id number] 2.16.840.1.950091.3.579.2.173 1981 Unknown [id number] 2.16.840.1.946977.3.579.2.173 1981 Unknown [id number] 2.16.840.1.685047.3.579.2.173 1981 Unknown [id number] 2.16.840.1.518476.3.579.2.173 1981 Unknown [id number] 2.16.840.1.692170.3.579.2.173 1981 Unknown [id number] 2.16.840.1.797948.3.579.2.173 1981 Unknown [id number] 2.16.840.1.433552.3.579.2.173 1981 Unknown [id number] 2.16.840.1.410814.3.579.2.173 1981 Unknown [id number] 2.16.840.1.048493.3.579.2.173 1981 Unknown [id number] 2.16.840.1.540016.3.579.2.1259 1959 Unknown [id number] Unknown [place] [employer] [id number] Social History Date Type Detail Facility Unknown if ever smoked [facility] [employer] Other Start: 04-14-2025 Sex Assigned At [employer] Other Tobacco smoking status [facility] Tobacco [facility] consumption [facility] [employer] [facility] Start: 1980 Sex Assigned At Not on file [facility] Start: 07-23-2023 End: 01-23-2025 Tobacco smoking status [facility] Ex-smoker (finding) [facility] Start: 01-23-2025 Sex Female (finding) [facility] Start: 1980 Sex Assigned At Female [facility] History of tobacco use Current smoker [facility] History of tobacco use Cigarette Smoker [facility] Start: 07-23-2023 Tobacco use and exposure Smokeless tobacco non-user [facility] Start: 04-14-2025 Alcoholic beverage intake Ex-drinker (finding) [facility] Start: 04-14-2025 History of Social function [facility] NEGATED: Highlighted row [facility] History of Present illness Narrative 04-14-2025 Amna Hill MD - 04/14/2025 10:00 AM EDT Note Date & Type Note Facility 04-14-2025 History of Presen t illness Narrative Images from the original note were not included. Amna Hill MD Obstetrics and Gynecology Patient: Cliff Zhong [...] for infrequent periods, occurring only 3-4 times per year. In 2020, she underwent an ablation procedure for fibroids, avoiding a hysterectomy. A follow-up ultrasound at [facility] showed no evidence of fibroids. The patient [...] Hematological: Negative. Psychiatric/Behavioral: Negative. Allergies Allergen Reactions [place] [employer] Other Reaction(s): Unknown Milk-Related Compounds Other [...] to gross testing, coordination, and gait are normal or at baseline unless noted below. Physical Exam [...] in 2020, with a subsequent ultrasound at [facility] showing no fibroids. Plan: - Schedule pelvic ultrasound to evaluate for fibroids, polyps, or other structural abnormalities CBC TIBC ordered - Order blood work (to be [...] importance of more regular menstrual cycles (every 60-90 days) to reduce risk of endometrial hyperplasia Pt with multiple allergies including lactose ,corn oil and soy hampering hormonal treatment [place] is not covered by her insurance Pt with multiple allergies including corn oil,,soy and lactose Synd na due to lactose allergy Progesterone supp without corn oil or soy sent to [facility] with cornoil Assessment & Plan documented in this encounter [facility] History of Present illness Narrative 11-23-2023 Pastora Ledesma SLP - 11/23/2023 10:30 AM EST Note Date & Type Note Facility 11-23-2023 History of Present illness Narrative [facility] SPEECH THERAPY Cancel Note/ No Show Note Date: 11/22/2023 Patient Name: Cliff Zhong : 1980 (43 y.o.) Gender: female REASON FOR MISSED TREATMENT: [x]Cancelled due to illness. [] Therapist Cancelled Appointment []Cancelled due to other appointment []No Show / No call. Pt called with next scheduled appointment. [] Cancelled due to transportation conflict []Cancelled due to weather []Frequency of order changed []Patient on hold due to: []OTHER: Electronically signed by: Pastora Ledesma M.A., CCC-VP SECURITIES Date:11/22/2023 documented in this encounter [facility] History of Present illness Narrative 11-08-2023 Pastora Ledesma SLP - 11/08/2023 10:00 AM EST Note Date & Type Note Facility 11-08-2023 History of Present illness Narrative [facility] DAILY TREATMENT NOTE Date: 11/08/2023 Patient s Name: Cliff Zhong Date of : 1980 (43 y.o.) Gender: female [facility] #: [id number] Referring physician:Jeny Regan Diagnosis: Q38.1 Ankyloglossia INSURANCE Visit Information Onset Date: 82 [employer] Insurance Information: [place] Total # of Visits Approved: 30 Total # of Visits to Date: 4 Plan of Care/Recert ends 11/28/2023 PAIN [x]No []Yes Pain Rating (0-10 pain scale): 0 Location: N/A Pain Description: NA SUBJECTIVE Patient presents to clinic with self. SHORT TERM GOALS/ TREATMENT SESSION: Subjective report: Patient completed lingual tie release (10/26). Patient reports the following post-release: Continues to be unable to taste sweets/salty Lingual soreness Tightness on right side (started lifting so may be cause from that) Sleep improvement TMJ improvement Singing range improved Decreased throat soreness/tightness Eating has improved Goal 1: HEP implemented and carryover reported HEP to continue with the following exercises: Tongue to spot Lingual clicks as able Lingual slides with good jaw dissociation Lingual Palatal Suction Manual Floor of mouth stretch 6x/day 5 sec hold Lingual Protrusion Patient reported she has a follow up appointment with Dr. Vinson on 11/16. []Met [x]Partially met []Not met Goal 2: Patient will complete pre-release stretches/exercises with adequeate ROM, strength, and coordination in 3 consecutive sessions. Lingual clicks- improved pressure build up, reports pain following completion Lingual slides- improved ROM, no compensatory movements noted Lingual palatal suction- 2 minutes strong hold, good floor of mouth separation and increased ROM of mouth opening Tongue to spot- 30 second hold, good ROM of mouth opening Lingual protrusion- mild tremor, able to hold 30 seconds, tongue tip curling up Manual floor of mouth stretch completed by [employer] and patient. Reports minimal pain and increased ROM. []Met [x]Partially met []Not met [employer] GOALS/ TREATMENT SESSION: Goal 1: Demonstrate functional oral motor skills with reported oral prep phase of swallow Goal progressing. See STG data []Met [x]Partially met []Not met EDUCATION/HOME EXERCISE PROGRAM (HEP) New Education/HEP provided to patient/family/caregiver: see HEP goal Method of Education: [x]Discussion []Demonstration [] Written []Other Evaluation of Patient s Response to Education: [x]Patient and or caregiver verbalized understanding []Patient and or Caregiver Demonstrated without assistance []Patient and or Caregiver Demonstrated with assistance []Needs additional instruction to demonstrate understanding of education ASSESSMENT Patient tolerated today s treatment session: [x] Good [] Fair [] Poor Limitations/difficulties with treatment session due to: []Pain []Fatigue []Other medical complications []Other Comments: PLAN [x]Continue with current plan of care []Medical Hold []I Hold per patient request [] Change Treatment plan: [] Insurance hold __ Other Minutes Tracking: [employer] Individual Minutes Time In: 1000 Time Out: 1030 Minutes: 30 Charges: 1 Electronically signed by: Pastora VANESSA Date:11/08/2023 documented in this encounter [facility] Evaluation note 08-01-2023 Note Date & Type Note Facility 08-01-2023 Evaluation note Encounter Date Diagnosis Assessment Notes Jul, Tongue tie (ICD-10 - Q38.1) Order printed and given to patient for speech therapy. She wanted it faxed to [facility] in [place]. She will call if further treatment is needed. [employer] Other Evaluation note Note Date & Type Note Facility Evaluation note No assessment information availa [facility] Work Phone: Evaluation note Note Date & Type Note Facility Evaluation note Diagnosis Encounter for gynecological examination Abnormal uterine bleeding (AUB) Breast tenderness Mastodynia Encounter for gynecological examination without abnormal finding Encounter for screening for cervical cancer documented in this encounter [facility] History general Narrative - Reported Note Date & Type Note Facility History general Narrative - Reported Type Surgical History Cervical fusion 2016 Surgical History Appendectomy 2003 [employer] Other Summary Purpose Family History No Family History Records Found Relationship Condition Age at Onset Recorded Date/T daniel father Unknown Heart disease Unknown Hypertension Unknown Diabetes mellitus Unknown Advance Directives No Advanced Directives Records Found Advance Directive Response Recorded Date/ Time Advance Directives No November 30 10:28am Chief Complaint and Reason for Visit Chief Complaint Admit Date Wellness January 23, 2025 8:32am Additional Source Comments INFORMATION SOURCE (unrecogn ized section and content) DATE CREATED AUTHOR 03/31/2022 [facility] DATE CREATED AUTHOR AUTHOR'S ORGANIZ ATION 11/30/2023 [facility] DATE CREATED AUTHOR AUTHOR'S ORGANIZ ATION 04/15/2025 [facility] dical Specialists EPIC REASON FOR VISIT (unrecogniz ed section and content) Reason Comments Vaginal Bleeding Care Teams (unrecognized sec tion and content) Opener Tender Relationship Specialty Start Date End Date Jeny Regan MD [address] [place] [address] PCP - General Family Medicine 08/01/23 Team Status: Active Member Role Status Dates Jeny Regan MD Primary Care Provider Active Team Status: Active Member Role Status Dates Jeny Regan MD Primary Care Provide r, Attending Provider Active Start: January 16, 2025 Team Status: Active Member Role Status Dates Jeny Regan MD Primary Care Provide r, Attending Provider Active Start: January 17, 2025 Team Status: Inactive Member Role Status Dates Jeny Regan MD Primary Care Provide r, Attending Provider Active Start: January 23, 2025 End: January 23, 2025 Opener Tender Relationship Specialty Start Date End Date Jeny Regan MD [address] [place] [id number] PCP - General Family Medicine 05/30/23 Goals (unrecognized section and content) Goals may be documented in a n alternate section FOR RECORDS PERTAINING TO PATIENTS WHO ARE OR HAVE BEEN ENROLLED IN A CHEMICAL DEPENDENCY/SUBSTANCEABUSE PROGRAM, SOME INFORMATION MAY BE OMITTED. This clinical summary was aggregated from multiple sources. Caution should be exercised in using it in the provision of clinical care. This summary normalizes information from multiple sources, and as a consequence, information in this document may materially change the coding, format and clinical context of patient data. In addition, data may be omitted in some cases. CLINICAL DECISIONS SHOULD BE BASED ON THE PRIMARY CLINICAL RECORDS. [facility]. provides no warranty or guarantee of the accuracy or completeness of information in this document.
--- OUTSIDE RECORDS SUMMARY | 2025-04-20 10:43 | XMS_ITS | Encounter Summary ---
Author Organization [facility] Address [address] [place] [address] Care Team Providers Care Filling Mixer Name Role Phone Jeny Regan MD Primary Care Provider [phone] Encounter Details Date Type Department Care Team (Late st Contact Info) Description 04/15/2025 Telephone [facility] [address] [facility] [address] [place] [phone] Abel Mccrary MD [address] [facility] [address] [place] [address] Social History Tobacco Use Types Packs/Day Years [...] encounter Miscellaneous Notes * Telephone Encounter - Aniya Anderson - 04/15/2025 3:52 PM EDT Per PPJ, patient to take micronor until she gets progesterone vaginal suppositories, informed patient of this and she voiced understanding, she was concerned she needed to take it for the full 28 days, apologized for the confusion, patient voiced appreciation * Telephone Encounter - Aniya Anderson - 04/15/2025 3:45 PM EDT [facility] Hello, is [facility] in [place], [place] calling. We are trying to clarify a script sent by Nicole Mccrary for a patient NA Zhong date of for 2,781. We just need to know whether the progesterone capsules should be I R or E4M, if you can give us a call back with that answerat [phone]. Thank you. Spoke with pharmacy- called in Progesterone 200 mg vaginal suppositories Insert 1 suppository vaginally at bedtime for 14 days (on days 14-28 of cycle) documented in this encounter Plan of Treatment Upcoming Encounters Date Type Department Care Team (Late st Contact Info) Description 04/25/2025 9:30 AM EDT Ancillary Procedure [facility] [address] [place] [address] 04/25/2025 10:00 AM EDT Ancillary Procedure [facility] [place] [facility] [address] [place] [address] 04/25/2025 10:30 AM EDT Ancillary Procedure [facility] [address] [place] [address] 04/30/2025 8:30 AM EDT Ancillary Procedure [facility] [address] [place] [address] 04/30/2025 8:45 AM EDT Office Visit [facility] [place] [facility] [address] [place] [address] Abel Mccrary MD [address] [place] [address] documented as of this encounter Visit Diagnoses Not on filedocumented in this encounter Care Teams Filling Mixer Relationship Specialty Start Date End Date Jeny Regan MD [address] [place] [address] PCP - General Family Medicine 05/30/23 documented as of this encounter
--- OUTSIDE RECORDS SUMMARY | 2025-04-20 10:43 | XMS_ITS | Encounter Summary ---
Author Organization [facility] Address [address] [place] [address] Care Team Providers Care Cold Patcher Name Role Phone Jeny Regan MD Primary Care Provider [phone] Encounter Details Date Type Department Care Team (Late st Contact Info) Description 04/15/2025 Orders Only [facility] [address] [place] [address] Abel Mccrary MD [address] [place] [address] Breast tenderness; Fullness of breast Social History Tobacco Use Types Packs/Day Years [...] Imaging [address] [place] [address] 04/25/2025 10:00 AM EDT Ancillary Procedure [facility] [address] [place] [address] 04/25/2025 10:30 AM EDT Ancillary Procedure [facility] [place] [facility] [address] [place] [address] 04/30/2025 8:30 AM EDT Ancillary Procedure [facility] [address] [place] [address] 04/30/2025 8:45 AM EDT Office Visit [facility] [address] [place] [phone] Abel Mccrary MD [address] [facility] [address] [place] [address] Scheduled Orders Name Type Priority Associated Diagnoses Orde r Schedule Left breast US limited Imaging Routine Breast tenderness Fullness of breast Expected: 04/15/2025, Expires: 06/16/2026 Right breast US limited Imaging Routine Breast tenderness Fullness of breast Expected: 04/15/2025, Expires: 06/16/2026 documented as of this encounter Visit Diagnoses Diagnosis Breast tenderness Mastodynia Fullness of breast documented in this encounter Care Teams Cold Patcher Relationship Specialty Start Date End Date Jeny Regan MD [address] [facility] [place] [address] PCP - General Family Medicine 05/30/23 documented as of this encounter
--- OUTSIDE RECORDS SUMMARY | 2025-04-20 10:43 | XMS_ITS | Encounter Summary ---
Author Organization [facility] Address [address] [place] [address] Care Team Providers Care Beef Specialist Name Role Phone Jeny Regan MD Primary Care Provider [phone] Encounter Details Date Type Department Care Team (Latest Contact Info) Description 04/14/2025 Travel Social History Tobacco Use Types Packs/Day Years [...] 04/25/2025 9:30 AM EDT Ancillary Procedure [facility] [address] [place] [address] 04/25/2025 10:00 AM EDT Ancillary Procedure [facility] [address] [place] [address] 04/25/2025 10:30 AM EDT Ancillary Procedure [facility] [address] [place] [address] 04/30/2025 8:30 AM EDT Ancillary Procedure [facility] [address] [place] [address] 04/30/2025 8:45 AM EDT Office Visit [facility] [facility] [address] [place] [address] Abel Mccrary MD [address] [facility] [address] [place] [address] documented as of this encounter Visit Diagnoses Not on filedocumented in this encounter Care Teams Beef Specialist Relationship Specialty Start Date End Date Jeny Regan MD [address] [place] [address] PCP - General Family Medicine 05/30/23 documented as of this encounter
--- OUTSIDE RECORDS SUMMARY | 2025-04-20 10:43 | XMS_ITS | Patient Health Record ---
Author Organization [facility] es Address [address] [place] [address] Care Team Providers Care Industrial Radiographer Name Role Phone Queenie Suarez Primary Care Provider Dr. Ayo Bradley Unavailable [phone] Yonatan Hinton Unavailable [phone] Pauline Bernard Unavailable [phone] Haris Mensah Unavailable [phone] Mikaela Cedillo Unavailable [phone] Cristin Boudreaux Unavailable [phone] Reason For Referral No Information Encounters Encounter Location Date Provider Diagnosis [facility] [address] [place] [address] 06/12/2024 Pauline Bernard Acute gingivitis, plaque induced K05.00 [facility] [address] [place] [address] 02/12/2025 Pauline Bernard Acute gingivitis, plaque induced K05.00 [facility] [address] [place] [address] 06/13/2024 Ayo Bradley Dental caries on pit and fissure surface penetrating into dentin K02.52 [facility] [address] [place] [address] 07/03/2024 Yonatan Hinton Dental caries on pit and fissure surface penetrating into dentin K02.52 [facility] [address] [place] [address] 10/02/2024 Cristin Boudreaux Dental caries on pit and fissure surface penetrating into dentin K02.52 [facility] [address] [place] [address] 10/08/2024 Ayo Mirna Dental caries on pit and fissure surface penetrating into dentin K02.52 [facility] [address] [place] [address] 10/16/2024 Ayo Mirna Dental caries on pit and fissure surface penetrating into dentin K02.52 [address] [place] [address] 05/02/2024 Yonatan Reynatiffanie Dental caries on pit and fissure surface penetrating into dentin K02.52 ; Encounter for dental examination and cleaning with abnormal findings Z01.21 and Other dental procedure status Z98.818 Assessments Encounter Date Diagnosis (ICD Code) Assessment Notes Treatment Notes Treatment Clinical Notes Section Notes 06/13/2024 Dental caries on pit and fissure [...] Acute gingivitis, plaque induced (ICD-10 - K05.00) 10/02/2024 Dental caries on pit and fissure surface penetrating into dentin (ICD-10 - K02.52) 06/12/2024 Acute gingivitis, plaque induced (ICD-10 - K05.00) 05/02/2024 Dental caries on pit and fissure surface penetrating into dentin (ICD-10 - K02.52) 05/02/2024 Encounter for dental examination and cleaning with abnormal findings (ICD-10 - Z01.21) 05/02/2024 Other dental procedure status (ICD-10 - Z98.818) Plan Of Treatment Next Appt Details Provider Name:Pauline Bernard , 10/08/2025 01:00:00 PM, [address], [place], [address], Insurance Providers Payer Name Payer Address Payer Phone Subscriber Number Group Number Insured Name Patient Relationship to Insured Coverage Start Date Coverage End Date Dental [employer] DQ Terminate d 24 [address] [place] [address] [id number] LALITA SABA Self - patient is the insured 4 4 D[employer] [place] [facility] [address] [place] [address] [id number] LALITA SABA Self - patient is the insured 4 [employer] [place] MEDICAID [address] [address] [place] [address] [id number] LALITA SABA Self - patient is the insured 5 Dental [employer] DQ Terminate d 24 [address] [place] [address] [id number] LALITA SABA Self - patient is the insured 5 5 Dental Wrap [facility] Barber BCBS Termed 4 [address] [place] [address] [phone] [id number] LALITA SABA Self - patient is the insured 5 5
--- NOTE | 2025-04-20 11:02 | ED_ITS ---
HPI HPI - General Adult General Chief complaint: Urogenital-Female Stated complaint: HEAVY MENSTRUAL BLEEDING Time Seen by Provider: 04/20/25 10:40 Source: patient Mode of arrival: walk-in History of Present Illness HPI narrative: 45-year-old female presents for heavy vaginal bleeding which she has had for 3 weeks. A week ago she saw continuous mining machine company miner who put her on progesterone. She started passing some clots so she came in here to be evaluated. No syncope or fever. She does not complain of abdominal pain. This has never happened to her previously. Related Data Home Medications ?Medication ?Instructions ?Recorded ?Confirmed progesterone micronized (bulk) 100 1 ea miscellaneous QPM 04/20/25 04/20/25 % powder Allergies Allergy/AdvReac Type Severity Reaction Status Date / Time shellfish derived Allergy Severe Anaphylaxis Verified 04/20/25 10:46 Review of Systems ROS Narrative A ten point review of systems is negative except as noted above. PFSH PFSH Social History Little interest or pleasure in doing things: not at all Feeling down, depressed, or hopeless: not at all Exam Narrative Exam Narrative: Nurses note and vital signs reviewed and patient is not hypoxic. General: The patient appears well and in no apparent distress. Patient is resting comfortably on cart. Skin: Warm, dry, no pallor noted. There is no rash noted. Head: Normocephalic, atraumatic Eye: Normal conjunctiva, no drainage Ears, Nose, Mouth, and Throat: oral mucosa is moist. Nares patent. Cardiovascular: Regular Rate and Rhythm Respiratory: Patient is in no distress, no accessory muscle use, lungs are clear to auscultation, no wheezing, rales or rhonchi Back: non-tender GI: Soft and nontender Musculoskeletal: The patient has no evidence of calf tenderness, no pitting edema, symmetrical pulses noted bilaterally Neurological: A&O, normal speech Psychiatric: Cooperative Constitutional Vital Signs, click to edit/add: Last Vital Signs Temp 98.3 F 04/20/25 10:40 Pulse 98 H 04/20/25 10:40 Resp 20 04/20/25 10:40 BP 128/93 H 04/20/25 10:40 Pulse Ox 98 04/20/25 10:40 O2 Del Method Room Air 04/20/25 10:40 Course Vital Signs Vital signs: Vital Signs Temperature 98.3 F 04/20/25 10:40 Pulse Rate 98 H 04/20/25 10:40 Respiratory Rate 20 04/20/25 10:40 Blood Pressure 128/93 H 04/20/25 10:40 Pulse Oximetry 98 04/20/25 10:40 Oxygen Delivery Method Room Air 04/20/25 10:40 Temperature 98.3 F 04/20/25 10:40 Pulse Rate 98 H 04/20/25 10:40 Respiratory Rate 20 04/20/25 10:40 Blood Pressure 128/93 H 04/20/25 10:40 Pulse Oximetry 98 04/20/25 10:40 Oxygen Delivery Method Room Air 04/20/25 10:40 Medical Decision Making MDM Narrative Medical decision making narrative: Hemoglobin is 12.1. Ultrasound shows a very small fibroid, 1.2 cm. This is not likely the cause of her bleeding. She will follow-up with her continuous mining machine company miner. Treatment diagnosis and follow-up were discussed with the patient. Differential Diagnosis Differential Diagnosis: Dysfunctional uterine bleeding, anemia, uterine fibroid Lab Data Lab results reviewed: Yes I reviewed the patient's lab results Labs: Lab Results 04/20/25 Range/Units 11:05 WBC 6.1 (4.0-11.0) 10^3/uL RBC 3.88 L (4.20-5.40) 10^6/uL Hgb 12.1 (12.0-16.0) g/dL Hct 35.8 L (36.0-48.0) % MCV 92.3 (81.0-99.0) fL MCH 31.2 (26.7-34.0) pg MCHC 33.8 (29.9-35.2) g/dL RDW 14.1 (11.0-15.0) % Plt Count 254 (150-450) 10^3/uL MPV 11.4 (9.5-13.5) fL Neut % (Auto) 58.4 (43.0-75.0) % Lymph % (Auto) 32.6 (20.5-60.0) % [place] % (Auto) 6.7 (1.7-12.0) % Eos % (Auto) 1.3 (0.9-7.0) % Baso % (Auto) 0.8 (0.2-2.0) % Neut # (Auto) 3.6 (1.4-6.5) 10^3/uL Lymph # (Auto) 2.0 (1.2-3.8) 10^3/uL [place] # (Auto) 0.4 (0.3-0.8) 10^3/uL Eos # (Auto) 0.1 (0.0-0.7) 10^3/uL Baso # (Auto) 0.1 (0.0-0.1) 10^3/uL Abs Immat Gran (auto) 0.01 (0.00-0.03) 10^3/uL Imm/Tot Granulo (auto) 0.2 (0.0-0.5) % Sodium 140 (136-145) mmol/L Potassium 3.9 (3.5-5.1) mmol/L Chloride 104 (98-107) mmol/L Carbon Dioxide 28.7 (21.0-32.0) mmol/L Anion Gap 11.2 BUN 20.0 H (7.0-18.0) mg/dL Creatinine 0.58 (0.55-1.02) mg/dL Est GFR ( Amer) >60 (>=60 mL/min/1.73m^2) Est GFR (Non-Af Amer) >60 (>=60 mL/min/1.73m^2) BUN/Creatinine Ratio 34.5 Glucose 80 (74-106) mg/dL Calcium 8.4 L (8.5-10.1) mg/dL Serum HCG, Qual Negative (NEGATIVE) Imaging Data Pelvic ultrasound: Radiologist's impression: ITS Impressions Transvaginal US 04/20/25 11:31 Impression: Fibroid uterus. Normal endometrium and ovaries. No evidence of ovarian torsion. Impression dictated by: Ayo Landaverde Jr., D.O. 04/20/2025 12:49 PM [facility]ictation [facility] Electron[facility] authenticated by: [id number] Y Date: 04/20/2025 12:49 Discharge Plan Discharge Chief Complaint: Urogenital-Female Clinical Impression: DUB (dysfunctional uterine bleeding) Patient Disposition: Home, Self-Care Time of Disposition Decision: 13:19 Condition: Good Mode of Transportation: Private Vehicle Prescriptions / Home Meds: No Action progesterone micronized (bulk) 100 % powder 1 ea MISCELLANEOUS QPM Print Language: Dutch Instructions: Abnormal (Dysfunctional) Uterine Bleeding (ED) Additional Instructions: Follow-up with your continuous mining machine company miner Referrals: Jeny Regan MD [Primary Care Provider, Family Practice] - 1 week
[2025-04-20 11:18] LABS: Hematocrit 35.8 % (36.0-48.0); Hemoglobin 12.1 g/dL (12.0-16.0); Immature Granulocytes Abs Auto 0.01 10^3/uL (0.00-0.03); Immature Granulocytes Pct Auto 0.2 % (0.0-0.5); Lymphocytes Absolute Auto 2.0 10^3/uL (1.2-3.8); Mean Corpuscular HGB Conc 33.8 g/dL (29.9-35.2); Mean Corpuscular Hemoglobin 31.2 pg (26.7-34.0); Mean Corpuscular Volume 92.3 fL (81.0-99.0); Platelet Count 254 10^3/uL (150-450); Red Blood Count 3.88 10^6/uL (4.20-5.40); White Blood Count 6.1 10^3/uL (4.0-11.0)
[2025-04-20 11:27] LABS: Anion Gap 11.2; Blood Urea Nitrogen 20.0 mg/dL (7.0-18.0); Calcium 8.4 mg/dL (8.5-10.1); Carbon Dioxide 28.7 mmol/L (21.0-32.0); Chloride 104 mmol/L (98-107); Estimated GFR (African America >60 (>=60 mL/min/1.73m^2); Estimated GFR (Non-African Ame >60 (>=60 mL/min/1.73m^2); Glucose 80 mg/dL (74-106); Potassium 3.9 mmol/L (3.5-5.1); Sodium 140 mmol/L (136-145)
--- NOTE | 2025-04-20 11:31 | US_ITS ---
[address] [address] Patient Name: LALITA SABA MRN: [id number] date: 1980 Sex: F Assigned Patient Location: ER Current Patient Location: ER Accession/Order Number: [id number] Exam Date: 04/20/2025 12:47 Report Date: 04/20/2025 12:49 At the request of: GABO SALAZAR MD Procedure: US pelvis transvaginal Pelvic ultrasound. Reason for exam: Heavy vaginal bleeding for 3 weeks. Comparison: none Technique: Transvaginal imaging of the uterus and ovaries was also obtained. Additional spectral Doppler analysis of the ovaries was also obtained. Findings: Uterus measures 9.4 x 6.0 x 4.9 cm. A 1.2 cm fibroid is seen. Endometrium measures 12.9 mm without focal abnormality. Right ovary measures 2.2 x 1.9 x 1.2 cm. Left ovary measures 2.4 x 1.9 x 1.7 cm. Normal arterial and venous Doppler waveforms. No adnexal mass. Trace free fluid. US/US pelvis transvaginal Impression: Fibroid uterus. Normal endometrium and ovaries. No evidence of ovarian torsion. Impression dictated by: Ayo Landaverde Jr., D.O. 04/20/2025 12:49 PM Dictation Location: [place] [address] Electronically authenticated by: [id number] Y Date: 04/20/2025 12:49
== END 2025-04-20 13:41 | disposition home or self-care (01) ==
PROVIDERS: Emergency Provider Emergency Medicine; PCP Family Medicine
DX: N93.8 Other specified abnormal uterine and vaginal bleeding (principal); D25.9 Leiomyoma of uterus, unspecified
CPT/HCPCS: 36415; 76830; 80048; 84703; 85025; 99284

== ENCOUNTER 2025-06-16 15:50 | Outpatient (OUT) | payer MEDICAID, SELFPAY ==
--- OUTSIDE RECORDS SUMMARY | 2025-01-10 07:50 | XMS_ITS ---
Author Organization [facility] Address [address] [place] [address] Care Team Providers Care Greenhouse Assistant Name Role Phone Queenie Suarez Primary Care Provider Dr. Ayo Bradley [facility] [phone] REASON FOR VISIT FILLING Encounters Encounter Location Date Provider Diagnosis [facility] [address] [place] [address] 01/10/2025 Ayo Bradley Plan Of Treatment Next Appt Details Provider Name:Pauline Bernard , 10/08/2025 01:00:00 PM, [address], [place], [address], Progress Notes * LALITA SABA TDOB:1980 (45 yo F)Acc No.[id number]:01/10/2025 Patient: LALITA SHERMAN Provider: Laney Bradley DDS :1980 A ge:44 Y S ex:Female Date:01/10/2025 Address:[address] [place], [place] [id number] Pcp:Queenie Delgado Subjective: * Chief Complaints: * 1 . FILLING. * Medical History: Objective: * Vitals: Assessment: Plan: * Treatment: * Images: * Electronic signature of Dr. Ayo Bradley , DMD on 06/16/2025 at 03:53 PM EDT Sign off status: Pending * Provider: Laney Bradley DDS Date: 0 01/10/2025 Generated for Refugio jaimes/Justin/Le on: 0 06/16/2025 03:53 PM EDT
--- OUTSIDE RECORDS SUMMARY | 2025-06-16 15:53 | XMS_ITS | Patient Health Record ---
Author Organization [facility] es Address [address] [place] [address] Care Team Providers Care Bakery Demonstrator Name Role Phone Queenie Suarez Primary Care Provider Dr. Ayo Bradley Unavailable [phone] Yonatan Hinton Unavailable [phone] Pauline Bernard Unavailable [phone] Haris Mensah Unavailable [phone] Cristin Boudreaux Unavailable [phone] Reason For Referral No Information Encounters Encounter Location Date Provider Diagnosis [facility] [address] [place] [address] 02/12/2025 Pauline Bernard Acute gingivitis, plaque induced K05.00 [facility] [address] [place] [address] 07/03/2024 Yonatan Hinton Dental caries on pit and fissure surface penetrating into dentin K02.52 [facility] [address] [place] [address] 10/02/2024 Cristin Boudreaux Dental caries on pit and fissure surface penetrating into dentin K02.52 [facility] [address] [place] [address] 10/08/2024 Ayo Bradley Dental caries on pit and fissure surface penetrating into dentin K02.52 [facility] [address] [place] [address] 10/16/2024 Ayo Bradley Dental caries on pit and fissure surface penetrating into dentin K02.52 Assessments Encounter Date Diagnosis (ICD Code) Assessment Notes Treatment Notes Treatment Clinical Notes Section Notes 07/03/2024 Dental caries on pit and fissure [...] Acute gingivitis, plaque induced (ICD-10 - K05.00) Plan Of Treatment Next Appt Details Provider Name:Pauline Bernard , 10/08/2025 01:00:00 PM, [address], [place], [address], Insurance Providers Payer Name Payer Address Payer Phone Subscriber Number Group Number Insured Name Patient Relationship to Insured Coverage Start Date Coverage End Date Dental [place] DQ Terminate d 24 [address] [facility] [address] [id number] LALITA SABA Self - patient is the insured 4 [address] [facility] [address] [place] [address] [phone] [id number] LALITA SABA Self - patient is the insured 4 Dental [place] Medicaid [address] [address] [place] [address] [id number] LALITA SABA Self - patient is the insured 5 Dental [place] DQ Terminate d 24 [address] [place] [address] [id number] LALITA SABA Self - patient is the insured 5 5 Dental Wrap MERGED WITH [facility] [place] BCBS Termed 4 [address] [place] [address] [id number] LALITA SABA Self - patient is the insured 5 5
--- OUTSIDE RECORDS SUMMARY | 2025-06-16 15:53 | XMS_ITS | Encounter Summary ---
Author Organization [facility] Address [address] [place] [address] Care Team Providers Care Ecommerce Analyst Name Role Phone Jeny Regan MD Primary Care Provider [phone] Encounter Details Date Type Department Care Team ([facility] st Contact Info) Description 04/18/2025 Results [facility] [address] [facility] [address] [place] [address] Abel Mccrary MD [address] [facility] [address] [place] [address] IGP, APT HPV,RFX 16/18,45 Social History Tobacco Use Types Packs/Day Years [...] as of this encounter Plan of Treatment Not on file documented as of this encounter Visit Diagnoses Not on filedocumented in this encounter Care Teams Ecommerce Analyst Relationship Specialty Start Date End Date Jeny Regan MD [address] [facility] [place] [address] PCP - General Family Medicine 05/30/23 documented as of this encounter
--- OUTSIDE RECORDS SUMMARY | 2025-06-16 15:53 | XMS_ITS | Clinical Summary ---
Author Organization [facility] Address [address] [place] [address] Care Team Providers Care Advertising Analyst Name Role Phone Abel Mccrary MD Unavailable [phone] Allergies Active Allergy Reactions Criticality Noted Date Comments [place] Swelling 05/17/2019 Lactase Swelling 05/17/2019 Shellfish Derived Itching 05/17/2019 Soy Swelling 05/17/2019 Wheat Swelling 05/17/2019 Medications OTC PRODUCT CBD OIL Active EPINEPHrine (AUVI-Q) 0.3 mg/0.3 mL auto-injector Inject 0.3 mL intramuscularly as needed. 2 Each 1 06/27/20 19 Active Active Problems Problem Noted Date Diagnosed Date Cervical polyp 05/28/2019 Abnormal uterine bleeding 05/28/2019 Family History Medical History Relation Comments Allergies Mother Relation Status Comments Mother Social History Tobacco Use Types Packs/Day Years Used Date Smoking Tobacco: Former Smokeless Tobacco: Never Alcohol Use Standard Drinks/Week Comments Never 0 (1 standard drink = 0.6 oz pur e alcohol) AUDIT-C Answer Date Recorded Q1: How often do you have a drink containing alc ohol? Never 05/17/2019 Average Number of Drinks Not on file 019 Frequency of Binge Drinking Not on file 04/26 Area Deprivation Index Answer Date Gerard rded National Score (1-100), lower number is lower ri sk Not on file 09/01/2020 State Score (1-10), lower number is lower risk N ot on file 09/01/2020 Data from: https://www.neighborhoodatlas.medicine.[facility].edu/. Last address used for calculation Not on file 09/01/2020 Comments No Sex and Gender Information Value Date Recorded Sex Assigned at Not on file Legal Sex Female 12:52 PM EDT Gender Identity Not on file Sexual Orientation Not on file Last Filed Vital Signs Vital Sign Reading Time Taken Comments Blood Pressure 110/60 06/27/2019 12:54 PM EDT Pulse 72 06/27/2019 12:54 PM EDT Temperature - - Respiratory Rate 16 06/27/2019 9:11 AM EDT Oxygen Saturation 100% 06/27/2019 9:11 AM EDT Inhaled Oxygen Concentration - - Weight 62.5 kg (137 lb 11.2 oz) 06/27/2019 9:11 AM EDT Height 168.9 cm (5' 6.5 ) 06/27/2019 9:11 AM EDT Body Mass Index 21.89 06/27/2019 9:11 AM EDT Plan of Treatment Health Maintenance Due Date Last Done Comments Anxiety Screening 1999 Depression Screening 1999 HIV Screening 1999 Hepatitis C Screening 1999 DTaP,Tdap,Td Vaccine (1 - Tdap) 01/20/2000 Hepatitis B Vaccine (1 of 3 - 19+ 3-dose series) 01/20/2000 Cervical Cancer Screening 2002 HPV Vaccine (1 - 3-dose SCDM series) 01/20/2008 Influenza Vaccine (#1) 2025 Mammogram Screening 05/09/2026 05/09/2025, Insurance [address] [place] [address] [employer] [place] Care Teams Advertising Analyst Relationship Specialty Start Date End Date Abel Mccrary MD [address] [place] [address] Referring Human Resource Management Instructor 05/16/25
--- OUTSIDE RECORDS SUMMARY | 2025-06-16 15:53 | XMS_ITS | Encounter Summary ---
Author Organization [facility] Address [address] [place] [address] Care Team Providers Care Case Manager Specialist Name Role Phone Jeny Regan MD Primary Care Provider [phone] Encounter Details Date Type Department Care Team (Latest Contact Info) Description 05/12/2025 Results [facility] [address] [facility] [address] [place] [address] Abel Mccrary MD [address] [facility] [address] [place] [address] Bilateral screening mammogram with tomosynthesis Social History Tobacco Use Types Packs/Day Years [...] on filedocumented in this encounter Care Teams Case Manager Specialist Relationship Specialty Start Date End Date Jeny Regan MD [address] [facility] [place] [address] PCP - General Family Medicine 05/30/23 documented as of this encounter
--- OUTSIDE RECORDS SUMMARY | 2025-06-16 15:53 | XMS_ITS | Clinical Summary ---
Author Organization [facility] Healthcare Address [address] [place] [address] Care Team Providers Care Dining Room Hostess Name Role Phone Jeny Regan MD Primary Care Provider [phone] Allergies Active Allergy Reactions Criticality Noted Date Comments [place] Oil 07/19/2023 Other Reaction(s): Unknown Milk-Related Compounds 07/19/2023 Other Reaction(s): headache, flushed Shellfish Allergy Itching 05/17/2019 Shellfish-Derived Products Other Reaction(s): Unknown Soy Allergy (Obsolete) Swelling 05/17/2019 Soybean-Containing Drug Products 07/19/2023 Other Reaction(s): Unknown Wheat 07/19/2023 Other Reaction(s): feels mentally slow Medications norethindrone (Micronor) 0.35 MG tabletIndicatio ns:Abnormal uterine bleeding (AUB) Take 1 tablet (0.35 mg) by mouth Daily 28 tablet 11 04/14/2025 Active miSOPROStol (Cytotec) 200 MCG tabletIndicatio ns:Abnormal uterine bleeding (AUB),Hormone imbalance 4 tablets orally pre-procedur e once 4 tablet 04/21/2025 Active Active Problems Problem Noted Date Diagnosed [...] Encounters Date Type Department Care Team Description 05/12/2025 1:15 PM EDT Office Visit [facility] [address] [place] [phone] Abel Mccrary MD Encounter for postoperative care; Abnormal uterine bleeding (AUB); Hormone imbalance; Adenomyosis 05/12/2025 Results Follow-Up [facility] [address] [place] [phone] Abel Mccrary MD Bilateral screening mammogram with tomosynthesis 05/12/2025 Travel 05/09/2025 9:30 AM EDT Ancillary Procedure [facility] [address] [place] [address] Breast tenderness 05/09/2025 Travel 05/08/2025 Travel 04/24/2025 8:15 AM EDT Office Visit [facility] [address] [place] [address] Abel Mccrary MD Abnormal uterine bleeding (AUB); Hormone imbalance; Adenomyosis 04/22/2025 Orders Only [facility] [address] [place] [phone] Abel Mccrary MD Constipation, unspecified constipation type (Primary Dx) 04/21/2025 10:00 AM EDT Ancillary Procedure [facility] [address] [place] [address] Abnormal uterine bleeding (AUB) 04/21/2025 9:30 AM EDT Office Visit [facility] [address] [place] [address] Abel Mccrary MD Hormone imbalance (Primary Dx); Abnormal uterine bleeding (AUB); Adenomyosis 04/21/2025 Travel 04/21/2025 Telephone [facility] [place] [facility] [address] [place] [address] Beatriz Erickson RN medical question 04/18/2025 Results Follow-Up [facility] [address] [place] [address] Abel Mccrary MD IGP, APT HPV,RFX 16/18,45 04/15/2025 Telephone [facility] [place] [facility] [address] [place] [address] Abel Mccrary MD 04/15/2025 Orders Only [facility] [place] [facility] [address] [place] [address] Abel Mccrary MD Breast tenderness; Fullness of breast 04/14/2025 10:00 AM EDT Office Visit [facility] [address] [place] [phone] Abel Mccrary MD Encounter for gynecological examination; Abnormal uterine bleeding (AUB); Breast tenderness; Encounter for gynecological examination without abnormal finding; Encounter for screening for cervical cancer 04/14/2025 Travel 04/10/2025 Telephone [facility] [place] [facility] [address] [place] [address] David Real DO Appointment Request from Last 3 Months Family History Medical History Relation Name Comments Diabetes Father Heart disease Father Hyperlipidemia Father Hypertension Father Relation Name Status Comments Brother 4 brothers Father Mother Alive Son 2 sons Social History Tobacco Use Types Packs/Day Years Used Date Smoking Tobacco: Former Cigarettes Smokeless Tobacco: Never Tobacco Cessation:Counseling Given: Not Answered Alcohol Use Standard Drinks/Week Comments Not Currently 0 (1 standard drink = 0.6 oz pur e alcohol) Comments No Sex and Gender Information Value Date Recorded Sex Assigned at Not on file Legal Sex Female 8:13 PM EDT Gender Identity Not on file Sexual Orientation Not on file Last Filed Vital Signs Vital Sign Reading Time Taken Comments Blood Pressure 118/70 05/12/2025 1:24 PM EDT Pulse - - Temperature - - Respiratory Rate - - Oxygen Saturation - - Inhaled Oxygen Concentration - - Weight 70.3 kg (155 lb) 05/12/2025 1:24 PM EDT Height 170.2 cm (5' 7 ) 05/12/2025 1:24 PM EDT Body Mass Index 24.28 05/12/2025 1:24 PM EDT Plan of Treatment Not on file Procedures Procedure Name Priority Date/Time Associated Diagnosis Comments BI MAMMOGRAM SCREENING TOMOSYNTHESIS BILATERAL Routine 05/09/2025 9:37 AM EDT Breast tenderness US PELVIS TRANSVAGINAL Routine 04/21/2025 10:35 AM EDT Abnormal uterine bleeding (AUB) PROGESTERONE Routine 04/14/2025 11:13 AM EDT PCOS [...] cancer from Last 3 Months Results * Bilateral screening mammogram with tomosynthesis (05/09/2025 9:37 AM EDT) Anatomical Region Laterality Modality Breast Bilateral Mammography 05/11/2025 1:03 PM EDT Impressions 05/11/2025 1:09 PM EDT Impression: No specific evidence of malignancy seen in either breast. BIRADS 2 - Benign Findings DENSITY: There are scattered areas of fibroglandular density. FOLLOW-UP: Routine Screening Mammogram ELECTRONICALLY SIGNED BY: Iker Salazar M.D. Narrative 05/11/2025 1:09 PM EDT Examination: BI MAMMOGRAM SCREENING TOMOSYNTHESIS BILATERAL Clinical History: breast tenderness Technique: Screening digital mammography study of both breasts was performed with 2-D and 3-D tomosynthesis imaging. No prior study available for comparison. Findings: There is no evidence of dominant spiculated mass, grouped microcalcifications, or skin thickening which would be suggestive of malignancy. Procedure Note Iker Salazar MD - 05/11/2025 Examination: BI MAMMOGRAM SCREENING TOMOSYNTHESIS BILATERAL Clinical History: breast tenderness Technique: Screening digital mammography study of both breasts wasperformed with 2-D and 3-D tomosynthesis imaging. No prior study availablefor comparison. Findings: There is no evidence of dominant spiculated mass, groupedmicrocalcifications, or skin thickening which would be suggestive ofmalignancy. IMPRESSION: Impression: No specific evidence of malignancy seen in either breast. BIRADS 2 - Benign Findings DENSITY: There are scattered areas of fibroglandular density. FOLLOW-UP: Routine Screening Mammogram ELECTRONICALLY SIGNED BY: Iker Salazar M.D. us Abel Mccrary MD IMG BI PROCEDURES Final Result * US pelvis transvaginal (04/21/2025 10:35 AM EDT) Anatomical Region Laterality Modality Pelvis Ultrasound Study GA Study Date Study SHILO Working SHLIO (Source) 04/21/2025 Narrative 04/21/2025 5:37 PM EDT Images from the original result were not included. Obstetrics & Gynecology [address] [place] [address] [address] [address] [place] [address] - - - - - - - - - - - - - - - - - - - - - - - - - - - - - - - - - - - - - - - - - - - - - - - - - - - - - - - - - - - - - - - - - - - - Date of exam: 04/21/25 Patient name: Cliff Zhong : 1980 Age: 45 y.o. - - - - - - - - - - - - - - - - - - - - - - - - - - - - - - - Indication: abnormal uterine bleeding Surgical History: BS, D&C Method: Transvaginal ultrasound examination View: Adequate - - - - - - - - - - - - - - - - - - - - - - - - - - - - - - - Measurements: Uterus: 9.7 x 6.2 x 5.5 cm Volume: 173.5 cm Endometrial thickness: 10.2 mm Right ovary: 2.1 x 2.0 x 1.1 cm Volume: 2.3 cm Left ovary: 2.0 x 1.5 x 1.1 cm Volume: 1.6 cm - - - - - - - - - - - - - - - - - - - - - - - - - - - - - - - Findings: Uterus: The uterus is enlarged in size and globular in contour. Position: Anterverted Malformations: none Myometrium: The myometrium has a mottled, heterogeneous echotexture. The endometrial/myometrial border is rather indistinct. Fibroid(s): There is a single intramural, anterior, decreased echogenicity fibroid visualized measuring 1.0 x 0.6 x 1.0 cm. Endometrium: The endometrium appears normal in contour and thickness, there are no overt polyps or submucosal fibroids visualized. Polyp(s): none Cervix: The cervix appears unremarkable. - - - - - - - - - - - - - - - - - - - - - - - - - - - - - - - Right ovary: Visualized Morphology: normal appearing Cyst(s): normal, no cysts visualized Doppler: power doppler shows ovarian blood profusion Right adnexa: no overt adnexal mass - - - - - - - - - - - - - - - - - - - - - - - - - - - - - - - Left ovary: Visualized Morphology: normal appearing Cyst(s): normal, no cysts visualized Doppler: power doppler shows ovarian blood profusion Left adnexa: no overt adnexal mass - - - - - - - - - - - - - - - - - - - - - - - - - - - - - - - Cul de Sac: no free fluid - - - - - - - - - - - - - - - - - - - - - - - - - - - - - - - - - - - - - - - - - - - - - - - - - - - - - - - - - - - - - - - - - - - - Impression: The uterus is enlarged in size and has findings suggestive of adenomyosis. There is a subcentimeter intramural fibroid visualized. The endometrium appears normal in contour and thickness. Both ovaries are visible and appear normal in size and echotexture. There is no overt adnexal mass. There is no free fluid visible within the pelvis. - - - - - - - - - - - - - - - - - - - - - - - - - - - - - - - - - - - - - - - - - - - - - - - - - - - - - - - - - - - - - - - - - - - - us Abel Mccrary MD [facility] [place] US PROCEDURES Final Result * (ABNORMAL) PCOS Diagnostic Profile (04/14/2025 11:13 [...] still a threat. Clin. Chem. 2000; 46: 3260-7797. This test was developed and its performance characteristics determined by [facility]. It has not been cleared or approved by the Food and Drug Administration. Reference Range: Females 41 - 46y: 0.26 - 5.81 Median 0.58 AMH concentrations of >= 1.06 ng/mL is correlated with a better response to ovarian stimulation, produced more retrievable oocytes and higher odds of live according to Tu et al. Fertility and Sterility. 2010: 94:8746-4596. The current AMH test method correlates with [...] 8:07 PM EDT Performed at: 01 - [facility] [address] [place] [id number] New Grad Rn: Peter Carrasco MD, Phone: [phone] us Abel Mccrary MD LAB BLOOD ORDERABLES Final Res ult [facility] * Iron and TIBC (04/14/2025 11:13 AM EDT) [facility] Iron Bind.Cap.(TIBC) 305 250 - 450 ug/dL [facility] UIBC 227 131 - 425 ug/dL [facility] Iron 78 27 - 159 ug/dL [facility] Iron Saturation 26 15 - 55 % [facility] Blood Venous blood specimen / Unknown 04/14/2025 11:13 AM EDT 04/14/2025 Narrative [facility] - 04/19/2025 8:07 PM EDT Performed at: [address] [id number] New Grad Rn: Nnamdi Adame PhD, Phone: [phone] Abel Mccrary MD LAB BLOOD ORDERABLES Final Res ult Performing Organization Address [facility] Co de Phone Number [facility] * Progesterone (04/14/2025 11:13 AM EDT) [facility] Progesterone 2.8 ng/mL [facility] Comment: Follicular phase 0.1 - 0.9 Luteal phase 1.8 - 23.9 Ovulation phase 0.1 - 12.0 First trimester 11.0 - 44.3 Second trimester 25.4 - 83.3 Third trimester 58.7 - 214.0 Postmenopausal 0.0 - 0.1 04/14/2025 11:1 3 AM EDT 04/14/2025 Narrative [facility] - 04/19/2025 8:07 PM EDT Performed at: [address] [place] [id number] New Grad Rn: Nnamdi Adame PhD, Phone: [phone] Abel Mccrary MD LAB BLOOD ORDERABLES Final Res ult Performing Organization Address [facility] de Phone Number [facility] * (ABNORMAL) CBC (04/14/2025 11:13 AM EDT) [facility] WBC 5.1 3.4 - 10.8 [...] - 04/19/2025 8:07 PM EDT Performed at: [address] [id number] New Grad Rn: Nnamdi Adame PhD, Phone: [phone] Abel Mccrary MD LAB BLOOD ORDERABLES Final Res ult Performing Organization Address [facility] Co de Phone Number [facility] * Ferritin (04/14/2025 11:13 AM EDT) Ferritin 83 15 - 150 ng/mL [facility] Blood Venous blood specimen / Unknown 04/14/2025 11:13 AM EDT 04/14/2025 Narrative [facility] - 04/19/2025 8:07 PM EDT Performed at: [address] [id number] New Grad Rn: Nnamdi Adame PhD, Phone: [phone] Abel Mccrary MD LAB BLOOD ORDERABLES Final Res ult Performing Organization Address [facility] Co de Phone Number [facility] * IGP, APT HPV,RFX 16/18,45 (04/14/2025 12:00 AM EDT) Pathologist [facility] Diagnosis: Comment [facility] Comment: NEGATIVE FOR INTRAEPITHELIAL [...] 10:07 AM EDT Performed at: 01 - [facility] [id number] New Grad Rn: Masha Smith MD, Phone: [phone] Performed at: - [facility] [id number] New Grad Rn: Masha Smith MD, Phone: [phone] Specimen Comment: No. of containers..01 ThinPrep Vial us Abel Mccrary MD LAB BLOOD ORDERABLES Final Res ult [facility] from Last 3 Months Insurance [employer] [place] Care Teams Dining Room Hostess Relationship Specialty Start Date End Date Jeny Regan MD [address] [place] [phone] PCP - General Family Medicine 05/30/23
--- OUTSIDE RECORDS SUMMARY | 2025-06-16 15:53 | XMS_ITS | Clinical Summary ---
Author Organization [facility] Address [address], [address] [place] [address] Care Team Providers Care Metal Wire Coating Operator Name Role Phone Jeny Regan MD Primary Care Provider [phone] Social History Tobacco Use Types Packs/Day Years [...] 2011 Breast cancer screen 2021 Lipids 2021 Flu vaccine (#1) 04/25/2025 COVID-19 Vaccine (2023-2 5 season) 2025 HPV vaccine (No Doses Required) Completed Hepatitis A vaccine Aged Out No longe [...] patient's age to complete this topic Insurance [facility] [place] [address] [place] Care Teams Metal Wire Coating Operator Relationship Specialty Start Date End Date Jeny Regan MD [address] [place] [address] PCP - General Family Medicine 08/01/23
--- OUTSIDE RECORDS SUMMARY | 2025-06-16 16:05 | XMS_ITS | CCD ---
Author Organization [facility] Care Team Providers Care Classified Advertising Manager Name Role Phone DR JENY CABALLERO Admitting Unavailable CABALLERO, DR JENY Marroquin Primary Care Unavailable ADA, DR JENY Marroquin Attending Unavailable LADY, DR AYON Consulting Unavailable LADY, DR AYON Attending Unavailable CABALLERO, DR JENY Marroquin Primary Care Unavailable LADY, DR AYON Admitting Unavailable Jeny Caballero Unavailable Jeny Caballero MD Primary Care Provider JENY CABALLERO Referring Unavailable CABALLERO, JENY Primary Care Unavailable CABALLERO, JENY Referring Unavailable CABALLERO, JENY Primary Care Unavailable CABALLERO, JENY Referring Unavailable CABALLERO, JENY Primary Care Unavailable CABALLERO, JENY Referring Unavailable CABALLERO, JENY Primary Care Unavailable CABALLERO, JENY Referring Unavailable CABALLERO, JENY Primary Care Unavailable CABALLERO, JENY Referring Unavailable CABALLERO, JENY Primary Care Unavailable CABALLERO, JENY Referring Unavailable CABALLERO, JENY Primary Care Unavailable CABALLERO, JENY Referring Unavailable CABALLERO, JENY Primary Care Unavailable CABALLERO, JENY Primary Care Unavailable CABALLERO, JENY Referring Unavailable CABALLERO, JENY Referring Unavailable CABALLERO, JENY Primary Care Unavailable CABALLERO, JENY Referring Unavailable CABALLERO, JENY Primary Care Unavailable Jeny Caballero MD Primary Care Provider [phone] Jeny Caballero MD Primary Care Provider Jeny Caballero MD Attending Provider [phone] King Gong DO Attending Provider [phone] Nicolasa Woodward CMA Attending Provider UnavailAmna Jones MD Attending Provider Jeny Caballero Primary Care Unavailable Amna Hill Attending Unavailable Amna Hill Admitting Unavailable AMNA HILL Attending Unavailable AMNA HILL Attending Unavailable SERGIO, AMNA P Referring Unavailable HILL, PENOLA P Attending Unavailable Allergies Allergy Classification Reported Allergen(s) Allergy Type Date of Onset Reaction(s) Facility (1 source) Morphine Drug Allergy [facility] Repository (1 source) Shellfish Drug allergy (disorder) [facility] (3 sources) Beets preparation Drug Allergy 5 itchy throat, ears [facility] (3 sources) corn extract Drug Allergy 5 [facility] (3 sources) Milk Allergy to substance 5 headache, flushed [facility] (3 sources) Shellfish Allergy to substance 5 SHELL FISH [facility] (3 sources) Soybean preparation Drug Allergy 5 [facility] (10 sources) Wheat preparation Drug Allergy 3 feels mentally slow [facility] (3 sources) Soybean-contain ing Drug Produc Allergy to substance 4 [facility] Comment on above: Free Text Allergy: S oybean-containing Drug Products (3 sources) SUGARBEETS Allergy to substance 4 [facility] (7 sources) [place] Oil Drug Allergy 3 [facility] (7 sources) Shellfish Allergy to substance 9 Itching [facility] (7 sources) Soy protein Allergy to substance [address] [facility] (7 sources) Milk-Related Compounds Drug Allergy 3 [facility] (7 sources) Shellfish-Deriv ed Products Drug Allergy 3 [facility] (7 sources) Soybean-Contain ing Drug Products Drug Allergy 3 [facility] Medications Current Medications Medication Drug Class(es) Dates Sig (Normalized) Sig (Original) docusate sodium 100 mg oral capsule (1 source) Start: 5 End: 5 take 1 capsule by mouth twice daily as needed for constipation docusate sodium (Colace) 100 MG capsule Indications: Constipation, unspecified constipation type Take 1 capsule (100 mg) by mouth 2 (two) times a day as needed for constipation for up to 10 days 30 capsule 04/22/2025 05/02/2025 Active methylPREDNISolone 4 mg oral tablet (1 source) Corticosteroid Start: 5 Methylprednisolone 4 mg tablets,dose pack Active 0 PO per package directions May 12, 2025 12:00am PO PER PKG DIR for 6 days Complies with drug therapy miSOPROStol 0.2 mg oral tablet (5 sources) Prostaglandin E1 Analog Start: 5 take 4 tablets by mouth once miSOPROStol (Cytotec) 200 MCG tablet Indications: Abnormal uterine bleeding (AUB) , Hormone imbalance 4 tablets orally pre-procedure once 4 tablet 04/21/2025 Active norethindrone 0.35 mg oral tablet (7 sources) Start: 5 End: 6 take 1 tablet by mouth once daily norethindrone (Micronor) 0.35 MG tablet Indications: Abnormal uterine bleeding (AUB) Take 1 tablet (0.35 mg) by mouth Daily 28 tablet 11 04/14/2025 04/14/2026 Active polyethylene glycol 3350 01936 mg powder for oral solution (1 source) Osmotic Laxative Start: End: polyethylene glycol, PEG, 3350 (ClearLax) 17 GM/SCOOP powder Indications: Constipation, unspecified constipation type Take 17 g by mouth Daily for 3 days 51 g 04/22/2025 04/25/2025 Active Completed/Discontinued Medications Medication Drug Class(es) Dates Sig (Normalized) Sig (Original) activated charcoal 51972 mg powder for oral suspension (2 sources) Start: 12-19-2023 End: 04-14-2025 Charcoal powder Indications: Enteritis, noninfectious GastroCleanse as directed 12/19/2023 04/14/2025 Discontinued azithromycin 250 mg oral tablet (3 sources) Macrolide Antimicrobial Start: 12-04-2023 End: 10-11-2024 Azithromycin 250 mg tablet Discontinued 0 PO .COMPLEX December 04, 2023 12:00am October 11, 2024 2:48pm For 250 mg dose pack: take 500 mg today (day 1), then 250 mg for 4 days (days 2-5) PO bifidobacterium animalis [id number] unt / lactobacillus acidophilus [id number] unt oral capsule (2 sources) Start: 12-19-2023 End: 04-14-2025 Probiotic Product (Daily Probiotic) capsule Indications: Enteritis, noninfectious Essential-Biotics Complete (probiotic) as directed 12/19/2023 04/14/2025 Discontinued doxycycline hyclate 100 mg oral capsule (2 sources) Tetracycline-class Drug Start: 04-25-2025 End: 05-12-2025 take 1 capsule by mouth every twelve hours Doxycycline Hyclate 100 mg capsule Discontinued 100 MG PO Every 12 hours 6 3 April 25, 2025 12:00am May 12, 2025 11:25am fluconazole 150 mg oral tablet (3 sources) Azole Antifungal Start: 10-11-2024 End: 01-23-2025 take 1 tablet by mouth once daily Fluconazole 150 mg tablet Discontinued 150 MG PO Daily October 11, 2024 1:00am January 23, 2025 8:37am Progesterone (2 sources) Progesterone Start: 04-25-2025 End: 05-12-2025 Progesterone Micronized (Bulk) 100 % powder Discontinued 1 EACH MISCELLANE Daily April 25, 2025 12:00am May 12, 2025 11:25am Start: 04-25-2025 Progesterone M icronized (Bulk) 100 % powder Active 1 EACH MISCELLANE Daily April 25, 2025 12:00am Complies with drug therapy Saccharomyces boulardii (2 sources) Start: 12-19-2023 End: 04-14-2025 Saccharomyces boulardii 400 MG capsule Indications: Enteritis, noninfectious Saccharomyces boulardii 3 billion CFUs per capsule as directed 12/19/2023 04/14/2025 Discontinued Tramadol (2 sources) Opioid Agonist Start: 04-25-2025 End: 05-12-2025 take 1 tablet by mouth every eight hours as needed for pain Tramadol 25 mg tablet Discontinued 25 MG PO Every 8 hours as needed for pain 9 3 April 25, 2025 12:00am May 12, 2025 11:25am Start: 04-25-2025 take 1 tablet by mouth every e ight hours as needed for pain Problems Active Problems Problem Classification Problem Date Documented Date Episodic/Chronic Chronic obstructive pulmonary disease and bronchiectasis (3 sources) Bronchitis; Translations: [Bronchitis, not specified as acute or chronic] 12-07-2023 Episodic Digestive congenital anomalies (4 sources) Tongue tie; Translations: [Ankyloglossia] Onset: Chronic Endometriosis (4 sources) Uterine adenomyosis; Translations: [Adenomyosis] 04-21-2025 Chronic Headache; including migraine (2 sources) Headache; Translations: [Headache] 01-29-2025 Episodic Malaise and fatigue (10 sources) Fatigue; Translations: [Chronic fatigue, unspecified] Onset: 12-01-2023 Chronic Menstrual disorders (7 sources) Irregular periods; Translations: [Irregular menstruation, unspecified] Onset: 07-19-2023 Chronic Nonmalignant breast conditions (2 sources) Breast tenderness; Translations: [Mastodynia] 04-14-2025 Episodic Nutritional deficiencies (10 sources) Vitamin D deficiency; Translations: [Vitamin D deficiency, unspecified] Onset: 12-01-2023 Chronic Other aftercare (2 sources) Postoperative visit; Translations: [Encounter for other specified surgical aftercare] 05-09-2025 Episodic Other connective tissue disease (1 source) Abnormal posture; Translations: [ABNORMAL POSTURE] Onset: Episodic Other disorders of stomach and duodenum (3 sources) Indigestion; Translations: [Functional dyspepsia] 12-01-2023 Episodic Other endocrine disorders (6 sources) Disorder of endocrine system; Translations: [Endocrine disorder, unspecified] 04-21-2025 Episodic Other eye disorders (2 sources) Pain in eye; Translations: [Ocular pain, unspecified eye] 02-11-2025 Episodic Other female genital disorders (6 sources) Abnormal uterine bleeding; Translations: [Abnormal uterine and vaginal bleeding, unspecified] 04-10-2025 Chronic Other gastrointestinal disorders (1 source) Constipation; Translations: [Constipation, unspecified] 04-22-2025 Episodic Other hereditary and degenerative nervous system conditions (10 sources) Restless legs; Translations: [Restless legs syndrome] Onset: 12-01-2023 Chronic Other nervous system disorders (1 source) Other chronic pain; Translations: [OTHER CHRONIC PAIN] Onset: Chronic Other nervous system disorders (1 source) Other acute postprocedural pain; Translations: [Other acute postprocedural pain] Onset: Episodic Other nutritional; endocrine; and metabolic disorders (10 sources) Inborn error of metabolism; 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] Onset: 12-01-2023 Chronic Other nutritional; endocrine; and metabolic disorders (7 sources) Disorder of sulfur-bearing amino acid metabolism; 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, unspecified] Onset: 07-19-2023 Chronic Other screening for suspected conditions (not mental disorders or infectious disease) (2 sources) Patient encounter status; Translations: [Encounter for screening for malignant neoplasm of cervix] 04-14-2025 Episodic Prolapse of female genital organs (7 sources) Prolapse of female genital organs; Translations: [Female genital prolapse, unspecified] Onset: 07-19-2023 Chronic Residual codes; unclassified (6 sources) Genetic mutation; Translations: [Genetic susceptibility to other disease] 12-01-2023 Episodic Residual codes; unclassified (3 sources) Heterozygous methylenetetrahydrofolate reductase mutation; Translations: [Genetic susceptibility to other disease] 12-01-2023 Episodic Residual codes; unclassified (2 sources) Family history of aneurysm of blood vessel of brain; Translations: [Family history of ischemic heart disease and other diseases of the circulatory system] 01-29-2025 Episodic Spondylosis; intervertebral disc disorders; other back problems (4 sources) Pain in thoracic spine; Translations: [PAIN IN THORACIC SPINE] Onset: Episodic Past or Other Problems Problem Classification Problem Date Documented Date Episodic/Chronic Allergic reactions (7 sources) Allergic gastroenteritis; Translations: [Other allergic and dietetic gastroenteritis and colitis] Onset: 07-19-2023 07-19-2023 Episodic Benign neoplasm of uterus (7 sources) Intramural leiomyoma of uterus; Translations: [Intramural leiomyoma of uterus] Onset: 07-19-2023 07-19-2023 Episodic Cancer of cervix (8 sources) Low grade squamous intraepithelial lesion on cytologic smear of cervix (LGSIL); Translations: [Cervicovaginal cytology: Low grade squamous intraepithelial lesion] Onset: 07-15-2021 07-19-2023 Episodic Inflammation; infection of eye (except that caused by tuberculosis or sexually transmitteddisease) (10 sources) Internal hordeolum of left upper eyelid; Translations: [Hordeolum internum left upper eyelid] Onset: 07-19-2023 12-01-2023 Episodic Other connective tissue disease (10 sources) Fibromyalgia; Translations: [Fibromyalgia] Onset: 07-19-2023 12-01-2023 Episodic Other female genital disorders (7 sources) Enlarged uterus; Translations: [Hypertrophy of uterus] Onset: 07-19-2023 07-19-2023 Episodic Residual codes; unclassified (7 sources) Genetic predisposition; Translations: [Genetic susceptibility to other disease] Onset: 07-19-2023 07-19-2023 Episodic Results Test Name Value Interpretation Reference Range Facility BI MAMMOGRAM SCREENING TOMOS YNTHESIS BILATERALon 05-09-2025 BI MAMMOGRAM SCREENING TOMOSYNTHESIS BILATERAL This is a summary report. The complete report is available in the patient's medical record. If you cannot access the medical record, please contact the sending organization for a detailed fax or copy. Examination: BI MAMMOGRAM SCREENING TOMOSYNTHESIS BILATERAL Clinical History: breast tenderness Technique: Screening digital mammography study of both breasts was performed with 2-D and 3-D tomosynthesis imaging. No prior study available for comparison. Findings: There is no evidence of dominant spiculated mass, grouped microcalcifications, or skin thickening which would be suggestive of malignancy. IMPRESSION: Impression: No specific evidence of malignancy seen in either breast. BIRADS 2 - Benign Findings DENSITY: There are scattered areas of fibroglandular density. FOLLOW-UP: Routine Screening Mammogram ELECTRONICALLY SIGNED BY: Iker Salazar M.D. Normal Not Available HCG ( test) Ml aguilera Ql (U)Ordered By: Elia Hamm on 04-25-2025 HCG ( test) Ql (U) Negative [facility] HCG,Urineon 04-25-2025 Beta HCG ( test) Ql (U) Negative Normal [facility] Comment on above: Result Comment: PERF ORMED BY: [address] [place] [address] PATHOLOGIST VP [employer]ELOP[employer] TONG ARMIJO M.D. Performed By: #### U HCG #### [address] Lauri 04-25-2025 L ----- Specimen: [id number] Received: 04/25/25 Status: MIRI Guillermo Num: [id number] Spec Type: Surgical Subm Dr: SVETLANA Rain Tissues: A Endometrium - Curettings (ENDOMETRIAL CURETTING) Procedures: HE/2García/Jaquan L4 Age/ Patient Sex Location Account Attending Physician Cliff Zhong 45/F [place] [id number] SVETLANA Rain SPEC NUM: [id number] RECD: 04/25/25 STATUS: MIRI GUILLERMO NUM: [id number] CALISTA: 04/25/25-[address]: SVETLANA Rain ENTERED: 04/25/[address] [facility] [address]: SPEC TYPE: Surgical DEPT: S ENTERED BY: [id number] RECV BY: [id number] ORDERED: HE/2, Gross/Micro L4 ORDERED: HE/2, Gross/Micro L4 Pathological Diagnosis Endometrium, curettage: - Proliferative phase endometrium. - No evidence of hyperplasia or malignancy identified. Clinical Information Menorrhagia Gross Description Received in formalin labeled with the patients name, date of , and endometrial curettings are two Telfa pads with arndt-pink to red-brown, delicate tissue fragments, 2.5 x 1.5 x 0.3 cm in aggregate. The specimen is filtered and entirely submitted in a single cassette. (1, ns, [id number] A) Microscopic Description Microscopic examination is performed. Specimen: [id number] Received: 04/25/25 Status: MIRI Bethalissa Num: [id number] Spec Type: Surgical Subm Dr: SVETLANA Rain Tissues: A Endometrium - Curettings (ENDOMETRIAL CURETTING) Procedures: PAULA/Akash, Gross/Micro L4 Patient: Cliff Zhong [id number] (Continued) Specimen: Received: 04/25/25 (Continued) Signed (signature on file) Oc Blankenship MD 04/28/25 0830 Specimen: Received: 04/25/25 Status: MIRI Bethalissa Num: [id number] Spec Type: Surgical Subm Dr: Amna Hill MD-PEDRO Tissues: A Endometrium - Curettings (ENDOMETRIAL CURETTING) Procedures: García CASTILLO/Jaquan Churchill Patient: Cliff Zhong [id number] (Continued) Specimen: Received: 04/25/25 (Continued) CPT Codes 51189 Specimen: [id number] Received: 04/25/25 Status: MIRI Eagle Num: [id number] Spec Type: Surgical Subm Dr: Amna Hill MD-NOMS Tissues: A Endometrium - Curettings (ENDOMETRIAL CURETTING) Procedures: García CASTILLO/Jaquan L4 Patient: Cliff Zhong [id number] (Continued) Signed (signature on file) Oc Blankenship MD 04/28/2568 Normal [facility] Basophils Auto (Bld) [#/Vol] Ordered By: King Gong on 04-20-2025 Basophils (Bld) [#/Vol] 0.1 10 3/uL 0.0-0.1 [facility] Basophils/100 WBC Auto (Bld) Ordered By: King Gong on 04-20-2025 Basophils/100 WBC (Bld) 0.8 % 0.2-2.0 [facility] Eosinophils/100 WBC Auto (Bl d)Ordered By: King Gong on 04-20-2025 Eosinophils/100 WBC (Bld) 1.3 % 0.9-7.0 [facility] Erythrocyte distribution wid th Auto (RBC) [Ratio]Ordered By: King Gong on 04-20-2025 Erythrocyte distribution width (RBC) [Ratio] 14.1 % 11.0-15.0 [facility] Estimated glomerular filtrat ion rate (GFR) non- AmericanOrdered By: Jeny Caballero on 04-20-2025 GFR/1.73 sq M.predicted among non-blacks MDRD (S/P/Bld) [Vol rate/Area] mL/min/{1.73_m2} >=60 mL/min/1.73 m 2 [facility] Hematocrit Auto (Bld) [Volum e fraction]Ordered By: King Gong on 04-20-2025 Hematocrit (Bld) [Volume fraction] 35.8 % Low 36.0-48.0 [facility] Hemoglobin [Mass/volume] in BloodOrdered By: King Gong on 04-20-2025 Hemoglobin (Bld) [Mass/Vol] 12.1 g/dL 12.0-16.0 [facility] Laboratory - Chemistry and C hemistry - challengeOrdered By: Jeny Caballero on 04-20-2025 Calcium [Mass/Vol] 8.4 mg/dL Low 8.5-10.1 [place] Chloride [Moles/Vol] 104 mmol/L 98-107 [facility] CO2 [Moles/Vol] 28.7 mmol/L 21.0-32.0 [facility] Creatinine [Mass/Vol] 0.58 mg/dL 0.55-1.02 [facility] GFR/1.73 sq M.predicted MDRD (S/P/Bld) [Vol rate/Area] mL/min/{1.73_m2} >=60 mL/min/1.73 m 2 [facility] Glucose [Mass/Vol] 80 mg/dL 74-106 [place] Potassium [Moles/Vol] 3.9 mmol/L 3.5-5.1 [facility] Sodium [Moles/Vol] 140 mmol/L 136-145 [place] Urea nitrogen [Mass/Vol] 20.0 mg/dL High 7.0-18.0 [facility] Urea nitrogen/Creatinine [Mass ratio] 34.5 mg/mg [facility] Laboratory - Hematology and Cell countsOrdered By: King Gong on 04-20-2025 Immature granulocytes/100 WBC (Bld) 0.2 % 0.0-0.5 [facility] Leukocytes [#/volume] correc carmella for nucleated erythrocytes in Blood by Automated counOrdered By: King Gong on 04-20-2025 WBC corrected for nucl RBC Auto (Bld) [#/Vol] 6.1 10 3/uL 4.0-11.0 [facility] Lymphocytes Auto (Bld) [#/Vo l]Ordered By: King Gong on 04-20-2025 Lymphocytes (Bld) [#/Vol] 2.0 10 3/uL 1.2-3.8 [facility] Lymphocytes/100 WBC Auto (Bl d)Ordered By: King Gong on 04-20-2025 Lymphocytes/100 WBC (Bld) 32.6 % 20.5-60.0 [facility] MCH Auto (RBC) [Entitic mass ]Ordered By: King Gong on 04-20-2025 MCH (RBC) [Entitic mass] 31.2 pg 26.7-34.0 [facility] MCHC Auto (RBC) [Mass/Vol]Or dered By: King Gong on 04-20-2025 MCHC (RBC) [Mass/Vol] 33.8 g/dL 29.9-35.2 [facility] MCV Auto (RBC) [Entitic vol] Ordered By: King Gong on 04-20-2025 MCV (RBC) [Entitic vol] 92.3 fL 81.0-99.0 F [facility] Monocytes Auto (Bld) [#/Vol] Ordered By: King Gong on 04-20-2025 Monocytes (Bld) [#/Vol] 0.4 10 3/uL 0.3-0.8 [facility] Monocytes/100 WBC Auto (Bld) Ordered By: King Gong on 04-20-2025 Monocytes/100 WBC (Bld) 6.7 % 1.7-12.0 F [facility] Neutrophils Auto (Bld) [#/Vo l]Ordered By: King Gong on 04-20-2025 Neutrophils (Bld) [#/Vol] 3.6 10 3/uL 1.4-6.5 [facility] Neutrophils/100 WBC Auto (Bl d)Ordered By: King Gong on 04-20-2025 Neutrophils/100 WBC (Bld) 58.4 % 43.0-75.0 [facility] No Panel InformationOrdered By: King Gong on 04-20-2025 Eosinophils # (Auto) 0.1 10 3/uL 0.0-0.7 [facility] Human Chorionic Gonadotropin, Qual Negative NEGATIVE [facility] Immature Granulocyte # (Auto) 0.01 10 3/uL 0.00-0.03 [facility] Platelet mean volume Auto (B ld) [Entitic vol]Ordered By: King Gong on 04-20-2025 Platelet mean volume (Bld) [Entitic vol] 11.4 fL 9.5-13.5 [facility] Platelets Auto (Bld) [#/Vol] Ordered By: King Gong on 04-20-2025 Platelets (Bld) [#/Vol] 254 10 3/uL 150-450 [facility] RBC Auto (Bld) [#/Vol]Ordere d By: King Gong on 04-20-2025 RBC (Bld) [#/Vol] 3.88 10 6/uL Low 4.20-5.40 [facility] Serum or plasma anion gap de terminationOrdered By: Jeny Caballero on 04-20-2025 Anion gap [Moles/Vol] 11.2 mmol/L [facility] Serum or plasma thyroglobuli n antibody assay (units/volume)on 02-14-2025 Thyroglobulin Ab Qn [IU]/mL 0.0-0.9 [facility] Comment on above: Thyroglobulin Antibo dy measured by FincoMethodologyIt should be noted that the presence of thyroglobulinantibodies may not be pathogenic nor diagnostic, especiallyat very low levels. The assay kettle operator has found thatfour percent of individuals without evidence of thyroiddisease or autoimmunity will have positive TgAb levels upto 4 IU/mL.Performed at: [facility] [address] [id number] Director: Nnamdi Adame PhD, Phone: [phone] Serum or plasma thyroperoxid ase antibody assay (units/volume)on 02-14-2025 TPO Ab Qn 23 [IU]/mL 0-34 [facility] Cholesterol in LDL Calc [Mas s/Vol]on 01-17-2025 Cholesterol in LDL [Mass/Vol] Cholesterol in LDL [Mass/volume] in Serum or Plasma by calculation [facility] Comment on above: <100 mg/dl [id number] 0-129 mg/dl NEAR OR ABOVE [id number] mg/dl BORDERLINE [id number] mg/dl HIGH>190 mg/dl VERY HIGH Cholesterol in VLDL Calc [Ma ss/Vol]on 01-17-2025 Cholesterol in VLDL [Mass/Vol] Cholesterol in VLDL [Mass/volume] in Serum or Plasma by calculation [facility] Estimated glomerular filtrat ion rate (GFR) non- Americanon 01-17-2025 GFR/1.73 sq M.predicted among non-blacks MDRD (S/P/Bld) [Vol rate/Area] Estimated glomerular filtration rate (GFR) non- >=60 mL/min/1.73 m 2 [facility] Globulin Calc (S) [Mass/Vol] on 01-17-2025 Globulin (S) [Mass/Vol] Serum globulin measurement by calculation (mass/volume) [facility] Laboratory - Chemistry and C hemistry - challengeon 01-17-2025 Albumin [Mass/Vol] 3.6 g/dL 3.4-5.0 [place] ALP [Catalytic activity/Vol] 79 U/L 46-116 [facility] ALT [Catalytic activity/Vol] 20 U/L 14-59 [facility] AST [Catalytic activity/Vol] 16 U/L 15-37 [facility] Bilirubin [Mass/Vol] 0.6 mg/dL 0.2-1.0 [facility] Calcium [Mass/Vol] 8.5 mg/dL 8.5-10.1 [place] Chloride [Moles/Vol] 106 mmol/L 98-107 [facility] Cholesterol [Mass/Vol] 237 mg/dL High <=200 [facility] Cholesterol in HDL [Mass/Vol] 91 mg/dL High 40-60 [facility] Comment on above: > or =60 mg/dl - LOW CARDIOVASCULAR RISK<40 mg/dl - HIGH CARDIOVASCULAR RISK CO2 [Moles/Vol] 29.0 mmol/L 21.0-32.0 [facility] Creatinine [Mass/Vol] 0.63 mg/dL 0.55-1.02 [facility] GFR/1.73 sq M.predicted MDRD (S/P/Bld) [Vol rate/Area] mL/min/{1.73_m2} >=60 mL/min/1.73 m 2 [facility] Glucose [Mass/Vol] 76 mg/dL 74-106 [place] Potassium [Moles/Vol] 4.1 mmol/L 3.5-5.1 [facility] Protein [Mass/Vol] 6.8 g/dL 6.4-8.2 [place] Sodium [Moles/Vol] 141 mmol/L 136-145 [place] Triglyceride [Mass/Vol] 31 mg/dL <=150 F [facility] Urea nitrogen [Mass/Vol] 21.0 mg/dL High 7.0-18.0 [facility] Urea nitrogen/Creatinine [Mass ratio] 33.3 mg/mg [facility] Serum or plasma albumin/glob ulin mass ratioon 01-17-2025 Albumin/Globulin [Mass ratio] Serum or plasma albumin/globulin mass ratio [facility] Serum or plasma anion gap de terminationon 01-17-2025 Anion gap [Moles/Vol] Serum or plasma an ion gap determination [facility] Serum or plasma total choles terol/high density lipoprotein (HDL) cholesterol mass dagoberto 01-17-2025 Cholesterol.total/Katie sterol in HDL [Mass ratio] Serum or plasma total cholesterol/high density lipoprotein (HDL) cholesterol mass rat [facility] Comment on above: 3.3 - 4.4 LOW RISK4. 4 - 7.1 AVERAGE RISK7.1 - 11.0 MODERATE RISK>11.0 HIGH RISK Basophils Auto (Bld) [#/Vol] on 01-16-2025 Basophils (Bld) [#/Vol] Automated basophil count 0.0-0.1 [facility] Basophils/100 WBC Auto (Bld) on 01-16-2025 Basophils/100 WBC (Bld) Automated basophil % 0. 2-2.0 [facility] Eosinophils/100 WBC Auto (Bl d)on 01-16-2025 Eosinophils/100 WBC (Bld) Automated eosinophil % 0.9-7.0 [facility] Erythrocyte distribution wid th Auto (RBC) [Ratio]on 01-16-2025 Erythrocyte distribution width (RBC) [Ratio] Erythrocyte distribution width [Ratio] by Automated count 11.0-15.0 [facility] Estimated glomerular filtrat ion rate (GFR) non- Americanon 01-16-2025 GFR/1.73 sq M.predicted among non-blacks MDRD (S/P/Bld) [Vol rate/Area] Estimated glomerular filtration rate (GFR) non- >=60 mL/min/1.73 m 2 [facility] Hematocrit Auto (Bld) [Volum e fraction]on 01-16-2025 Hematocrit (Bld) [Volume fraction] Hematocrit [Volume Fraction] of Blood by Automated count 36.0-48.0 [facility] Hemoglobin [Mass/volume] in Bloodon 01-16-2025 Hemoglobin (Bld) [Mass/Vol] Hemoglobin [Mass/volume] in Blood 12.0-16.0 [facility] Laboratory - Chemistry and C hemistry - challengeon 01-16-2025 Calcium [Mass/Vol] 8.7 mg/dL 8.5-10.1 [place] Chloride [Moles/Vol] 105 mmol/L 98-107 [facility] CO2 [Moles/Vol] 29.6 mmol/L 21.0-32.0 [facility] Creatinine [Mass/Vol] 0.66 mg/dL 0.55-1.02 [facility] [place] [facility] Free T4 [Mass/Vol] 0.80 ng/dL 0.76-1.46 [place] GFR/1.73 sq M.predicted MDRD (S/P/Bld) [Vol rate/Area] mL/min/{1.73_m2} >=60 mL/min/1.73 m 2 [facility] Glucose [Mass/Vol] 82 mg/dL 74-106 [place] Potassium [Moles/Vol] 3.8 mmol/L 3.5-5.1 [facility] [place] [facility] Sodium [Moles/Vol] 141 mmol/L 136-145 [place] TSH Qn 1.214 m[IU]/L 0.358-3.740 [facility] Urea nitrogen [Mass/Vol] 19.0 mg/dL High 7.0-18.0 [facility] Urea nitrogen/Creatinine [Mass ratio] 28.8 mg/mg [facility] Laboratory - Hematology and Cell countson 01-16-2025 Immature granulocytes/100 WBC (Bld) 0.2 % 0.0-0.5 [facility] Leukocytes [#/volume] correc carmella for nucleated erythrocytes in Blood by Automated counon 01-16-2025 WBC corrected for nucl RBC Auto (Bld) [#/Vol] Leukocytes [#/volume] corrected for nucleated erythrocytes in Blood by Automated coun 4.0-11.0 [facility] Lymphocytes Auto (Bld) [#/Vo l]on 01-16-2025 Lymphocytes (Bld) [#/Vol] Lymphocytes [#/volume] in Blood by Automated count 1.2-3.8 [facility] Lymphocytes/100 WBC Auto (Bl d)on 01-16-2025 Lymphocytes/100 WBC (Bld) Lymphocytes/100 leukocytes in Blood by Automated count 20.5-60.0 [facility] MCH Auto (RBC) [Entitic mass ]on 01-16-2025 MCH (RBC) [Entitic mass] MCH [Entitic mass] by Automated count 26.7-34.0 [facility] MCHC Auto (RBC) [Mass/Vol]on 01-16-2025 MCHC (RBC) [Mass/Vol] MCHC [Mass/volume] by Automated count 29.9-35.2 [facility] MCV Auto (RBC) [Entitic vol] on 01-16-2025 MCV (RBC) [Entitic vol] MCV [Entitic vol ume] by Automated count 81.0-99.0 [facility] Monocytes Auto (Bld) [#/Vol] on 01-16-2025 Monocytes (Bld) [#/Vol] Automated blood monocyte count 0.3-0.8 [facility] Monocytes/100 WBC Auto (Bld) on 01-16-2025 Monocytes/100 WBC (Bld) Automated monocyte % 1. 7-12.0 [facility] Neutrophils Auto (Bld) [#/Vo l]on 01-16-2025 Neutrophils (Bld) [#/Vol] Neutrophils [#/volume] in Blood by Automated count 1.4-6.5 [facility] Neutrophils/100 WBC Auto (Bl d)on 01-16-2025 Neutrophils/100 WBC (Bld) Automated neutrophil % 43.0-75.0 [facility] No Panel Informationon 01-16 Eosinophils # (Auto) 0.1 10 3/uL 0.0-0.7 [facility] [place] [facility] Immature Granulocyte # (Auto) 0.01 10 3/uL 0.00-0.03 [facility] Platelet mean volume Auto (B ld) [Entitic vol]on 01-16-2025 Platelet mean volume (Bld) [Entitic vol] Platelet mean volume [Entitic volume] in Blood by Automated count 9.5-13.5 [facility] Platelets Auto (Bld) [#/Vol] on 01-16-2025 Platelets (Bld) [#/Vol] Platelets [#/vol ume] in Blood by Automated count 150-450 [facility] RBC Auto (Bld) [#/Vol]on RBC (Bld) [#/Vol] Erythrocytes [#/volu me] in Blood by Automated count Low 4.20-5.40 [facility] Serum or plasma anion gap de terminationon 01-16-2025 Anion gap [Moles/Vol] Serum or plasma an ion gap determination [facility] Pap IG,rfx Aptima HPV all pt hon 07-20-2021 . . Normal [facility] Comment on above: Performed By: #### P [id number] #### [facility] [address] [place] [address] Dr. Iris Estrella DIAGNOSIS: Comment [facility] Comment on above: Result Comment: NEGA TIVE FOR INTRAEPITHELIAL LESION OR MALIGNANCY. Performed By: #### P [id number] #### [facility] [address] [place] [address] Dr. Iris Estrella Methodology: Comment [facility] Comment on above: Result Comment: This liquid based ThinPrep(R) pap test was screened with the use of an image guided system. Performed By: #### P [id number] #### [facility] [address] [place] [address] Dr. Iris Estrella Note: Comment [facility] Comment on above: Result Comment: The Pap smear is a screening test designed to aid in the detection of premalignant and malignant conditions of the uterine cervix. It is not a diagnostic procedure and should not be used as the sole means of detecting cervical cancer. Both false-positive and false-negative reports do occur. . Performed By: #### P [id number] #### [facility] [address] [place] [address] Dr. Iris Estrella Performed by: Comment Normal [facility] Comment on above: Result Comment: Jazmín Jauregui, Maintenance Services Dispatcher (ASCP) Performed By: #### P [id number] #### [facility] [address] [place] [address] Dr. Iris Estrella Reflex Criteria: Comment [facility] Comment on above: Result Comment: The HPV DNA reflex criteria were not met with this specimen result therefore, no HPV testing was performed. . Performed By: #### P [id number] #### [facility] [address] [place] [address] Dr. Iris Estrella Specimen adequacy: Comment Normal [facility] Comment on above: Result Comment: Sati sfactory for evaluation. Endocervical and/or squamous metaplastic cells (endocervical component) are present. Performed By: #### P [id number] #### [facility] [address] [place], [place] [address] Dr. Iris Estrella Vital Signs Date Time Vital Sign Value Performing Clinician Facility 05-12-2025 13:24-0400 Body height 170.2 cm Amna Hill MD Work Phone: [facility] 05-12-2025 13:24-0400 Body mass index (BMI) [Ratio] 24.28 kg/m2 Amna Hill MD Work Phone: [facility] 05-12-2025 13:24-0400 Body weight 70.31 kg Amna Hill MD Work Phone: [facility] 05-12-2025 13:24-0400 Diastolic blood pressure 70 mm[Hg] Amna Hill MD Work Phone: [facility] 05-12-2025 13:24-0400 Systolic blood pressure 118 mm[Hg] Amna Hill MD Work Phone: [facility] 05-12-2025 11:24-0400 Body height 170.18 cm Jeny Caballero MD Work Phone: [facility] 05-12-2025 11:24-0400 Body mass index (BMI) [Ratio] 24.3 kg/m2 Jeny Caballero MD Work Phone: [facility] 05-12-2025 11:24-0400 Body weight 70.3 kg Jeny Caballero MD Work Phone: [facility] 05-12-2025 11:24-0400 Diastolic blood pressure 77 mm[Hg] Jeny Caballero MD Work Phone: [facility] 05-12-2025 11:24-0400 Heart rate 61 /min Jeny Caballero MD Work Phone: [facility] 05-12-2025 11:24-0400 Systolic blood pressure 117 mm[Hg] Jeny Caballero MD Work Phone: [facility] 04-25-2025 12:55-0400 Diastolic blood pressure 70 mm[Hg] Jeny Caballero MD Work Phone: [facility] 04-25-2025 12:55-0400 Heart rate 56 /min Jeny Caballero MD Work Phone: [facility] 04-25-2025 12:55-0400 Respiratory rate 16 /min Jeny Caballero MD Work Phone: [facility] 04-25-2025 12:55-0400 SaO2% (BldA) [Mass fraction] 100 % Jeny Caballeor MD Work Phone: [facility] 04-25-2025 12:55-0400 Systolic blood pressure 113 mm[Hg] Jeny Caballero MD Work Phone: [facility] 04-25-2025 12:00-0400 Body temperature 98.4 [degF] Jeny Caballero MD Work Phone: [facility] 04-25-2025 11:35-0400 Inhaled oxygen flow rate 8 L/min Jeny Caballero MD Work Phone: [facility] 04-25-2025 06:49-0400 Body height 170.18 cm Jeny Caballero MD Work Phone: [facility] 04-25-2025 06:49-0400 Body weight 70.3 kg Jeny Caballero MD Work Phone: [facility] 04-21-2025 09:32-0400 Body mass index (BMI) [Ratio] 24.43 kg/m2 Amna Hill MD Work Phone: [facility] 04-21-2025 09:32-0400 Body weight 70.76 kg Amna Hill MD Work Phone: [facility] 04-21-2025 09:32-0400 Diastolic blood pressure 72 mm[Hg] Amna Hill MD Work Phone: [facility] 04-21-2025 09:32-0400 Systolic blood pressure 120 mm[Hg] Amna Hill MD Work Phone: [facility] 04-14-2025 09:48-0400 Body mass index (BMI) [Ratio] 24.75 kg/m2 Amna Hill MD Work Phone: [facility] 04-14-2025 09:48-0400 Body weight 71.67 kg Amna Hill MD Work Phone: [facility] 04-14-2025 09:48-0400 Diastolic blood pressure 62 mm[Hg] Amna Hill MD Work Phone: [facility] 04-14-2025 09:48-0400 Systolic blood pressure 126 mm[Hg] Amna Hill MD Work Phone: [facility] 01-23-2025 08:35-0400 Body height 167.64 cm [facility] 01-23-2025 08:35-0400 Body mass index (BMI) [Ratio] 25.3 kg/m2 [facility] 01-23-2025 08:35-0400 Body weight 71.21 kg [facility] 01-23-2025 08:35-0400 Diastolic blood pressure 74 mm[Hg] [facility] 01-23-2025 08:35-0400 Heart rate 66 /min [facility] 01-23-2025 08:35-0400 Systolic blood pressure 117 mm[Hg] [facility] 08-01-2023 09:45-0500 Body height 171.45 cm Jeny Caballero Other [employer] Other 08-01-2023 09:45-0500 Body mass index (BMI) [Ratio] 24.78 kg/m2 Jeny Caballero Other [employer] Other 08-01-2023 09:45-0500 Body weight 72.85 kg Jeny Caballero Other [employer] Other 11-07-2023 09:45-0500 Diastolic blood pressure 72 mm[Hg] Jeny Caballero Other [employer] Other 08-01-2023 09:45-0500 Systolic blood pressure 109 mm[Hg] Jeny Caballero Other [employer] Other Encounters Encounter Date Encounter Type Care Provider Facility Start: 05-12-2025 End: 05-12-2025 ambulatory AMNA HILL Not Available Start: 05-12-2025 End: 05-12-2025 Postop follow up visit related to original px Amna Hill MD Work Phone: [facility] Comment on above: Encounter for postop erative care; Abnormal uterine bleeding (AUB); Hormone imbalance; Adenomyosis Start: 05-12-2025 End: 05-12-2025 ambulatory Jeny Caballero MD Work Phone: [facility] Work Phone: Start: 05-12-2025 End: 05-12-2025 Patient encounter procedure Jeny Caballero MD -[facility] Work Phone: Start: 05-09-2025 End: 05-09-2025 ambulatory AMNA HILL Not Available Start: 04-25-2025 End: 04-25-2025 Admission to same day surgery center [facility] [place] Start: 04-25-2025 End: 04-25-2025 ambulatory Jeny Caballero MD Work Phone: [facility] Work Phone: Start: 04-22-2025 End: 04-22-2025 Orders Only Amna Hill MD Work Phone: [facility] Comment on above: Constipation, unspec ified constipation type (Primary Dx) Start: 04-21-2025 Non-patient / Non-visit Nicolasa Hinkle CMA -[facility] Work Phone: Start: 04-21-2025 End: 04-21-2025 ambulatory AMNA HILL Not Available Start: 04-21-2025 End: 04-21-2025 Office outpatient visit 15 minutes Amna Hill MD Work Phone: [facility] [place] [facility] Comment on above: Hormone imbalance (P rimary Dx); Abnormal uterine bleeding (AUB); Adenomyosis Start: 04-20-2025 Non-patient / Non-visit King Aguilera DO -[facility] Work Phone: Start: 04-14-2025 End: 04-14-2025 ambulatory AMNA HILL Not Available Start: 04-14-2025 End: 04-14-2025 Office outpatient visit 10 minutes Amna Hill MD Work Phone: [facility] GURJIT ROMAN Comment on above: Encounter for gyneco logical examination; Abnormal uterine bleeding (AUB); Breast tenderness; Encounter for gynecological examination without abnormal finding; Encounter for screening for cervical cancer Start: 04-14-2025 End: 04-14-2025 Patient encounter status Amna Hill MD Work Phone: [facility] Start: 02-14-2025 Non-patient / Non-visit Jeny schmitz MD -[facility] Work Phone: Start: 01-23-2025 End: 01-23-2025 ambulatory [facility] Work Phone: Start: 01-23-2025 End: 01-23-2025 Patient encounter procedure [facility] Work Phone: Start: 01-17-2025 Non-patient / Non-visit [facility] Work Phone: Start: 01-16-2025 Non-patient / Non-visit [facility] Physician [facility] Work Phone: Start: 01-15-2025 Patient encounter status [facility] Start: 11-29-2023 End: 11-30-2023 [facility] Start: 11-23-2023 End: 11-23-2023 Subsequent hospital visit by physician [facility] Comment on above: Canceled (Patient Ca ncel > 24 HRS) Start: 11-08-2023 End: 11-09-2023 ambulatory JENY CABALLERO [facility] Start: 11-08-2023 End: 11-08-2023 Subsequent hospital visit by physician Pastora RASHID [facility] Speech Therapy Comment on above: Arrived Start: 10-30-2023 End: 10-31-2023 ambulatory JENY CABALLERO [facility] Start: 09-27-2023 End: 09-28-2023 ambulatory JENY CABALLERO [facility] Start: 09-13-2023 End: 09-14-2023 ambulatory JENY CABALLERO [facility] Start: 08-30-2023 End: 08-31-2023 ambulatory JENY CABALLERO [facility] Start: 08-01-2023 End: 08-01-2023 ambulatory Jeny Caballero Other [employer] Other Start: 08-01-2023 Office outpatient vi sit 15 minutes Jeny Caballero [facility] Start: 02-22-2022 End: 03-08-[address] JENY CABALLERO Facility:[facility] Start: 07-15-2021 Encounter for cervic al smear to confirm findings of recent normal smear following initial abnormal smear DR NANY NARAYANAN [facility] Start: 06-30-2021 End: 06-30-[address] NANY NARAYANAN Facility:[facility] Start: 06-30-2021 End: 06-30-2021 Encounter for cervical smear to confirm findings of recent normal smear following initial abnormal smear DR NANY NARAYANAN Facility:[facility] Procedures Date Procedure Procedure Detail Performing Clinician Start: 04-25-2025 Hysteroscopy Jeny schmitz MD Work Phone: Start: 07-19-2023 H/O: surgery H/O bilateral salpingec lorri Hill MD Work Phone: Plan of Treatment Date Care Activity Detail Author Start: 06-06-2025 End: 06-06-2025 Professional / ancillary services management 06/06/2025 3:00 PM EDT Ancillary Procedure [facility] [address] [place] [phone] [facility] [place] [facility] Start: 05-12-2025 End: 05-12-2025 Patient encounter procedure 05/12/2025 1:15 PM EDT Office Visit [facility] [place] [facility] [address] [place] [phone] Amna Hill MD [address] [place] [address] [facility] [place] [facility] Start: 04-30-2025 End: 04-30-2025 Patient encounter procedure 04/30/2025 1:10 PM EDT Office Visit [facility] [address] [place] [phone] Elpidio Cummings, [address] [place] [address] [facility] Start: 04-30-2025 End: 04-30-2025 Patient encounter procedure 04/30/2025 8:45 AM EDT Office Visit [facility] [address] [place] [phone] Amna Hill MD [address] [place] [address] [facility] Start: 04-30-2025 End: 04-30-2025 Professional / ancillary services management 04/30/2025 8:30 AM EDT Ancillary Procedure [facility] [address] [place] [phone] [facility] Start: 04-25-2025 End: 04-25-2025 [facility] Start: 04-25-2025 End: 04-25-2025 Professional / ancillary services management [facility] [place] [facility] Start: 04-24-2025 End: 04-24-2025 Patient encounter procedure 04/24/2025 8:15 AM EDT Office Visit [facility] [place] [facility] [address] [place] [phone] Amna Hill MD [address] [place] [address] [facility] [place] [facility] Start: 04-21-2025 End: 04-21-2026 Estradiol Estradiol Lab Routine Hormone imbalance Expected: 04/21/2025 (Approximate), Expires: 04/21/2026 [facility] Work Phone: Comment on above: Expected: 04/21/2025 (Approximate), Expires: 04/21/2026 Start: 04-14-2025 End: 06-15-2026 DBT Breast - bilateral diagnostic Bilateral diagnostic mammogram with tomosynthesis Imaging Routine Breast tenderness Expected: 04/14/2025, Expires: 06/15/2026 [facility] Work Phone: Comment on above: Expected: 04/14/2025 , Expires: 06/15/2026 Start: 04-14-2025 End: 04-14-2026 PCOS Diagnostic Profile PCOS Diagnostic Profile Lab Routine Abnormal uterine bleeding (AUB) Expected: 04/14/2025 (Approximate), Expires: 04/14/2026 [facility] Comment on above: Expected: 04/14/2025 (Approximate), Expires: 04/14/2026 Start: 02-28-2024 ambulatory Ambulatory [facility] Start: 01-31-2024 ambulatory Ambulatory [facility] Start: 01-03-2024 ambulatory Ambulatory [facility] Start: 12-06-2023 ambulatory Ambulatory [facility] Start: 11-29-2023 End: 11-29-2023 Patient encounter procedure 11/29/2023 11:30 AM EST Appointment [facility] Speech Therapy [address] [place] [id number] Pastora Ledesma, [facility] Therapy Start: 04-25-2023 Influenza vaccination Flu vaccine (# 1) [facility] Start: 2021 Lipid panel Lipids [facility] Start: 2011 Screening for malign ant neoplasm of cervix [facility] Start: 2002 Screening for malign ant neoplasm of cervix Pap smear [facility] Start: 01-20-2000 DTaP/Tdap/Td vaccine (1 - Tdap) DTaP/Tdap/Td vaccine (1 - Tdap) [facility] Start: 1999 Hepatitis C screening Hepatitis C sc reen [facility] Start: 01-20-1996 HIV screening HIV screen [facility] Start: 1993 Depression Screen Depression Screen [facility] Start: 1982 Varicella vaccine (1 of 2 - 2-dose childhood series) Varicella vaccine (1 of 2 - 2-dose childhood series) [facility] Start: 1981 COVID-19 Vaccine (#1) COVID-19 Vacci ne (#1) [facility] Start: 1981 Hepatitis B vaccine (1 of 3 - 3-dose series) Hepatitis B vaccine (1 of 3 - 3-dose series) [facility] CBC panel - Blood by Automated count CBC Lab Routine Abnormal uterine bleeding (AUB) Ordered: 04/14/2025 [facility] Comment on above: Ordered: 04/14/2025 Estradiol Estradiol Lab Ro utine Abnormal uterine bleeding (AUB) Ordered: 05/12/2025 [facility] Work Phone: Comment on above: Ordered: 05/12/2025 Ferritin [Mass/volum e] in Serum or Plasma Ferritin Lab Routine Abnormal uterine bleeding (AUB) Ordered: 04/14/2025 [facility] Comment on above: Ordered: 04/14/2025 IGP, APT HPV,RFX 16/18,45 IGP, APT HPV,RFX 16/18,45 Lab Routine Abnormal uterine bleeding (AUB) Encounter for gynecological examination without abnormal finding Encounter for screening for cervical cancer Ordered: 04/14/2025 [facility] Comment on above: Ordered: 04/14/2025 Iron and Iron bindin g capacity panel - Serum or Plasma Iron and TIBC Lab Routine Abnormal uterine bleeding (AUB) Ordered: 04/14/2025 [facility] Comment on above: Ordered: 04/14/2025 Patient Education Uterine fibroi ds Heavy periods Dilation and curettage (DandC) Know your Meds [facility] Work Phone: Patient referral [facility] Work Phone: Progesterone Progesterone Lab Routine Abnormal uterine bleeding (AUB) Ordered: 04/14/2025 [facility] Comment on above: Ordered: 04/14/2025 Testosterone, free, total Testosterone, free, total Lab Routine Abnormal uterine bleeding (AUB) Ordered: 05/12/2025 [facility] Comment on above: Ordered: 05/12/2025 Payers Date Payer Category Payer Medicaid [facility] [id number] 2022 Medicaid [id number] 1981 Unknown [id number] [id number] 1981 Unknown [id number] [id number] 1981 Unknown [id number] 2.16840.1.321223.3.579.2.173 1981 Unknown [id number] 2.16840.1.925152.3.579.2.173 1981 Unknown [id number] 2.16840.1.024256.3.579.2.173 1981 Unknown [id number] 2.16840.1.813475.3.579.2.173 1981 Unknown [id number] 2.16.840.1.661078.3.579.2.173 1981 Unknown [id number] 2.16.840.1.385151.3.579.2.173 1981 Unknown [id number] 2.16.840.1.993903.3.579.2. 1981 Unknown [id number] 2.16.840.1.601559.3.579.2.173 1981 Unknown [id number] 2.16.840.1.395505.3.579.2.173 1981 Unknown [id number] 2.16.840.1.884301.3.579.2.173 1981 Unknown [id number] 2.16.840.1.557925.3.579.2.173 1981 Unknown [id number] 2.16.840.1.051633.3.579.2.9 1981 Unknown [id number] 2.16.840.1.579788.3.579.2.1258 1981 Unknown [id number] 2.16.840.1.726941.3.579.2.9 1981 Unknown [id number] 2.16.840.1.157071.3.579.2.1258 1981 Unknown [id number] [id number] 1959 Unknown [id number] Unknown [employer] [id number] [facility] [id number] Social History Date Type Detail Facility Unknown if ever smoked [employer] Other Start: 04-14-2025 End: 05-12-2025 Sex Assigned At [employer] Other Tobacco smoking status [facility] Tobacco smoking consumption unknown [facility] Start: 1980 Sex Assigned At Not on file [facility] Start: 07-23-2023 End: 01-23-2025 Tobacco smoking status NHIS Ex-smoker (finding) [facility] Start: 01-23-2025 Sex Female ([facility] Start: 1980 Sex Assigned At Female [facility] History of tobacco use Current smoker [facility] History of tobacco use Cigarette Smoker [facility] Start: 07-23-2023 Tobacco use and exposure Smokeless tobacco non-user [facility] Start: 04-14-2025 End: 05-12-2025 Alcoholic beverage intake Ex-drinker (finding) [facility] Start: 04-14-2025 End: 05-12-2025 History of Social function [facility] NEGATED: Highlighted row [facility] Goals Date Patient Goal Desired Activity /State Clinical Notes 08-01-2023 to 05-12-2025 Aniya Anderson - 05/12/2025 1:15 PM EDTPdeisy Hill MD - 05/12/2025 1:15 PM CAROTPdeisy Hill MD - 04/22/2025 10:01 AM EDTPdeisy Hill MD - 04/21/2025 9:30 AM EDTPatient Instructions Note Date & Type Note Facility 05-12-2025 History of Present illness Narrative Images from the original note were not included. Amna Hill MD Obstetrics and Gynecology Patient: Cliff Zhong : 1980 (45 y.o.) Exam Date: 05/12/2025 Reason for Visit - Chief Complaint Patient presents with Post-op Visit 2 week post-up follow-up following a hysteroscopy D&C on 04/25/25 History of Present Illness History of Present Illness The patient presents with concerns related to hormonal therapy side effects and abnormal uterine bleeding. She recently experienced adverse reactions to progesterone suppositories, including facial swelling, nasal congestion, and anxiety attacks. The patient reports that 24 hours ago, she developed significant facial swelling and nasal congestion, causing sneezing. She also experienced a severe anxiety attack after taking the progesterone suppository. During this episode, she used a pulse oximeter and found her oxygen saturation was in the high eighties, with a resting heart rate above 100 beats per minute. This reaction was similar to her sensitivity reactions to food allergens. The patient attempted to continue the medication at a reduced dose, but ultimately decided to discontinue use due to the severity of side effects. Prior to this acute reaction, the patient had been using progesterone suppositories for approximately 14 weeks before noticing any effects. She reports experiencing milder anxiety at night and the following day, which she initially attributed to the hormonal therapy. The patient's also noticed changes in her behavior related to the medication use. The patient expresses concern about potential bleeding after discontinuing the hormonal therapy. She mentions that in the past, heavier bleeding typically occurred immediately after stopping medication, with some staining possible up to two weeks later. Visit Vitals LMP 12/18/2021 (Approximate) OB Status [...] Hematological: Negative. Psychiatric/Behavioral: Negative. Allergies Allergen Reactions [place] Oil Other Reaction(s): Unknown Milk-Related Compounds Other Reaction(s): headache, flushed Shellfish Allergy Itching Shellfish-Derived Products Other Reaction(s): Unknown Soy Allergy (Obsolete) Swelling Soybean-Containing Drug Products Other Reaction(s): Unknown Wheat Other Reaction(s): feels mentally slow Current Outpatient Medications: miSOPROStol (Cytotec) 200 MCG tablet, 4 tablets orally pre-procedure once, Disp: 4 tablet, Rfl: 0 norethindrone (Micronor) 0.35 MG tablet, Take 1 tablet (0.35 mg) by mouth Daily, Disp: 28 tablet, Rfl: 11 Past Medical History: Diagnosis Date BMI 25.0-25.9,adult Cervical vertebral fracture (HCC) 2015 Encounter for Papanicolaou cervical smear to confirm [...] salpingectomy CERVICAL DISC SURGERY decompression and fusion ENDOMETRIAL ABLATION VAGINAL DELIVERY Family History Problem Relation Name [...] normal or at baseline unless noted below. OBGyn Exam Assessment/Plan ICD-10-CM 1. Encounter for postoperative care Z48.89 2. Abnormal uterine bleeding (AUB) N93.9 3. Hormone imbalance E34.9 4. Adenomyosis N80.03 1. Adverse reaction to hormonal therapy Assessment: Patient experienced significant side effects from hormonal therapy, specifically progesterone suppositories. Symptoms included facial swelling, nasal congestion, anxiety, and a severe panic attack. These side effects occurred within 24 hours of medication administration. Patient also reported being heavily sedated while simultaneously experiencing an anxiety attack. Pulse oximetry showed decreased oxygen saturation (high 80s) and elevated resting heart rate (above 100 bpm), similar to the patient's food sensitivity reactions. A dose reduction was attempted but proved ineffective in managing side effects. Plan: - Discontinue current hormonal therapy (progesterone suppositories) due to severe side effects - Refer patient to Dr. Remedios Mcdaniel at [facility] for specialized management - Order estradiol blood test after patient's next menstrual period - Follow up in one year or as needed 2. Abnormal uterine bleeding Assessment: Patient has a history of abnormal uterine bleeding, which was previously managed with hormonal therapy. The progesterone treatment took 14 weeks to take effect before the recent adverse reactions occurred. Current bleeding status is unclear, but there is a possibility of heavier bleeding immediately after discontinuing the medication, with potential staining up to 2 weeks after the last dose. Plan: - Monitor for any recurrence of abnormal uterine bleeding - Educate patient on potential bleeding patterns: - Possibility of heavier bleeding immediately after discontinuing medication - Potential staining up to 2 weeks after last dose (around May 19, 2025) - Consider alternative treatment options if bleeding recurs, to be discussed at follow-up [facility] Assessment & Plan Images from the original note were not included. Date: 05/12/2025 Last Pap: 04/15/24 - Neg Complaints: No Bleeding since she stopped progesterone Progesterone suppository with sedation and anxiety Pulse OX pulse 100bpm and O2 80's Estradiol 308 History of Present Illness Visit Vitals BP 118/70 (BP Location: Left arm) Ht 5' 7 Wt 155 lb LMP 12/18/2021 (Approximate) BMI 24.28 kg/m OB Status Postmenopausal Smoking Status Former BSA 1.82 m History of Present Illness, Associated Treatments and Results - OB History Para Term AB Living 2 0 0 0 0 0 SAB IAB Ectopic Multiple Live Births 0 0 0 0 0 # Outcome Date GA Lbr Georgi/2nd Weight Sex Type Anes PTL Lv 2 Vag-Spont 1 Vag-Spont Review of Systems - Constitutional: Negative. HENT: Negative. Eyes: Negative. Respiratory: Negative. Cardiovascular: Negative. Gastrointestinal: Negative. Endocrine: Negative. Genitourinary: Negative. Musculoskeletal: Negative. Skin: Negative. Allergic/Immunologic: Negative. Neurological: Negative. Hematological: Negative. Psychiatric/Behavioral: Negative. Allergies Allergen Reactions [place] Oil Other Reaction(s): Unknown Milk-Related Compounds Other Reaction(s): headache, flushed Shellfish Allergy Itching Shellfish-Derived Products Other Reaction(s): Unknown Soy Allergy (Obsolete) Swelling Soybean-Containing Drug Products Other Reaction(s): Unknown Wheat Other Reaction(s): feels mentally slow Current Outpatient Medications: miSOPROStol (Cytotec) 200 MCG tablet, 4 tablets orally pre-procedure once, Disp: 4 tablet, Rfl: 0 norethindrone (Micronor) 0.35 MG tablet, Take 1 tablet (0.35 mg) by mouth Daily, Disp: 28 tablet, Rfl: 11 Past Medical History: Diagnosis Date BMI 25.0-25.9,adult [...] salpingectomy CERVICAL DISC SURGERY decompression and fusion ENDOMETRIAL ABLATION VAGINAL DELIVERY Family History Problem Relation Name [...] Appearance: Normal appearance. Genitourinary: Right Labia: No rash. Left Labia: No rash. No vaginal discharge. No vaginal prolapse present. No vaginal atrophy present. No cervical lesion. HENT: Head: Normocephalic and atraumatic. Neurological: Mental Status: She is alert and oriented to person, place, and time. Psychiatric: Mood and Affect: Mood normal. Behavior: Behavior normal. Assessment/Plan ICD-10-CM 1. Encounter for postoperative care Z48.89 2. Abnormal uterine bleeding (AUB) N93.9 3. Hormone imbalance E34.9 4. Adenomyosis N80.03 Assessment & Plan Continue no medication documented in this encounter [facility] 04-22-2025 History of Present illness Narrative constipation documented in this encounter [facility] 04-21-2025 History of Present illness Narrative Images from the original note were not included. Amna Hill MD Obstetrics and Gynecology Patient: Cliff Zhong : 1980 (45 y.o.) Exam Date: 04/21/2025 Reason for Visit - Chief Complaint Patient presents with Vaginal Bleeding Patient present for problem visit, patient LMP: GERIATRIC AIDE Follow-up for abnormal uterine bleeding, was seen 04/14 and given meclomen to help stop the bleeding, patient was advised to follow-up if bleeding continued after 5 days of medication, patient is still experiencing heavy bleeding reporting 30 mls of blood lost every hour according to the menstrual cup she has been using, she has also passed about 5 golf ball sized clots, she was seen at the [place] [facility] on 04/20 and had an US done where she was told they could not locate the cause of the bleeding, patient states she is still bleeding just as heavy today as she was over the weekend, she also reports that the progesterone is causing her muscle cramps History of Present Illness Cliff presents with a history of irregular menstrual bleeding. The patient reports experiencing infrequent periods, occurring only about twice a year, which is a significant change from her previous menstrual pattern. She describes her previous bleeding as light and continuous, associated with polyps or fibroids. The patient expresses a desire to allow her body to regulate naturally without intervention. She mentions having used progesterone in both oral and suppository forms, reporting no issues with the suppository. Recently, the patient made dietary changes, following a carnivore diet consisting of meat, eggs, and vegetables for about 40 days from December to January. She specifically mentions consuming beef liver and emphasizes that all food consumed was locally raised without hormones. The patient recalls a previous procedure, clarifying that it was not an ablation but a D&C . She notes that after this procedure, her menstrual pattern changed significantly, with periods occurring every 2 months initially, then gradually decreasing in frequency to the current pattern of approximately twice a year. Visit Vitals BP 120/72 (BP Location: Left arm) Wt 156 lb LMP 12/18/2021 (Approximate) BMI 24.43 kg/m OB Status Postmenopausal Smoking Status Former BSA 1.83 m History of Present Illness, Associated Treatments and [...] Hematological: Negative. Psychiatric/Behavioral: Negative. Allergies Allergen Reactions [place] Oil Other Reaction(s): Unknown Milk-Related Compounds Other Reaction(s): headache, flushed Shellfish Allergy Itching Shellfish-Derived Products Other Reaction(s): Unknown Soy Allergy (Obsolete) Swelling Soybean-Containing Drug Products Other Reaction(s): Unknown Wheat Other Reaction(s): feels mentally slow Current Outpatient Medications: miSOPROStol (Cytotec) 200 MCG tablet, 4 tablets orally pre-procedure once, Disp: 4 tablet, Rfl: 0 norethindrone (Micronor) 0.35 MG tablet, Take 1 tablet (0.35 mg) by mouth Daily, Disp: 28 tablet, Rfl: 11 Past Medical History: Diagnosis Date BMI 25.0-25.9,adult Cervical vertebral fracture (HCC) 2015 Encounter for Papanicolaou cervical smear to confirm [...] salpingectomy CERVICAL DISC SURGERY decompression and fusion ENDOMETRIAL ABLATION VAGINAL DELIVERY Family History Problem Relation Name [...] Appearance: Normal appearance. Genitourinary: Right Labia: No rash. Left Labia: No rash. No vaginal discharge. No vaginal prolapse present. No vaginal atrophy present. Cervix is parous. No cervical lesion. HENT: Head: Normocephalic and atraumatic. Neurological: Mental Status: She is alert and oriented to person, place, and time. Psychiatric: Mood and Affect: Mood normal. Behavior: Behavior normal. Menstrual cup removed 5 ccs BRB US The uterus is enlarged in size and has findings suggestive of adenomyosis. There is a subcentimeter intramural fibroid visualized. The endometrium appears normal in contour and thickness. Both ovaries are visible and appear normal in size and echotexture. There is no overt adnexal mass. There is no free fluid visible within the pelvis. Assessment/Plan ICD-10-CM 1. Hormone imbalance E34.9 Estradiol Estradiol miSOPROStol (Cytotec) 200 MCG tablet 2. Abnormal uterine bleeding (AUB) N93.9 miSOPROStol (Cytotec) 200 MCG tablet 3. Adenomyosis N80.03 1. Perimenopausal Irregular Menstrual Bleeding Assessment: Patient is experiencing irregular menstrual bleeding, likely due to perimenopausal hormonal changes. Previous episodes were light and continuous, associated with polyps or fibroids. Recent lab results show elevated estrogen levels with normal progesterone levels, indicating hormonal imbalance. The patient reports having only two periods per year, which is concerning given her non-menopausal status. Previous interventions included a D&C not ablation). The patient expresses a preference for natural approaches and has been using progesterone suppositories without issues. Plan: - Continue current progesterone treatment until April 29 - Schedule dilation and curettage (D&C) procedure for Monday, pending insurance pre-authorization - Procedure will be performed under anesthesia - Informed patient of potential post-operative bleeding - Tele-visit scheduled for to discuss pre-operative details - If bleeding stops before scheduled D&C: - Cancel D&C procedure - Patient to come in the next day for endometrial biopsy - If no bleeding occurs: - Consider cancelling D&C - Schedule endometrial biopsy for the following week - Discussed alternative treatments: - Prescription hormonal pills (if bleeding recurs) - Pswz-kfe-qynggue progesterone or yam creams (as a more natural option) - Advised on the importance of addressing hormonal imbalance to prevent potential long-term health issues 2. Anemia Assessment: Patient's lab results indicate low red blood cell (RBC) count and low calcium (Ca) levels, suggesting anemia. The patient reports following a carnivore diet (meat, eggs, and vegetables) for 40 days, which included consuming beef liver. Plan: - Monitor RBC and calcium levels - Encourage balanced diet to address nutritional deficiencies Assessment & Plan Female patient with abnormal uterine bleeding (AUB) not controlled by progesterone, history of endometrial ablation, and uterine fibroids. Abnormal Uterine Bleeding (AUB) Assessment: Patient presents with ongoing abnormal uterine bleeding that is not responsive to progesterone therapy. The bleeding is reported to be heavy with clots. Patient has a history of endometrial ablation, which was unsuccessful in controlling the bleeding. A uterine fibroid measuring 1.2 cm has been identified on ultrasound, though this size is not typically associated with significant bleeding. The endometrial thickness needs to be evaluated to rule out other causes of AUB. Plan: - Continue current progesterone therapy despite lack of apparent efficacy - Perform transvaginal ultrasound to assess endometrial thickness and further evaluate uterine fibroid - Discuss potential treatment options based on ultrasound findings today including switching to Mirena,D&C hysteroscopy or EMB to evaluate endometrium - Patient to follow up after ultrasound for further management Uterine Fibroid Assessment: Patient has a known uterine fibroid measuring 1.2 cm. While this size is not typically associated with significant symptoms, it may be contributing to the patient's abnormal uterine bleeding. Further evaluation is needed to determine if the fibroid is a primary factor in the patient's symptoms. US today shows intramural myoma ,normal endometrium and adenomyosis documented in this encounter [facility] 04-21-2025 Instructions Amna Hill MD - 04/21/2025 9:30 AM EDT Images from the original note were not included. verviewSymptoms and CausesDiagnosis and TestsManagement and TreatmentPreventionOutlook / PrognosisLiving WithAdditional Common Questions Overview Adenomyosis is when tissue that lines your uterus grows into the muscular lester of your uterus. What is adenomyosis? Adenomyosis (pronounced dwz-ga-n-my-OH-sis ) is when tissue similar to the lining of your uterus (endometrium) starts to grow into the muscle wall of your uterus (myometrium). It causes your uterus to thicken and enlarge -- sometimes, up to double or triple its usual size. Adenomyosis can cause painful periods, heavy or prolonged menstrual bleeding with clotting and abdominal/pelvic pain. How common is adenomyosis? Many women and people assigned female at (AFAB) aren t aware they have adenomyosis because the condition doesn t always cause symptoms. The exact prevalence of adenomyosis is unknown. However, researchers know it s more common in people who: Have had a procedure on their uterus. Are older than 40. Approximately 2% to 5% of adolescents with severely painful cycles have adenomyosis. ADVERTISEMENT [facility] is a non-profit [facility]. Advertising on our site helps support our mission. We do not endorse non-[facility] products or services. Policy Symptoms and Causes What are the signs of adenomyosis? About 1 in 3 people with adenomyosis don t have signs or symptoms. Some people experience: Painful menstrual cramps (dysmenorrhea). Heavy menstrual bleeding (menorrhagia). Abnormal menstruation. Pelvic pain with or without severe cramping. Painful intercourse (dyspareunia). Infertility. Enlarged uterus. Bloating or fullness in your belly (adenomyosis belly). What causes adenomyosis? Researchers don t know why some people develop adenomyosis or what causes it. However, some research suggests hormones, genetics or inflammation/trauma may contribute to adenomyosis. What are the risk factors for this condition? Adenomyosis most commonly occurs in women and people AFAB who: Are between the ages of 40 and 50. Have given at least once. Have had prior uterine surgeries such as uterine fibroid removal or dilation and curettage (D&C). Have endometriosis. However, providers are diagnosing adenomyosis more frequently in people in their 30s who have abnormal vaginal bleeding or painful periods. ADVERTISEMENT What are the complications of adenomyosis? The symptoms of adenomyosis tend to get worse over time. Heavy menstrual bleeding from adenomyosis increases your risk of anemia. Anemia occurs when your body doesn t have enough iron-rich red blood cells. Anemia may cause you to feel fatigued or cold. Can adenomyosis become cancerous? No. Adenomyosis itself doesn t cause cancer or lead to cancer. ADVERTISEMENT Diagnosis and Tests How is adenomyosis diagnosed? Healthcare providers often suspect adenomyosis based on your symptoms and one or more of these tests: Pelvic exam: During a pelvic exam, your provider may notice that your uterus has gotten larger, softer or is painful to the touch. Ultrasound: A transvaginal ultrasound uses sound waves to produce images of your pelvic organs. These images can sometimes show thickening of your uterine wall. Imaging scans: Magnetic resonance imaging (MRI) scans can show uterine enlargement and thickening of certain areas of your uterus. Your provider may rule out more serious conditions with a biopsy. During a biopsy, your provider collects tissue and tests it for signs of more serious diseases. Management and Treatment How is adenomyosis managed or treated? Because the hormone estrogen promotes endometrial tissue growth, adenomyosis symptoms often go away after menopause. In the meantime, these treatments can ease pain, and help with heavy bleeding and other symptoms: Pain medications: Nonsteroidal anti-inflammatory drugs, or NSAIDs, such as ibuprofen (Advil , Motrin ) or naproxen (Aleve ), ease cramping. Hormonal medications: Certain hormonal medications can help with menstruation and abnormal bleeding. Options include control pills, Depo-Provera injection and hormonal intrauterine devices (IUD), such as Mirena . Nonhormonal medication: Medications like tranexamic acid can reduce the amount of vaginal bleeding. Adenomyomectomy: Surgery to remove adenomyosis from your uterine muscle. This procedure is similar to a myomectomy, which removes uterine fibroids. Hysterectomy: This surgery removes your uterus. After a hysterectomy, you won t have a menstrual cycle or be able to get . What happens if adenomyosis is left untreated? Left untreated, adenomyosis can lead to infertility or miscarriage. This is because the embryo can t implant into your uterine lining. Other problems may include chronic pelvic and abdominal pain. Prevention How can I prevent adenomyosis? As the cause of adenomyosis isn t well understood, healthcare providers don t know of documented in this encounter [facility] 04-14-2025 History of Present illness Narrative Images from the original note [...] avoiding a hysterectomy. A follow-up ultrasound at [facility] showed no evidence of fibroids. The patient [...] Hematological: Negative. Psychiatric/Behavioral: Negative. Allergies Allergen Reactions [place] Oil Other Reaction(s): Unknown Milk-Related Compounds Other [...] in 2020, with a subsequent ultrasound at [facility] showing no fibroids. Plan: - Schedule pelvic [...] without corn oil or soy sent to [facility] with cornoil Assessment & Plan documented in this encounter [facility] 11-23-2023 History of Present illness Narrative [facility] SPEECH THERAPY Cancel Note/ No Show Note [...] []OTHER: Electronically signed by: Pastora Ledesma M.A., CCC-BARGE LOADER Date:11/22/2023 documented in this encounter [facility] 11-08-2023 History of Present illness Narrative [facility] Outpatient Speech Therapy DAILY TREATMENT NOTE Date: 11/08/2023 Patient s Name: Cliff Zhong Date of : 1980 (43 y.o.) Gender: female CSN #: [id number] Referring physician:Jeny Caballero Diagnosis: Q38.1 Ankyloglossia INSURANCE Visit Information Onset Date: 82 BARGE LOADER Insurance Information: [place] [employer] Total # of Visits Approved: 30 [...] Manual floor of mouth stretch completed by BARGE LOADER and patient. Reports minimal pain and increased ROM. []Met [x]Partially met []Not met SOCIAL MEDIA DEVELOPER GOALS/ TREATMENT SESSION: Goal 1: Demonstrate functional [...] [] Insurance hold __ Other Minutes Tracking: BARGE LOADER Individual Minutes Time In: 1000 Time Out: 1030 Minutes: 30 Charges: 1 Electronically signed by: Pastora SUBRAMANIANBARGE LOADER Date:11/08/2023 documented in this encounter [facility] 08-01-2023 Evaluation note Encounter Date Diagnosis Assessment Notes Jul, Tongue tie (ICD-10 - Q38.1) Order printed and given to patient for speech therapy. She wanted it faxed to [facility] in [place]. She will call if further treatment is needed. [employer] Other Evaluation noteNo assessment information available [facility] Work Phone: Evaluation note* Diagnosis Encounter for gynecological examination Abnormal uterine bleeding (AUB) Breast tenderness Mastodynia Encounter for gynecological examination without abnormal finding Encounter for screening for cervical cancer documented in this encounter [facility] HealthcareEvaluation note* Diagnosis Hormone imbalance- Primary Abnormal uterine bleeding (AUB) Adenomyosis Endometriosis of uterus documented in this encounter [facility] HealthcareEvaluation note* Diagnosis Constipation, unspecified constipation type- Primary documented in this encounter [facility] HealthcareEvaluation note* Diagnosis Encounter for postoperative care Abnormal uterine bleeding (AUB) Hormone imbalance Adenomyosis Endometriosis of uterus documented in this encounter [facility] HealthcareHistory general Narrative - Reported* Type Description Date Surgical History Cervical fusion 2016 Surgical History Appendectomy 2003 [employer] Other Hospital Discharge instructions Additional Instructions DISCHARGE INSTRUCTIONS FOR DILATION & CURETTAGE (D & C) -Today, outpatient surgery has become a vital link in the health care program. Outpatient D&C is a safe and common practice and this paper is designed to help you know what to expect when you go home and under what circumstances you should give me a call. I will have all of your labs and surgery reports for you when you come in for your follow-up. -To reach me in an emergency, call the office at [[phone]]. TODAY -Take it easy the rest of the day. If you have received a general anesthetic or injections to help you relax for the local procedure you should not drive a car for at least 8 hours after surgery to make sure all of the medication has worn off. ACTIVITIES -There are no restrictions on your normal activities. Generally, you may expect to go back to work the next day unless I have given you other instructions. You should shower daily and practice good personal habits to offset the chance of infection. Avoid intercourse for one week after your surgery and you should not douche. Most women experience minimal disruption of their normal routines. BLEEDING -The amount of bleeding after a D&C varies somewhat. Some women have very little requiring onlya light pad for a few days. Other women may bleed similar to a heavy period for a week or so. [You may wear Tampax if you wish, but be sure to change often.] Do not be alarmed if you expel some clots. -If I have given you a prescription to control bleeding, get it filled on your way home, if possible, and take all the pills according to the directions on the bottle. These pills may increase the amount of your flow and give you cramping similar to first day menstrual cramps. Two Motrin every 6 hours or Anaprox every 12 hours and a heating pad should be sufficient to control any discomfort you may have. If your bleeding becomes bright red and becomes heavy enough that you have used one full pad an hour times 4 hours, I want you to give me a call. Also, if within the first week after surgery you experience chills, fever, and a change in the odor, color, or character of your drainage, you may be developing an infection and you should call me. You may expect your next period anywhere from 2 to 6 weeks after your D&C. CONTROL -Do not assume that you cannot get soon after a D&C. Practice your usual method of control beginning with the first time you have intercourse after you have surgery. If you are taking control pills, please continue them unless told otherwise. DIET -Any diet is permissible FOLLOW UP -Please call the office at [phone] to arrange an appointment [facility] Reason for referral (narrative)No reason for referral information availableSalem Regional Medical Center Work Phone: Summary Purpose Family History Relationship Condition Age at Onset Recorded Date/T daniel father Unknown Heart disease Unknown Hypertension Unknown Diabetes mellitus Unknown Advance Directives Advance Directive Response Recorded Date/ Time Advance Directives No November 30 10:28am Chief Complaint and Reason for Visit Chief Complaint Admit Date Wellness January 23, 2025 8:32am Chief Complaint Admit Date Amb Documentation April 21, 2025 11:3 2am AUB, Fibroid April 25, 2025 6:2 4am Chief Complaint Admit Date Amb Documentation April 21, 2025 11:3 2am AUB, Fibroid April 25, 2025 6:2 4am stung by wasp on nose May 12, 2025 11:01am Additional Source Comments INFORMATION SOURCE (unrecogn ized section and content) DATE CREATED AUTHOR 03/31/2022 [facility] DATE CREATED AUTHOR AUTHOR'S ORGANIZ ATION 11/30/2023 [facility] DATE CREATED AUTHOR AUTHOR'S ORGANIZ ATION 04/29/2025 [facility] DATE CREATED AUTHOR AUTHOR'S ORGANIZ ATION 05/13/2025 [facility] EPIC REASON FOR VISIT (unrecogniz ed section and content) Reason Comments Vaginal Bleeding Reason Comments Vaginal Bleeding Patient present for problem visit, patient LMP: GERIATRIC AIDE Reason Comments Post-op Visit Patient present for PostOp visit. Patient denies any issues or complaints at this time. LMP: GERIATRIC AIDE Care Teams (unrecognized sec tion and content) Classified Advertising Manager Relationship Specialty Start Date End Date Jeny Caballero MD [address] [place] [phone] PCP - General Family Medicine 08/01/23 Team Status: Active Member Role Status Dates Jeny Caballero MD Primary Care Provider Active Team Status: Active Member Role Status Dates Jeny Caballero MD Primary Care Provide r, Attending Provider Active Start: January 16, 2025 Team Status: Active Member Role Status Dates Jeny Caballero MD Primary Care Provide r, Attending Provider Active Start: January 17, 2025 Team Status: Inactive Member Role Status Dates Jeny Caballero MD Primary Care Provide r, Attending Provider Active Start: January 23, 2025 End: January 23, 2025 Classified Advertising Manager Relationship Specialty Start Date End Date Jeny Caballero MD [address] [place] [phone] PCP - General Family Medicine 05/30/23 Classified Advertising Manager Relationship Specialty Start Date End Date Jeny Caballero MD [address] [place] [phone] PCP - General Family Medicine 05/30/23 Classified Advertising Manager Relationship Specialty Start Date End Date Jeny Caballero MD [address] [place] [phone] PCP - General Family Medicine 05/30/23 Team Status: Active Member Role Status Dates Jeny Caballero MD Primary Care Provider Active Start: February 14, 2025 Jeny Caballero MD Attending Provider Active St art: February 14, 2025 Team Status: Active Member Role Status Dates Jeny Caballero MD Primary Care Provider Active Start: April 20, 2025 King Gong DO Attending Provider Active S tart: April 20, 2025 Team Status: Active Member Role Status Dates Jeny Caballero MD Primary Care Provider Active Start: April 21, 2025 Nicolasa Woodward CMA Attending Provider Active Start: April 21, 2025 Team Status: Inactive Member Role Status Dates Jeny Caballero MD Primary Care Provider Active Start: April 25, 2025 End: April 25, 2025 Amna Hill MD Attending Provider Active St art: April 25, 2025 End: April 25, 2025 Team Status: Inactive Member Role Status Dates Jeny Caballero MD Primary Care Provider Active Start: May 12, 2025 End: May 12, 2025 Jeny Caballero MD Attending Provider Active St art: May 12, 2025 End: May 12, 2025 Classified Advertising Manager Relationship Specialty [place] [address] [place] [phone] PCP - General Family Medicine 05/30/23 Goals [...] BE BASED ON THE PRIMARY CLINICAL RECORDS. [facility]. provides no warranty or guarantee of the accuracy or completeness of information in this document.
== END 2025-06-16 15:51 | disposition home or self-care (01) ==
LOC: LAB 15:51
PROVIDERS: PCP Family Medicine; Visit Provider Specialist
DX: E34.9 Endocrine disorder, unspecified (principal)
CPT/HCPCS: 36415; 82670